=== PATIENT | female | born 1935 | race Caucasian/White ===

== ENCOUNTER → 2018-07-09 | Outpatient (CLI) | payer MEDICARE | LOC: LABPAT 09:38 | PROVIDERS: ATTEND Orthopaedic Surgery | DX: Z01.812 Encounter for preprocedural laboratory examination (principal); M16.11 Unilateral primary osteoarthritis, right hip | CPT/HCPCS: 87070 ==

== ENCOUNTER → 2018-07-13 | Outpatient (CLI) | payer MEDICARE ==
[2018-07-13 11:32] LABS: Partial Thromboplastin Time 22.8 sec (22.0-30.0); Prothrombin Time 9.8 sec (9.0-12.0)
== END ==
LOC: LABPAT 10:12
PROVIDERS: ATTEND Orthopaedic Surgery
DX: Z01.812 Encounter for preprocedural laboratory examination (principal); M16.11 Unilateral primary osteoarthritis, right hip; Z51.81 Encounter for therapeutic drug level monitoring; Z79.01 Long term (current) use of anticoagulants
CPT/HCPCS: 36415; 85610; 85730

== ENCOUNTER 2018-07-16 07:30 | Inpatient (IN) | payer MEDICARE ==
[2018-07-10 13:53] VITALS: BMI 26.2
--- NOTE | 2018-07-15 21:54 | HP ---
HISTORY AND PHYSICAL SURGERY SCHEDULED: 07/16/2018 Edie Beasley is a 83-year-old patient seen with symptomatic right hip osteoarthritis. We discussed treatment options. She elected to proceed with direct anterior right total hip arthroplasty. Consent regarding procedure obtained. Medical clearance by Dr. Jan Tinoco. PAST MEDICAL HISTORY: Hypercholesterolemia, hypertension. PAST SURGICAL HISTORY: Left total knee arthroplasty. DAILY MEDICATIONS: Atorvastatin, losartan. ALLERGIES: None reported. SOCIAL HISTORY: Patient denies current tobacco use. PHYSICAL EXAMINATION: Physical evaluation of the right hip: There is a limited range of motion with severe pain. Positive impingement sign. Straight leg raise is negative. Distal neurovascular exam intact. RADIOGRAPHS: Radiographs of the right hip reveals severe osteoarthritic changes. IMPRESSION: 1. Right hip osteoarthritis. 2. Hypertension. 3. Hyperlipidemia. PLAN: Direct anterior right total hip arthroplasty. MMODL / IJN: [id number] /
[~2018-07-16 07:30] MED LIST: ACETAMINOPHEN TAB 500 MG TAB PO ONE; DEXAMETHASONE SOD PHOSPHATE 10 MG/ML 1 ML VIAL IV ONE; LIDOCAINE 1% 20 ML VIAL (10MG/ML) FOR IV START INTRADERMA PRN; MELOXICAM 7.5 MG TAB PO ONE; MIDAZOLAM 2 MG/2 ML VIAL IV PRN; ONDANSETRON 4 MG/2 ML VIAL IVP ONE; TRANEXAMIC ACID 1,000 MG in SODIUM CHLORIDE 0.9% 50 ML IVPB ONE; ceFAZolin IN SWFI 2 GM/20 ML SYRINGE IVP ONE; fentaNYL (PF) 50 MCG/ML 2 ML AMP IV PRN
[2018-07-16] MEDS: LACTATED RINGERS 1,000 ML IV SCH (11:22)
[2018-07-16] MEDS ORDERED: ROPIVACAINE 246.25 MG, EPINEPHrine 0.5 MG, KETOROLAC 30 MG, cloNIDine HCL/PF 80 MCG, WA... MISCELLANE ONE ×5 (12:04)
[2018-07-16] MEDS ORDERED: PROPOFOL 10 MG/ML 20 ML VIAL IV ONE (12:46)
[2018-07-16] MEDS ORDERED: diphenhydrAMINE 50 MG/ML 1 ML VIAL ONE (12:46)
[2018-07-16] MEDS ORDERED: SODIUM CHLORIDE 0.9% 100 ML BAG ONE (12:46)
[2018-07-16] MEDS ORDERED: MIDAZOLAM 2 MG/2 ML VIAL ONE (12:46)
[2018-07-16] MEDS ORDERED: TRANEXAMIC ACID 1,000 MG/10 ML VIAL ONE (12:46)
[2018-07-16] MEDS ORDERED: ceFAZolin 3,000 MG in SODIUM CHLORIDE 0.9% IRRIGATIO 3,000 ML IRRIGATION ONE (13:26)
--- NOTE | 2018-07-16 14:44 | FL ---
EXAMINATION TYPE: FL guidance operating room DATE OF EXAM: 07/16/2018 HISTORY: Flouroscopy time 15 seconds of fluoroscopy provided. IMPRESSION: 1. Fluoroscopy time.
--- NOTE | 2018-07-16 14:45 | XR ---
EXAMINATION TYPE: XR Hip Limited RT DATE OF EXAM: 07/16/2018 COMPARISON: NONE HISTORY: Postop TECHNIQUE: One view submitted. FINDINGS: There is a prosthetic hip in near anatomic alignment. There is soft tissue edema and emphysema. IMPRESSION: 1. Postoperative change. Appears in near-anatomic alignment.
--- NOTE | 2018-07-16 14:46 | P.OP ---
Date of Procedure: 07/16/18 Preoperative Diagnosis: Right hip osteoarthritis Postoperative Diagnosis: Right hip osteoarthritis Procedure(s) Performed: Direct anterior right total hip arthroplasty Implants: 1. Depuy Actis size 6 standard collar press-fit femoral stem 2. Depuy pinnacle press-fit acetabular shell 52 mm 3. Depuy pinnacle polyethylene acetabular liner neutral 36 mm ID 52 mm OD 4. Depuy metal femoral head 36 mm -2 Anesthesia: local, spinal Surgeon: Abhishek Moran Buffet Attendant #1: Sinan Martinez Estimated Blood Loss (ml): 200 Pathology: other (Femoral head) Condition: stable Disposition: PACU Indications for Procedure: 83-year-old patient seen with symptomatic right hip osteoarthritis. After having treatment options discussed she elected to proceed with right total hip arthroplasty. Operative Findings: See description of procedure Description of Procedure: The patient was taken to the operative suite. Patient underwent a spinal anesthetic by the department of anesthesia. Patient was then transferred to the [place] table. Patient was given preoperative IV antibiotics and TXA. Both lower extremities were placed in standard leg spars. The hip was then prepped and draped in the normal sterile orthopedic fashion. A standard anterior incision was made beginning 3 cm lateral and 1 cm distal to the ASIS extending 10 cm. Dissection was then carried down through the subcutaneous soft tissues down to the fascia overlying the tensor fascia alex. An incision was now made through the fascia. Careful dissection was taken down exposing the tensor fascia alex muscle. A Cobra retractor was now placed along the medial femoral neck and a second one along the lateral femoral neck. The venous circumflex vessels were now identified, cauterized and clipped. We identified the anterior hip capsule. An incision was made through the hip capsule along the lateral border. I performed a partial anterior capsulectomy. Retractors were now placed around the femoral neck itself. A femoral neck cut was now made with a sagittal saw. It was completed with an osteotome at the lateral neck area. The femoral head was now removed without difficulty. There was moderate osteoarthritis of the femoral head and moderate/severe osteoarthritis of the acetabulum The extremity was now rotated to 45 of external rotation. It was locked in position. Residual labrum was now debrided out. Serial reaming was performed of the acetabulum while Marcus BERNARD assisted holding an anterior retractor for exposure. Once we reached the appropriate size and a trial was position and fit nicely. The appropriate size was now chosen opened and made available. It was introduced into the acetabulum without difficulty. The C-arm /fluoroscopy was now brought into the operative field. We made sure we had a true AP pelvic view. We now under direct C-arm/fluoroscopy introduced into the acetabular component with appropriate version and inclination. I held the cup in appropriate position well Marcus BERNARD used a mallet to seat the acetabular component. I noted the component now to be well seated and stable. Acetabular cup introduce her was removed. The C-arm was pulled back. An appropriate liner was introduced and clicked into position. It was felt to be stable. At this point retractors were removed. The extremity was now placed into 120 external rotation with no traction. The leg was now dropped to the ground and adducted. Appropriate retractors were now positioned along the proximal femur. We also placed our femoral look into position. Additional capsular releasing was performed to gain access to the proximal femur. We now used a box osteotome. A canal finder was now utilized. Serial broaching was now performed with the assistance of Marcus BERNARD tapping the broaches down with a mallet while held the broach in appropriate rotation and position. This was done until we reached the appropriate size with good overall rotational stability. Appropriate calcar planing was performed. A trial head/neck was placed into position. The hip was now reduced. The C-arm/fluoroscopy was brought back into the operative field. A spot film was obtained of the nonoperative hip. A spot film was obtained of the trial components. Overlays were performed, we noted good overall alignment and positioning for determining leg length. The C-arm/fluoroscopy was pulled back. Retractors were repositioned and the hip was dislocated. The leg was again taken down to the ground and adducted. Appropriate retractors were repositioned as well as the femoral hook. All trial components were removed. The femoral implant was opened along with the femoral head. The femoral implant was introduced on the appropriate handle into our pre-broached area. I held the component position well Marcus BERNARD used a mallet to seat the femoral component. The femoral component was now noted to be well seated and stable.. The femoral head was introduced with good positioning and fixation noted. Retractors were now removed. The hip was now reduced. There appeared be good positioning of the hip confirmed on intraoperative fluoroscopy. Spot films were obtained to document this. A second gram of TXA was given. The deep and superficial soft tissues were infiltrated with local analgesic. Bipolar cautery had been utilized intermittently through the procedure for hemostasis. The wound was irrigated copiously with pulse lavage mechanical irrigation. The fascia was repaired with Vicryl suture. The subcutaneous soft tissues were repaired in layers with Vicryl suture. The skin was approximated with pernio/Dermabond. Sterile dressings were applied. Patient was then awakened, transferred to a bed and taken to recovery in stable condition. Marcus BERNARD assisted with the complex procedure.
[2018-07-16] MEDS ORDERED: HYDROcodone/APAP 5-325MG 1 EACH TAB PO PRN (14:47)
[2018-07-16] MEDS ORDERED: traMADol 50 MG TAB PO PRN (14:47)
[2018-07-16] MEDS ORDERED: HYDROmorphone 1 MG/ML 1 ML SYRINGE IVP PRN ×3 (14:47)
[2018-07-16] MEDS ORDERED: ONDANSETRON 4 MG/2 ML VIAL IVP PRN (14:47)
[2018-07-16] MEDS ORDERED: NALOXONE 0.4 MG/ML 1 ML VIAL IV PRN (14:47)
[2018-07-16] MEDS ORDERED: LACTATED RINGERS 1,000 ML IV ONE (18:03)
[2018-07-16] MEDS: ceFAZolin IN SWFI 2 GM/20 ML SYRINGE IVP SCH (23:23)
[2018-07-16] MEDS: HYDROcodone/APAP 5-325MG 1 EACH TAB PO PRN (23:23)
[2018-07-16] MEDS: SENNOSIDES-DOCUSATE SODIUM 1 EACH TAB PO SCH (23:23)
[2018-07-17] MEDS: HYDROcodone/APAP 5-325MG 1 EACH TAB PO PRN ×2 (05:59→12:01)
[2018-07-17] MEDS: ceFAZolin IN SWFI 2 GM/20 ML SYRINGE IVP SCH (05:59)
[2018-07-17] MEDS: LACTATED RINGERS 1,000 ML IV SCH ×2 (06:10→22:09)
[2018-07-17 07:36] LABS: Basophils % (A) 0 %; Eosinophils % (A) 0 %; HCT 29.7 % (34.0-46.0); Lymphocytes # (A) 0.9 k/uL (1.0-4.8); Lymphocytes % (A) 11 %; MCH 32.8 pg (25.0-35.0); MCHC 33.5 g/dL (31.0-37.0); MCV 97.9 fL (80.0-100.0); Mean Platelet Volume 7.2; Monocytes # (A) 0.5 k/uL (0-1.0); Monocytes % (A) 6 %; Neutrophils # (A) 6.8 k/uL (1.3-7.7); Neutrophils % (A) 82 %; Platelet Count 181 k/uL (150-450); RBC 3.04 m/uL (3.80-5.40); RDW 13.2 % (11.5-15.5); WBC 8.4 k/uL (3.8-10.6)
[2018-07-17] MEDS ORDERED: LORATADINE 10 MG TAB PO PRN (09:27)
[2018-07-17] MEDS: ENOXAPARIN 40 MG/0.4 ML SYRINGE SQ SCH (10:25)
[2018-07-17] MEDS: FAMOTIDINE 20 MG TAB PO SCH (10:25)
[2018-07-17] MEDS: CITALOPRAM HYDROBROMIDE 20 MG TAB PO SCH (10:26)
[2018-07-17] MEDS: MULTIVITAMINS, THERA 1 EACH TAB PO SCH (10:26)
[2018-07-17] MEDS: VIT A,C & E-LUTEIN-MINERALS 1 EACH TAB PO SCH (12:02)
--- NOTE | 2018-07-17 13:26 | P.PN ---
Progress Note - Text Progress Note Date: 07/17/18 Patient seen resting comfortably in bed. Patient reports some pain in the hip. Patient denies any other current complaints. Incision stable. Gentle log roll with no pain. Distal neurovascular exam intact. Negative Blaise Lara. Impression: Status post right total hip arthroplasty Plan: Pain management Physical therapy Anticipate discharge tomorrow
[2018-07-17] MEDS: HYDROcodone/APAP 7.5-325MG 1 EACH TAB PO PRN ×2 (13:54→20:36)
--- NOTE | 2018-07-17 14:55 | P.CONS ---
History of Present Illness - Reason for Consult Consult date: 07/17/18 Medical management Requesting physician: Abhishek Moran - Chief Complaint Right total knee arthroplasty - History of Present Illness Is a pleasant 83-year-old female patient of Dr. Jan Tinoco. She has underlying history of hypertension hyperlipidemia osteoporosis skin cancer admitted service of Dr. Moran for right total knee arthroplasty performed on 07/17/2018. Patient is doing well postoperatively without any nausea no vomiting, pain control is adequate, patient is receiving opiates for pain control, she is performing therapies are as recommended, no lightheadedness no dizziness no chest pain no dyspnea and exertion. Patient denies any recent falls from home, no assistive devices for ambulation prior to admission. Patient denies any history of CVA RI CAD DVT or PE in the past. And she is expected to be discharged to home with home therapies. She progressed well Review of Systems Constitutional: Denies as per HPI, Denies anorexia, Denies chills, Denies chronic headaches, Denies chronic pain, Denies daytime sleepiness, Denies fatigue, Denies fever, Denies lethargy, Denies malaise, Denies night sweats, Denies poor appetite, Denies sweats, Denies weakness, Denies weight gain, Denies weight loss Cardiovascular: Reports as per HPI, Denies chest pain, Denies claudication, Denies decreased exercise tolerance, Denies dyspnea on exertion, Denies edema, Denies high blood pressure, Denies irregular heart beat, Denies leg edema, Denies lightheadedness, Denies orthopnea, Denies palpitations, Denies paroxysmal nocturnal dyspnea, Denies phlebitis, Denies rapid heart beat, Denies shortness of breath, Denies syncope Respiratory: Reports as per HPI, Denies congestion, Denies cough, Denies cough with sputum, Denies dyspnea, Denies excessive sputum, Denies hemoptysis, Denies home oxygen, Denies pain, Denies pain on inspiration, Denies pleurisy, Denies respiratory infections, Denies sleep apnea, Denies snoring, Denies wheezing Gastrointestinal: Reports as per HPI, Denies abdominal pain, Denies belching, Denies bloating, Denies BRBPR, Denies change in bowel habits, Denies coffee ground emesis, Denies constipation, Denies diarrhea, Denies dyspepsia, Denies early satiety, Denies excessive gas, Denies heartburn, Denies hematemesis, Denies hematochezia, Denies indigestion, Denies jaundice, Denies lactose intolerance, Denies loss of appetite, Denies melena, Denies nausea, Denies vomiting Genitourinary: Reports as per HPI Menstruation: Reports as per HPI, Reports postmenopausal Musculoskeletal: Reports as per HPI, Reports gait dysfunction, Reports loss of height, Reports low back pain, Denies arm numbness/tingling, Denies atrophy, Denies fractures, Denies frequent falls, Denies hot joints, Denies leg numbness/ tingling, Denies limitation of motion, Denies morning stiffness, Denies muscle cramps, Denies muscle weakness, Denies myalgias, Denies neck pain, Denies neck stiffness, Denies prior amputations, Denies redness of joints, Denies shooting arm pain, Denies shooting leg pain Integumentary: Reports as per HPI, Denies acne, Denies boils, Denies brittle nails, Denies change in hair/nails, Denies color changes, Denies darkening of skin, Denies depigmentation, Denies dryness, Denies foot/leg ulcers, Denies growths, Denies hirsutism, Denies lesions, Denies onychomycosis, Denies pruritus , Denies rash, Denies sores, Denies striae, Denies unusual bruising, Denies wounds Neurological: Reports as per HPI, Denies aphasia, Denies ataxia, Denies balance difficulties, Denies burning pain, Denies change in mentation, Denies change in smell/taste, Denies change in speech, Denies confusion, Denies convulsions, Denies double vision, Denies gait dysfunction, Denies head injury, Denies headaches, Denies hearing difficulties, Denies lack of coordination, Denies loss of vision, Denies memory loss, Denies migraines, Denies motor disturbance, Denies numbness, Denies paralysis, Denies paresthesias, Denies seizures, Denies sensory deficit, Denies spasticity, Denies syncope, Denies tic, Denies tingling , Denies transient paralysis, Denies tremors, Denies vertigo, Denies weakness, Denies visual changes Psychiatric: Denies as per HPI, Denies anhedonia, Denies anxiety, Denies anxiety attacks, Denies change in appetite, Denies change in libido, Denies change in sleep habits, Denies confusion, Denies depression, Denies difficulty concentrating, Denies disorientation, Denies hallucinations, Denies hopelessness , Denies hypersomnia, Denies insomnia, Denies irritability, Denies memory loss, Denies mood swings, Denies paranoia, Denies sadness/tearfulness, Denies sleep disturbances, Denies suicidal ideation Endocrine: Reports as per HPI, Denies cold intolerance, Denies deepening of the voice, Denies excessive sweating, Denies excessive thirst, Denies fatigue, Denies flushing, Denies heat intolerance, Denies high blood sugars, Denies increase in ring/shoe/hat size, Denies low blood sugars, Denies nocturia, Denies palpitations, Denies polydipsia, Denies polyphagia, Denies polyuria, Denies proptosis, Denies recent glucocorticoid use, Denies thyroid mass, Denies weight change Hematologic/Lymphatic: Reports as per HPI 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 History of Any Multi-Drug Resistant Organisms: None Reported Past Surgical History: Joint Replacement, Orthopedic Surgery Additional Past Surgical History / Comment(s): lt knee replacement, lt femur fx repair with hardware Past Anesthesia/Blood Transfusion Reactions: Previous Problems w/ Anesthesia, Motion Sickness Additional Past Anesthesia/Blood Transfusion Reaction / Comm: hard time waking from anesthesia Smoking Status: Former smoker - Past Family History Mother History Unknown: Yes Family Medical History: Neurologic Disorder (Myasthenia gravis) Additional Family Medical History / Comment(s): myasthenia gravis Sister(s) History Unknown: Yes (Macular degeneration) Family Medical History: Diabetes Mellitus Additional Family Medical History / Comment(s): phlebitis Father Family Medical History: Congestive Heart Failure (CHF) Brother(s) Family Medical History: Cancer (Prostate) Daughter(s) Family Medical History: Osteoarthritis (OA) Son(s) Family Medical History: Unable to Obtain Medications and Allergies Home Medications Medication Instructions Recorded Confirmed Type Atorvastatin [Lipitor] 10 mg PO HS 07/10/18 07/16/18 History Calcium Carbonate/Vitamin D3 1 tab PO DAILY 07/10/18 07/16/18 History [Calcium 500-Vit D3 200 Tablet] Citalopram Hydrobromide [CeleXA] 20 mg PO DAILY 07/10/18 07/16/18 History Fish Oil/Dha/Epa [Fish Oil 1,200 1 cap PO DAILY 07/10/18 07/16/18 History mg Fish Oil] Loratadine [Claritin] 10 mg PO DAILY 07/10/18 07/16/18 History Losartan [Cozaar] 100 mg PO HS 07/10/18 07/16/18 History Multivitamins, Thera [Multivitamin 1 tab PO DAILY 07/10/18 07/16/18 History (formulary)] Vit C/E/Zn/Coppr/Lutein/Zeaxan 1 cap PO BID 07/10/18 07/16/18 History [Preservision Areds 2 Softgel] Allergies Allergy/AdvReac Type Severity Reaction Status Date / Time gluten Allergy Nausea & Verified 07/16/18 18:17 Vomiting & Diarrhea Physical Exam Vitals: Vital Signs Temp Pulse Pulse Pulse Resp BP Pulse Ox 07/17/18 07:39 97.9 F 61 16 121/52 92 L 07/17/18 00:00 98.1 F 71 15 118/56 94 L 07/16/18 20:10 76 71 07/16/18 19:00 98.2 F 78 16 158/64 95 07/16/18 18:26 98.5 F 84 16 151/57 90 L 07/16/18 18:00 76 16 145/56 97 07/16/18 17:15 76 22 144/53 96 07/16/18 16:30 77 18 146/66 94 L 07/16/18 16:00 76 16 132/59 95 07/16/18 15:45 73 12 135/55 96 07/16/18 15:30 73 16 133/66 96 07/16/18 15:18 75 16 157/84 96 07/16/18 15:06 97.7 F 75 16 184/57 96 Intake and Output 07/16/18 07/17/18 07/17/18 22:59 06:59 14:59 Intake Total 1000 560 Balance 1000 560 Intake: IV 1000 Intake, IV Titration 160 Amount Lactated Ringers 1,000 ml 160 @ 20 mls/hr IV .Q24H [facility] Rx#:[id number] Oral 400 Other: Voiding Method Bedside Commode # Voids 1 2 - Constitutional General appearance: average body habitus, cooperative, no disheveled, no mild distress, no morbidly obese, no no acute distress, no obese, no severe distress , no thin - EENT Eyes: no abnormal pupil, anicteric sclerae, no disc margins sharp, no edentulous , EOMI, PERRLA, no fundus normal, no photophobia, dentition normal, no poor dentition, no ptosis, no scleral icterus, normal appearance ENT: hard of hearing, no hearing grossly normal, NA/AT, normal oropharynx, no other, no pharyngeal erythema, no thrush, no tonsillar exudates, no tonsillar swelling - Respiratory Respiratory: bilateral: CTA, negative: diminished, dullness, rales, rhonchi, wheezing, prolonged expiration - Cardiovascular Rhythm: regular Heart sounds: normal: S1 Abnormal Heart Sounds: no systolic murmur, no diastolic murmur, no rub, no S3 Gallop, no S4 Gallop, no click, no other - Gastrointestinal General gastrointestinal: no absent bowel sounds, no decreased bowel sounds, no distended, no hepatomegaly, no hyperactive bowel sounds, normal bowel sounds, no organomegaly, no rigid, no scaphoid, soft, no splenomegaly, no tenderness, no umbilical hernia, no ventral hernia - Neurologic Neurologic: CNII-XII intact - Musculoskeletal Musculoskeletal: generalized weakness, strength equal bilaterally - Psychiatric Psychiatric: A&O x's 3, appropriate affect Results CBC & Chem 7: 07/17/18 07:08 07/16/18 11:21 Labs: Abnormal Lab Results - Last 24 Hours (Table) 07/17/18 Range/Units 07:08 RBC 3.04 L (3.80-5.40) m/uL Hgb 10.0 L (11.4-16.0) gm/dL Hct 29.7 L (34.0-46.0) % Lymphocytes # 0.9 L (1.0-4.8) k/uL Laboratory Results WBC 8.4 k/uL (3.8-10.6) 07/17/18 07:08 RBC 3.04 m/uL (3.80-5.40) L 07/17/18 07:08 Hgb 10.0 gm/dL (11.4-16.0) L 07/17/18 07:08 Hct 29.7 % (34.0-46.0) L 07/17/18 07:08 MCV 97.9 fL (80.0-100.0) 07/17/18 07:08 MCH 32.8 pg (25.0-35.0) 07/17/18 07:08 MCHC 33.5 g/dL (31.0-37.0) 07/17/18 07:08 RDW 13.2 % (11.5-15.5) 07/17/18 07:08 Plt Count 181 k/uL (150-450) 07/17/18 07:08 Neutrophils % 82 % 07/17/18 07:08 Lymphocytes % 11 % 07/17/18 07:08 Monocytes % 6 % 07/17/18 07:08 Eosinophils % 0 % 07/17/18 07:08 Basophils % 0 % 07/17/18 07:08 Neutrophils # 6.8 k/uL (1.3-7.7) 07/17/18 07:08 Lymphocytes # 0.9 k/uL (1.0-4.8) L 07/17/18 07:08 Monocytes # 0.5 k/uL (0-1.0) 07/17/18 07:08 Eosinophils # 0.0 k/uL (0-0.7) 07/17/18 07:08 Basophils # 0.0 k/uL (0-0.2) 07/17/18 07:08 Potassium 4.1 mmol/L (3.5-5.1) 07/16/18 11:21 Blood Type O Negative 07/09/18 09:45 Blood Type Confirm O Negative 07/16/18 11:15 Blood Type Recheck CABO Indicated 07/09/18 09:45 Antibody Screen NEGATIVE 07/09/18 09:45 Spec Expiration Date 07/18/2018 07/09/18 09:45 Assessment and Plan Plan: 1. Right total knee arthroplasty performed on 07/16/2018, postop day #1, patient is receiving DVT prophylaxis with aspirin, continue incentive spirometry , opiates for pain control, and physical therapy of additional therapy. Patient expected to be discharged with home therapies, depending on physical endurance and other symptoms, skilled ECF is on backup 2. Hyperlipidemia on Lipitor 3. Disorder of bone density, possible osteoporosis, continue Os-Doroteo vitamin D, patient is not on any biphosphonate's prior to admission, appropriate bone density monitoring as outpatient as scheduled 4. Hypertension currently normotensive, on losartan 100 mg daily 6. Dysthymia stable on Celexa 20 no changes made 7. Anemia, possibly multifactorial, we will check CBC in a.m., iron supplementation started DVT prophylaxis aspirin 81 mg twice a day post discharge, continue on Lovenox 40 mg daily. Patient doesn't have any history of previous DVT in the past for PE in the past GI prophylaxis. Pepcid Discharge planning home therapies as expected Thank you Dr. Moran allowing us to participate in the care The patient. We' ll follow her with you during this current hospitalization, recommendations to her treatment to be made on her clinical progress
[2018-07-17] MEDS: FERROUS SULFATE 325 MG TAB PO SCH (19:19)
[2018-07-17] MEDS: SENNOSIDES-DOCUSATE SODIUM 1 EACH TAB PO SCH (20:35)
[2018-07-17] MEDS ORDERED: LOSARTAN 50 MG TAB PO SCH (21:00)
[2018-07-17] MEDS ORDERED: ATORVASTATIN 10 MG TAB PO SCH (21:00)
[2018-07-18] MEDS: HYDROcodone/APAP 7.5-325MG 1 EACH TAB PO PRN ×2 (02:11→09:15)
[2018-07-18 02:17] VITALS: RESP 16; TEMP 98.5
[2018-07-18 07:57] VITALS: BP 131/62; PULSE 75
[2018-07-18] MEDS ORDERED: CALCIUM CARB-VIT D 500MG-200UN 1 EACH TAB PO SCH (09:00)
[2018-07-18] MEDS: CITALOPRAM HYDROBROMIDE 20 MG TAB PO SCH (09:11)
[2018-07-18] MEDS: FAMOTIDINE 20 MG TAB PO SCH (09:11)
[2018-07-18] MEDS: ENOXAPARIN 40 MG/0.4 ML SYRINGE SQ SCH (09:11)
--- NOTE | 2018-07-18 10:13 | P.PN ---
Subjective Progress Note Date: 07/18/18 Principal diagnosis: Status post right total hip arthroplasty Patient seen today resting her hospital bed, she appears comfortable. She notes some discomfort ambulating. Denies any headaches, chest pain or shortness of breath. Objective - Vital Signs Vital signs: Vital Signs Temp 98.5 F 07/18/18 07:00 Pulse 75 07/18/18 07:00 Resp 16 07/18/18 07:00 BP 131/62 07/18/18 07:00 Pulse Ox 92 L 07/18/18 07:00 Intake & Output 07/17/18 07/18/18 07/18/18 18:59 06:59 18:59 Intake Total 400 Balance 400 Intake: Oral 400 Other: Voiding Method Toilet # Voids 2 2 - Exam Right lower extremity: Incision is clean, dry, and intact. Exofin is in good condition. There is minimal soft tissue swelling and ecchymosis surrounding the medial and lateral aspects of the incision. Calf is soft, no tenderness with palpation. Plantar flexion, dorsiflexion, EHL, FHL are intact. Sensory exam to light touch throughout the extremity is intact, dorsal pedis pulses 2+. - Labs CBC & Chem 7: 07/17/18 07:08 07/16/18 11:21 Assessment and Plan Plan: Assessment: Postoperative day #2 status post right total hip arthroplasty Plan: Pain control, we'll discharge on oral medication GI and DVT prophylaxis, aspirin 81 mg twice a day Home therapy and nursing after discharge Wound care instructions discussed Medical recommendations Discharge planning: Hopeful discharge to home today Time with Patient: Less than 30
[2018-07-18 10:41] LABS: Calcium 8.2 mg/dL (8.4-10.2)
[2018-07-18 10:45] LABS: HCT 29.8 % (34.0-46.0); MCH 32.9 pg (25.0-35.0); MCHC 33.5 g/dL (31.0-37.0); MCV 98.1 fL (80.0-100.0); Mean Platelet Volume 7.8; Platelet Count 170 k/uL (150-450); RBC 3.03 m/uL (3.80-5.40); RDW 13.3 % (11.5-15.5); WBC 7.2 k/uL (3.8-10.6)
[2018-07-18] MEDS: FERROUS SULFATE 325 MG TAB PO SCH (11:42)
[2018-07-18] MEDS: VIT A,C & E-LUTEIN-MINERALS 1 EACH TAB PO SCH (11:42)
[2018-07-18] MEDS: MULTIVITAMINS, THERA 1 EACH TAB PO SCH (11:42)
--- NOTE | 2018-07-18 12:39 | P.DS ---
Providers Date of admission: 07/16/18 10:26 Expected date of discharge: 07/18/18 Attending physician: Abhishek Moran Consults: 07/16/18 14:47 Consult Physician Routine Consulting Provider: Grupo Tinoco Consult Reason/Comments: Medical management Do you want consulting provider notified?: Yes 07/16/18 18:25 Consult Physician Routine Consulting Provider: Dean Aguirre Reason/Comments: medical managment Do you want consulting provider notified?: Yes Primary care physician: Grupo Tinoco Hospital Course: Date of admission: 07/16/2018 Date of discharge: 07/18/2018 Admission diagnosis: Status post right total hip arthroplasty Discharge diagnosis: Same Attending physician: Dr. Moran Surgical procedures: Right total hip arthroplasty Brief history: Patient is a 83-year-old female with a history of progressive primary right hip osteoarthritis. At this point patient has failed conservative treatment measures and has opted to proceed with a elective right total hip arthroplasty. Hospital course: Details of patient's surgery can be found in operative report. Patient tolerated the procedure well and was subsequently transported to orthopedic floor. Patient's orthopeidc and medical care was provided daily. Patient had daily laboratory tests performed for evaluation of overall blood counts. Patient had daily physical therapy to include strengthening range of motion as well as education with walker ambulation. Patient was treated with Lovenox for their postoperative DVT prophylaxis during their inpatient stay. Patient was noted to have a relatively uneventful postoperative course. Patient reported satisfactory pain control with oral pain medications by postoperative day 0. Patient showed satisfactory progress with physical therapy. Patient moved steadily through the program and had no difficulty meeting the goals by postoperative day 2. Given patient's otherwise satisfactory course and having met physical therapy goals, plan is to discharge patient home on postoperative day 2. Discharge condition/disposition: Patient will be discharged home in stable condition. Discharge medications: Instructions are given on resumption of patient's normal daily medications per primary care recommendation, in addition patient will be prescribed Highland 7.5 mg/325 mg, aspirin 81 mg, ferrous sulfate 325 mg. Discharge instructions: 1. Wound care and infection precautions, keep incision dry and covered while showering, no lotions, creams, moisturizers. No soaking, tubs, pools, hottubs. Do not scrub over the incision. 2. Weight-bear as tolerated with walker / cane until follow-up. 3. Ice and elevate when necessary. Do not exceed 20 minutes per hour with ice pack. 4. Utilize compression sleeve until seen at first follow up appointment. 5. Visiting nursing care. 6. Home physical therapy. 7. Pain meds and anticoagulants per prescription. 8. Pain medication has potential to cause constipation. Increase oral fluid and fiber intake. Contact primary care provider if you have not had a bowel movement within 48 hours after discharge 9. No anti-inflammatory medication until discussed at first post operative visit, this including Motrin, Aleve, Mobic, Diclofenac. 10. Follow up in office at 2 weeks postop with Marcus Martinez PA-C 11. Follow up with your primary care doctor 7-10 days after discharge. 12. Contact [facility] with any questions, . Procedures: Right total hip arthroplasty Patient Condition at Discharge: Good Plan - Discharge Summary Discharge Rx Participant: Yes New Discharge Prescriptions: New Ferrous Sulfate [Feosol] 325 mg PO DAILY #30 tab Aspirin [Adult Low Dose Aspirin EC] 81 mg PO BID #60 tablet. HYDROcodone/APAP 7.5-325MG [Highland 7.5] 1 - 2 each PO Q6HR PRN #40 tab PRN Reason: Pain No Action Loratadine [Claritin] 10 mg PO DAILY Calcium Carbonate/Vitamin D3 [Calcium 500-Vit D3 200 Tablet] 1 tab PO DAILY Multivitamins, Thera [Multivitamin (formulary)] 1 tab PO DAILY Fish Oil/Dha/Epa [Fish Oil 1,200 mg Fish Oil] 1 cap PO DAILY Losartan [Cozaar] 100 mg PO HS Citalopram Hydrobromide [CeleXA] 20 mg PO DAILY Atorvastatin [Lipitor] 10 mg PO HS Vit C/E/Zn/Coppr/Lutein/Zeaxan [Preservision Areds 2 Softgel] 1 cap PO BID Discharge Medication List Atorvastatin [Lipitor] 10 mg PO HS 07/10/18 [History] Calcium Carbonate/Vitamin D3 [Calcium 500-Vit D3 200 Tablet] 1 tab PO DAILY [History] Citalopram Hydrobromide [CeleXA] 20 mg PO DAILY 07/10/18 [History] Fish Oil/Dha/Epa [Fish Oil 1,200 mg Fish Oil] 1 cap PO DAILY 07/10/18 [History] Loratadine [Claritin] 10 mg PO DAILY 07/10/18 [History] Losartan [Cozaar] 100 mg PO HS 07/10/18 [History] Multivitamins, Thera [Multivitamin (formulary)] 1 tab PO DAILY 07/10/18 [History ] Vit C/E/Zn/Coppr/Lutein/Zeaxan [Preservision Areds 2 Softgel] 1 cap PO BID 07/10 [History] Aspirin [Adult Low Dose Aspirin EC] 81 mg PO BID #60 tablet.dr 07/18/18 [Rx] Ferrous Sulfate [Feosol] 325 mg PO DAILY #30 tab 07/18/18 [Rx] HYDROcodone/APAP 7.5-325MG [Highland 7.5] 1 - 2 each PO Q6HR PRN #40 tab 07/18/18 [ Rx] Follow up Appointment(s)/Referral(s): [facility], [NON-STAFF] - Sinan Martinez PAC [PHYSICIAN WIND SITE MANAGER] - 08/03/18 2:10 pm Grupo Tinoco MD [Primary Care Provider] - 07/24/18 9:30 am (Office staff said if appointment time is too early please feel free to call and move to a later time) Patient Instructions/Handouts: Anterior Hip Replacement (DC) Activity/Diet/Wound Care/Special Instructions: Orthopedic Discharge Instructions: 1. Wound care and infection precautions, keep incision dry and covered while showering, no lotions, creams, moisturizers. No soaking, pools, hot tubs. Do not scrub over incision. 2. Weight-bear as tolerated with walker / cane until follow-up. 3. Ice and elevate when necessary. Do not exceed 20 minutes per hour with ice pack. 4. Utilize compression sleeve until seen at first follow up appointment. 5. Pain meds and anticoagulants per prescription. 6. Pain medication has potential to cause constipation. Increase oral fluid and fiber intake. Contact primary care provider if you have not had a bowel movement within 48 hours after discharge. 7. No anti-inflammatory medication until discussed at first post operative visit, this including Motrin, Aleve, Mobic, Diclofenac. 8. Follow up in office at 2 weeks postop with Marcus Martinez PA-C 9. Follow up with your primary care doctor 7-10 days after discharge. 10. Contact [facility] with any questions, . Discharge Disposition: HOME WITH HOME HEALTH SERVICES
--- NOTE | 2018-07-19 11:09 | P.PN ---
Subjective Progress Note Date: 07/18/18 Is a pleasant 83-year-old female patient of Dr. Jan Tinoco. She has underlying history of hypertension hyperlipidemia osteoporosis skin cancer admitted service of Dr. Moran for right total knee arthroplasty performed on 07/17/2018. Patient is doing well postoperatively without any nausea no vomiting, pain control is adequate, patient is receiving opiates for pain control, she is performing therapies are as recommended, no lightheadedness no dizziness no chest pain no dyspnea and exertion. Patient denies any recent falls from home, no assistive devices for ambulation prior to admission. Patient denies any history of CVA CO CAD DVT or PE in the past. And she is expected to be discharged to home with home therapies. She progressed well 07/18: Patient has been hemodynamically stable, afebrile, pulse ox 92-93% on room air. Patient has been participating in physical therapy. Hgb 10. Recommend Ferrous sulfate daily for 4 weeks. Patient is scheduled for discharge home today with home care. Review Of Systems: Constitutional: No fever, no chills. EENT: No headache. No epistaxis. No sore throat. Lungs: No shortness of breath, cough, no sputum production. No wheezing. Cardiovascular: No chest pain. No lightheadedness or dizziness. No syncopal episodes. Abdominal: No abdominal pain. No nausea, vomiting. No diarrhea. No constipation. No bloody or tarry stools. Genitourinary: No dysuria, increased frequency, urgency. No urinary retention. Musculoskeletal: No myalgias. No muscle weakness, no gait dysfunction, no frequent falls. No back pain. No neck pain. Integumentary: + wounds, no lesions. No rash or pruritus. Neurologic: No aphasia. No facial droop. No change in mentation. No headache. No paralysis. No paresthesia. Psychiatric: No depression. No anxiety. No mood swings. Endocrine: No abnormal blood sugars. N Objective - Vital Signs Vital signs: Vital Signs Temp 98.5 F 07/18/18 07:00 Pulse 75 07/18/18 07:00 Resp 16 07/18/18 07:00 BP 131/62 07/18/18 07:00 Pulse Ox 92 L 07/18/18 07:00 Intake & Output 07/17/18 07/18/18 07/18/18 18:59 06:59 18:59 Other: Voiding Method Toilet # Voids 2 2 - Exam General appearance: average body habitus, cooperative, no disheveled, no mild distress, no morbidly obese, no no acute distress, no obese, no severe distress , no thin - EENT Eyes: no abnormal pupil, anicteric sclerae, no disc margins sharp, no edentulous , EOMI, PERRLA, no fundus normal, no photophobia, dentition normal, no poor dentition, no ptosis, no scleral icterus, normal appearance ENT: hard of hearing, no hearing grossly normal, NA/AT, normal oropharynx, no other, no pharyngeal erythema, no thrush, no tonsillar exudates, no tonsillar swelling - Respiratory Respiratory: bilateral: CTA, negative: diminished, dullness, rales, rhonchi, wheezing, prolonged expiration - Cardiovascular Rhythm: regular Heart sounds: normal: S1 Abnormal Heart Sounds: no systolic murmur, no diastolic murmur, no rub, no S3 Gallop, no S4 Gallop, no click, no other - Gastrointestinal General gastrointestinal: no absent bowel sounds, no decreased bowel sounds, no distended, no hepatomegaly, no hyperactive bowel sounds, normal bowel sounds, no organomegaly, no rigid, no scaphoid, soft, no splenomegaly, no tenderness, no umbilical hernia, no ventral hernia - Neurologic Neurologic: CNII-XII intact - Musculoskeletal Musculoskeletal: generalized weakness, strength equal bilaterally, right hip wound covered with small dressing. Incision clean and dry. - Psychiatric Psychiatric: A&O x's 3, appropriate affect - Labs CBC & Chem 7: 07/18/18 08:52 07/18/18 08:52 Assessment and Plan Plan: 1. Right total knee arthroplasty performed on 07/16/2018, patient is receiving DVT prophylaxis with aspirin, continue incentive spirometry, opiates for pain control, and physical therapy. Patient expected to be discharged with home therapies, depending on physical endurance and other symptoms, skilled ECF is on backup 2. Hyperlipidemia on Lipitor 3. Disorder of bone density, possible osteoporosis, continue Os-[place]o vitamin D, patient is not on any biphosphonate's prior to admission, appropriate bone density monitoring as outpatient as scheduled 4. Hypertension currently normotensive, on losartan 100 mg daily 6. Dysthymia stable on Celexa 20 no changes made 7. Anemia, possibly multifactorial, we will check CBC in a.m., iron supplementation started DVT prophylaxis aspirin 81 mg twice a day post discharge. Patient doesn't have any history of previous DVT in the past for PE in the past GI prophylaxis. Pepcid Discharge plan: Home with [facility] Impression and plan of care have been directed as dictated by the signing physician. Ruth Ann Wang nurse practitioner acting as scribe for signing physician.
== END 2018-07-18 14:22 | disposition home health service (06) | DRG 470 ==
LOC: 2ORMAIN 10:26 → 4SSUR 18:01
PROVIDERS: ADMIT Orthopaedic Surgery; ATTEND Orthopaedic Surgery
PROC: 0SR902A Replacement of Right Hip Joint with Metal on Polyethylene Synthetic Substitute, Uncemented, Open Approach (ICD-10-PCS; principal; 2018-07-16 12:25)
DX: M16.11 Unilateral primary osteoarthritis, right hip (principal); E78.00 Pure hypercholesterolemia, unspecified; E78.5 Hyperlipidemia, unspecified; I10 Essential (primary) hypertension; M81.0 Age-related osteoporosis without current pathological fracture; J30.9 Allergic rhinitis, unspecified; K90.0 Celiac disease; Z96.652 Presence of left artificial knee joint; Z79.899 Other long term (current) drug therapy; Z82.49 Family history of ischemic heart disease and other diseases of the circulatory system; Z83.3 Family history of diabetes mellitus; Z85.828 Personal history of other malignant neoplasm of skin; Z87.891 Personal history of nicotine dependence; Z87.81 Personal history of (healed) traumatic fracture; Z91.018 Allergy to other foods; F34.1 Dysthymic disorder; D64.9 Anemia, unspecified
CPT/HCPCS: 36415; 73501; 80048; 84132; 85025; 85027; 85610; 85730; 86850; 86900; 86901; 88300

== ENCOUNTER 2019-03-29 12:02 | Inpatient (IN) | payer MEDICARE ==
[2019-03-29] MEDS ORDERED: HEPARIN SODIUM,PORCINE 5,000 UNIT/ML 1 ML VIAL IV ONE (12:47)
[2019-03-29] MEDS ORDERED: HEPARIN SOD,PORK IN 0.45% NACL 25,000 UNIT in 0.45% NACL 1 250ML.BAG IV SCH (13:00)
--- NOTE | 2019-03-29 13:01 | ED ---
General Adult HPI - General Chief complaint: Arrhythmia/Palpitations Stated complaint: Fast Heart Rate Time Seen by Provider: 03/29/19 12:15 Source: patient, RN notes reviewed Mode of arrival: wheelchair Limitations: no limitations - History of Present Illness Initial comments: This is an 83-year-old female presents to the emergency department complaining of palpitations and lightheadedness. Patient states it started this morning. Patient states he continues currently. Patient denies any chest pain. Patient denies shortness of breath or difficulty breathing. Patient denies any recent fever chills per patient denies similar symptoms. Patient states at home and her heart rate got 240 beats a minute. Patient denies any headache patient denies any numbness weakness. Patient denies abdominal pain patient denies nausea vomiting or diarrhea. Patient denies any swelling to the legs or calf tenderness. - Related Data Home Medications Medication Instructions Recorded Confirmed Atorvastatin [Lipitor] 10 mg PO HS 07/10/18 03/29/19 Calcium Carbonate/Vitamin D3 1 tab PO DAILY 07/10/18 03/29/19 [Calcium 500-Vit D3 200 Tablet] Citalopram Hydrobromide [CeleXA] 20 mg PO DAILY 07/10/18 03/29/19 Loratadine [Claritin] 10 mg PO DAILY 07/10/18 03/29/19 Losartan [Cozaar] 100 mg PO HS 07/10/18 03/29/19 Multivitamins, Thera [Multivitamin 1 tab PO DAILY 07/10/18 03/29/19 (formulary)] Vit C/E/Zn/Coppr/Lutein/Zeaxan 1 cap PO BID 07/10/18 03/29/19 [Preservision Areds 2 Softgel] [id number] 1 tab PO Q8H 03/29/19 03/29/19 [Excedrin] Chlorthalidone 25 mg PO DAILY 03/29/19 03/29/19 Fish Oil/Dha/Epa [Fish Oil 1,200 2 cap PO BID 03/29/19 03/29/19 mg Fish Oil] Ibuprofen [Motrin Ib] 600 mg PO Q8H 03/29/19 03/29/19 Previous Rx's Medication Instructions Recorded Ferrous Sulfate [Feosol] 325 mg PO DAILY #30 tab 07/18/18 Allergies Allergy/AdvReac Type Severity Reaction Status Date / Time gluten Allergy Nausea & Verified 03/29/19 12:18 Vomiting & Diarrhea Review of Systems ROS Statement: Those systems with pertinent positive or pertinent negative responses have been documented in the HPI. ROS Other: All systems not noted in ROS Statement are negative. 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, ciliac's History of Any Multi-Drug Resistant Organisms: None Reported Past Surgical History: Joint Replacement, Orthopedic Surgery Additional Past Surgical History / Comment(s): lt knee replacement, lt femur fx repair with hardware, hip replacement Past Anesthesia/Blood Transfusion Reactions: Previous Problems w/ Anesthesia, Motion Sickness Additional Past Anesthesia/Blood Transfusion Reaction / Comment(s): hard time waking from anesthesia Past Psychological History: Anxiety Smoking Status: Former smoker Past Alcohol Use History: Occasional Past Drug Use History: None Reported - Past Family History Mother History Unknown: Yes Family Medical History: Neurologic Disorder (Myasthenia gravis) Additional Family Medical History / Comment(s): myasthenia gravis Sister(s) History Unknown: Yes (Macular degeneration) Family Medical History: Diabetes Mellitus Additional Family Medical History / Comment(s): phlebitis Father Family Medical History: Congestive Heart Failure (CHF) Brother(s) Family Medical History: Cancer (Prostate) Daughter(s) Family Medical History: Osteoarthritis (OA) Son(s) Family Medical History: Unable to Obtain General Exam - General Exam Comments Initial Comments: GENERAL: Patient is well-developed and well-nourished. Patient is nontoxic and well- hydrated and is in mild distress. ENT: Neck is soft and supple. No significant lymphadenopathy is noted. Oropharynx is clear. Moist mucous membranes. Neck has full range of motion without eliciting any pain. EYES: The sclera were anicteric and conjunctiva were pink and moist. Extraocular movements were intact and pupils were equal round and reactive to light. Eyelids were unremarkable. PULMONARY: Unlabored respirations. Good breath sounds bilaterally. No audible rales rhonchi or wheezing was noted. CARDIOVASCULAR: Patient is a regular rate and rhythm 130 beats minute ABDOMEN: Soft and nontender with normal bowel sounds. SKIN: Skin is clear with no lesions or rashes and otherwise unremarkable. NEUROLOGIC: Patient is alert and oriented x3. Cranial nerves II through XII are grossly intact. Motor and sensory are also intact. Normal speech, volume and content. Symmetrical smile. MUSCULOSKELETAL: Normal extremities with adequate strength and full range of motion. No lower extremity swelling or edema. No calf tenderness. LYMPHATICS: No significant lymphadenopathy is noted PSYCHIATRIC: Normal psychiatric evaluation. Limitations: no limitations Course Vital Signs 03/29/19 03/29/19 03/29/19 12:15 12:38 12:40 Temperature 98.2 F Pulse Rate 128 H 120 H Pulse Rate [ 120 H [employer] Analyst ] Respiratory 18 18 Rate Blood Pressure 130/80 164/91 O2 Sat by Pulse 100 99 Oximetry Medical Decision Making - Medical Decision Making EKG shows atrial fibrillation with rapid ventricular response at 118 bpm QRS is 98 QT interval 316 QTC is 442 per patient's EKG shows no ST segment elevation or depression. No Patient's chest x-ray shows no acute abnormality. Patient was placed on heparin drip after heparin bolus. Patient was also placed on a Cardizem drip for the A. fib with RVR. - Lab Data Result diagrams: 03/29/19 12:39 03/29/19 12:39 Lab Results 03/29/19 03/29/19 03/29/19 Range/Units 12:39 12:39 12:39 WBC 7.2 (3.8-10.6) k/uL RBC 4.18 (3.80-5.40) m/uL Hgb 13.4 (11.4-16.0) gm/dL Hct 40.3 (34.0-46.0) % MCV 96.3 (80.0-100.0) fL MCH 32.1 (25.0-35.0) pg MCHC 33.3 (31.0-37.0) g/dL RDW 13.1 (11.5-15.5) % Plt Count 242 (150-450) k/uL Neutrophils % 72 % Lymphocytes % 16 % Monocytes % 5 % Eosinophils % 2 % Basophils % 1 % Neutrophils # 5.2 (1.3-7.7) k/uL Lymphocytes # 1.1 (1.0-4.8) k/uL Monocytes # 0.4 (0-1.0) k/uL Eosinophils # 0.1 (0-0.7) k/uL Basophils # 0.0 (0-0.2) k/uL PT 9.9 (9.0-12.0) sec INR 0.9 (<1.2) APTT 22.6 (22.0-30.0) sec Sodium 134 L (137-145) mmol/L Potassium 4.3 (3.5-5.1) mmol/L Chloride 96 L (98-107) mmol/L Carbon Dioxide 27 (22-30) mmol/L Anion Gap 11 mmol/L BUN 30 H (7-17) mg/dL Creatinine 0.89 (0.52-1.04) mg/dL Est GFR (CKD-EPI)AfAm 70 (>60 ml/min/1.73 sqM) Est GFR (CKD-EPI)NonAf 61 (>60 ml/min/1.73 sqM) Glucose 91 (74-99) mg/dL Calcium 10.5 H (8.4-10.2) mg/dL Magnesium 1.8 (1.6-2.3) mg/dL Total Bilirubin 0.5 (0.2-1.3) mg/dL AST 39 H (14-36) U/L ALT 31 (9-52) U/L Alkaline Phosphatase 71 (38-126) U/L Troponin I (0.000-0.034) ng/mL Total Protein 7.3 (6.3-8.2) g/dL Albumin 4.3 (3.5-5.0) g/dL TSH 1.200 (0.465-4.680) mIU/L 03/29/19 Range/Units 12:39 WBC (3.8-10.6) k/uL RBC (3.80-5.40) m/uL Hgb (11.4-16.0) gm/dL Hct (34.0-46.0) % MCV (80.0-100.0) fL MCH (25.0-35.0) pg MCHC (31.0-37.0) g/dL RDW (11.5-15.5) % Plt Count (150-450) k/uL Neutrophils % % Lymphocytes % % Monocytes % % Eosinophils % % Basophils % % Neutrophils # (1.3-7.7) k/uL Lymphocytes # (1.0-4.8) k/uL Monocytes # (0-1.0) k/uL Eosinophils # (0-0.7) k/uL Basophils # (0-0.2) k/uL PT (9.0-12.0) sec INR (<1.2) APTT (22.0-30.0) sec Sodium (137-145) mmol/L Potassium (3.5-5.1) mmol/L Chloride (98-107) mmol/L Carbon Dioxide (22-30) mmol/L Anion Gap mmol/L BUN (7-17) mg/dL Creatinine (0.52-1.04) mg/dL Est GFR (CKD-EPI)AfAm (>60 ml/min/1.73 sqM) Est GFR (CKD-EPI)NonAf (>60 ml/min/1.73 sqM) Glucose (74-99) mg/dL Calcium (8.4-10.2) mg/dL Magnesium (1.6-2.3) mg/dL Total Bilirubin (0.2-1.3) mg/dL AST (14-36) U/L ALT (9-52) U/L Alkaline Phosphatase (38-126) U/L Troponin I 0.027 (0.000-0.034) ng/mL Total Protein (6.3-8.2) g/dL Albumin (3.5-5.0) g/dL TSH (0.465-4.680) mIU/L Critical Care Time Critical Care Time: Yes Total Critical Care Time: 35 Disposition Clinical Impression: Atrial fibrillation with RVR Disposition: ADMITTED IP TO THIS HOSP Referrals: Grupo Tinoco MD [Primary Care Provider] - 1-2 days Time of Disposition: 14:12
--- NOTE | 2019-03-29 13:07 | XR ---
EXAMINATION TYPE: XR chest 2V DATE OF EXAM: 03/29/2019 COMPARISON: None TECHNIQUE: PA and lateral views submitted. HISTORY: Dysrhythmia FINDINGS: The lungs are clear and there is no pneumothorax, pleural effusion, or focal pneumonia. Atheroscler otic change aorta. Biapical pleural thickening. Chronic rib deformity seen. Degenerative change of th e spine. Coarsened interstitium. Heart mildly enlarged. IMPRESSION: 1. Mild cardiomegaly correlate for chronic interstitial lung disease. No definite acute infiltrate..
[2019-03-29 13:12] LABS: Basophils % (A) 1 %; Eosinophils # (A) 0.1 k/uL (0-0.7); Eosinophils % (A) 2 %; HCT 40.3 % (34.0-46.0); HGB 13.4 gm/dL (11.4-16.0); Lymphocytes # (A) 1.1 k/uL (1.0-4.8); Lymphocytes % (A) 16 %; MCH 32.1 pg (25.0-35.0); MCHC 33.3 g/dL (31.0-37.0); MCV 96.3 fL (80.0-100.0); Mean Platelet Volume 7.5; Monocytes # (A) 0.4 k/uL (0-1.0); Monocytes % (A) 5 %; Neutrophils # (A) 5.2 k/uL (1.3-7.7); Neutrophils % (A) 72 %; Platelet Count 242 k/uL (150-450); RBC 4.18 m/uL (3.80-5.40); RDW 13.1 % (11.5-15.5); WBC 7.2 k/uL (3.8-10.6)
[2019-03-29] MEDS ORDERED: DILTIAZEM 125 MG in SODIUM CHLORIDE 0.9% 100 ML IV SCH (13:15)
[2019-03-29 13:17] LABS: Albumin 4.3 g/dL (3.5-5.0); Calcium 10.5 mg/dL (8.4-10.2); Magnesium 1.8 mg/dL (1.6-2.3); Potassium 4.3 mmol/L (3.5-5.1); Total Bilirubin 0.5 mg/dL (0.2-1.3); Total Protein 7.3 g/dL (6.3-8.2)
[2019-03-29 13:18] LABS: INR 0.9 (<1.2); Partial Thromboplastin Time 22.6 sec (22.0-30.0); Prothrombin Time 9.9 sec (9.0-12.0)
[2019-03-29] MEDS ORDERED: NITROGLYCERIN SL TABS 0.4 MG TAB SUBLINGUAL PRN (14:13)
[2019-03-29] MEDS ORDERED: ASPIRIN-ACET-CAFF 250-250-65MG 1 EACH TAB PO SCH (18:30)
[2019-03-29] MEDS ORDERED: EPA PO SCH (21:00)
[2019-03-29] MEDS ORDERED: FISH OIL PO SCH (21:00)
[2019-03-29] MEDS ORDERED: DHA PO SCH (21:00)
[2019-03-29] MEDS: LOSARTAN 50 MG TAB PO SCH (21:08)
[2019-03-29] MEDS: ASPIRIN-ACET-CAFF 250-250-65MG 1 EACH TAB PO PRN (21:08)
[2019-03-29] MEDS: METOPROLOL TARTRATE 25 MG TAB PO SCH (21:08)
[2019-03-29] MEDS: ATORVASTATIN 10 MG TAB PO SCH (21:08)
[2019-03-29] MEDS: VIT A,C & E-LUTEIN-MINERALS 1 EACH TAB PO SCH (21:08)
[2019-03-30 07:18] LABS: Basophils % (A) 0 %; Eosinophils # (A) 0.2 k/uL (0-0.7); Eosinophils % (A) 5 %; HCT 33.8 % (34.0-46.0); Lymphocytes # (A) 1.3 k/uL (1.0-4.8); Lymphocytes % (A) 25 %; MCH 31.6 pg (25.0-35.0); MCHC 32.5 g/dL (31.0-37.0); MCV 97.5 fL (80.0-100.0); Mean Platelet Volume 7.4; Monocytes # (A) 0.3 k/uL (0-1.0); Monocytes % (A) 5 %; Neutrophils # (A) 3.1 k/uL (1.3-7.7); Neutrophils % (A) 61 %; Platelet Count 212 k/uL (150-450); RBC 3.46 m/uL (3.80-5.40); RDW 12.7 % (11.5-15.5); WBC 5.1 k/uL (3.8-10.6)
[2019-03-30 07:43] LABS: Albumin 3.3 g/dL (3.5-5.0); Calcium 8.9 mg/dL (8.4-10.2); Total Bilirubin 0.4 mg/dL (0.2-1.3); Total Protein 5.8 g/dL (6.3-8.2)
[2019-03-30] MEDS ORDERED: CHLORTHALIDONE 25 MG TAB PO SCH (09:00)
[2019-03-30] MEDS ORDERED: ASPIRIN 325 MG TAB PO SCH (09:00)
[2019-03-30] MEDS: METOPROLOL TARTRATE 25 MG TAB PO SCH ×2 (09:19→20:48)
[2019-03-30] MEDS: CITALOPRAM HYDROBROMIDE 20 MG TAB PO SCH (09:19)
[2019-03-30] MEDS: MULTIVITAMINS, THERA 1 EACH TAB PO SCH (09:20)
[2019-03-30] MEDS: VIT A,C & E-LUTEIN-MINERALS 1 EACH TAB PO SCH ×2 (09:20→20:50)
[2019-03-30] MEDS: LORATADINE 10 MG TAB PO SCH (09:20)
[2019-03-30] MEDS: CALCIUM CARB-VIT D 500MG-200UN 1 EACH TAB PO SCH (09:20)
[2019-03-30] MEDS: FERROUS SULFATE 325 MG TAB PO SCH (09:20)
--- NOTE | 2019-03-30 10:45 | P.CRDCN ---
History of Present Illness Consult date: 03/30/19 Requesting physician: Hayley Powell Reason for Consult (text): atrial fibrillation with RVR Chief complaint: dizziness, low b/p History of present illness: This pleasant 83-year-old female patient with history of hypertension and hyperlipidemia. Presented to the emergency department with complaints of dizziness, low blood pressure, high heart rate and some chest heaviness. EKG on admission showed atrial fibrillation with rapid ventricular response, heart rate 118 bpm but was as high as 140 at home. He was initiated on IV heparin and IV Cardizem. She is subsequently converted to sinus rhythm. She's been started on metoprolol titrate 25 mg by mouth twice a day. Chest x-ray on admission showed mild cardiomegaly correlate for chronic interstitial lung disease, no acute inf iltrate. Laboratory values on admission showed hemoglobin of 13.4, sodium 134, potassium 4.3, BUN 30, creatinine 0.89 and troponins have been negative 3. TSH is normal. Labs this morning showed hemoglobin of 11.0 with hemoglobin in June noted at 10. Her vital signs are stable and she is maintaining sinus rhythm at this time. She has no further complaints of chest discomfort or dizziness. 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, ciliac's History of Any Multi-Drug Resistant Organisms: None Reported Past Surgical History: Joint Replacement, Orthopedic Surgery Additional Past Surgical History / Comment(s): lt knee replacement, lt femur fx repair with hardware, hip replacement Past Anesthesia/Blood Transfusion Reactions: Previous Problems w/ Anesthesia, Motion Sickness Additional Past Anesthesia/Blood Transfusion Reaction / Comment(s): hard time wa leena from anesthesia Past Psychological History: Anxiety Smoking Status: Former smoker Past Alcohol Use History: Occasional Past Drug Use History: None Reported - Past Family History Mother History Unknown: Yes Family Medical History: Neurologic Disorder Additional Family Medical History / Comment(s): myasthenia gravis Sister(s) History Unknown: Yes Family Medical History: Diabetes Mellitus Additional Family Medical History / Comment(s): phlebitis Father Family Medical History: Congestive Heart Failure (CHF) Brother(s) Family Medical History: Cancer Daughter(s) Family Medical History: Osteoarthritis (OA) Son(s) Family Medical History: Unable to Obtain Medications and Allergies Home Medications Medication Instructions Recorded Confirmed Type Atorvastatin [Lipitor] 10 mg PO HS 07/10/18 03/29/19 History Calcium Carbonate/Vitamin D3 1 tab PO DAILY 07/10/18 03/29/19 History [Calcium 500-Vit D3 200 Tablet] Citalopram Hydrobromide [CeleXA] 20 mg PO DAILY 07/10/18 03/29/19 History Loratadine [Claritin] 10 mg PO DAILY 07/10/18 03/29/19 History Losartan [Cozaar] 100 mg PO HS 07/10/18 03/29/19 History Multivitamins, Thera [Multivitamin 1 tab PO DAILY 07/10/18 03/29/19 History (formulary)] Vit C/E/Zn/Coppr/Lutein/Zeaxan 1 cap PO BID 07/10/18 03/29/19 History [Preservision Areds 2 Softgel] Ferrous Sulfate [Feosol] 325 mg PO DAILY #30 tab 07/18/18 03/29/19 Rx [id number] 1 tab PO Q8H 03/29/19 03/29/19 History [Excedrin] Chlorthalidone 25 mg PO DAILY 03/29/19 03/29/19 History Fish Oil/Dha/Epa [Fish Oil 1,200 2 cap PO BID 03/29/19 03/29/19 History mg Fish Oil] Ibuprofen [Motrin Ib] 600 mg PO Q8H 03/29/19 03/29/19 History Allergies Allergy/AdvReac Type Severity Reaction Status Date / Time gluten Allergy Nausea & Verified 03/29/19 12:18 Vomiting & Diarrhea Physical Exam Vitals: Vital Signs Temp Pulse Pulse Resp BP BP Pulse Ox 03/30/19 09:18 97.7 F 67 17 141/66 100 03/30/19 08:00 67 17 03/30/19 03:57 97.9 F 58 L 18 131/50 99 03/30/19 03:52 58 L 18 03/30/19 00:00 97.7 F 53 L 18 116/51 100 03/29/19 20:00 98.1 F 65 18 131/63 99 03/29/19 17:18 100 03/29/19 16:38 97.8 F 112 H 16 150/73 98 03/29/19 16:00 98.1 F 111 H 112 H 16 129/68 99 03/29/19 15:00 98.1 F 140 H 18 130/93 99 03/29/19 14:00 129 H 18 123/89 99 03/29/19 12:40 120 H 18 164/91 99 03/29/19 12:38 120 H 03/29/19 12:15 98.2 F 128 H 18 130/80 100 Intake and Output 03/29/19 03/30/19 03/30/19 22:59 06:59 14:59 Intake Total 860 46.75 146.812 Output Total 600 Balance 860 46.75 -453.188 Intake: IV 20 10 Invasive Line 1 20 10 Intake, IV Titration 46.75 136.812 Amount Diltiazem 125 mg In 46.75 Sodium Chloride 0.9% 100 ml @ 5 MG/HR 5 mls/hr IV .Q24H [facility] Rx#:[id number] Heparin Sod,Pork in 0.45% 136.812 NaCl 25,000 unit In 0.45 % NaCl 1 250ml.bag @ 12 UNITS/KG/HR 7.893 mls/hr IV .Q24H [facility] Rx#: [id number] Oral 840 Output: Urine 600 Other: # Voids 1 Weight 66 kg PHYSICAL EXAMINATION: HEENT: Head is atraumatic, normocephalic. Pupils equal, round. Neck is supple. There is no elevated jugular venous pressure. HEART EXAMINATION: Heart sounds regular, S1 and S2 with a soft systolic murmur. CHEST EXAMINATION: Lungs are clear to auscultation and precussion. No chest wall tenderness is noted on palpation or with deep breathing. ABDOMEN: Soft, nontender. Bowel sounds are heard. No organomegaly noted. EXTREMITIES: 2+ peripheral pulses with no evidence of peripheral edema and no calf tenderness noted. NEUROLOGIC patient is awake, alert and oriented x3. . Results 03/30/19 06:10 03/30/19 06:10 Cardiac Enzymes 03/29/19 03/29/19 03/29/19 Range/Units 12:39 12:39 18:59 AST 39 H (14-36) U/L Troponin I 0.027 0.030 (0.000-0.034) ng/mL 03/30/19 03/30/19 Range/Units 00:53 06:10 AST 35 (14-36) U/L Troponin I 0.033 (0.000-0.034) ng/mL Coagulation 03/29/19 03/29/19 03/30/19 Range/Units 12:39 20:30 06:10 PT 9.9 (9.0-12.0) sec APTT 22.6 61.9 H 60.9 H (22.0-30.0) sec Lipids 03/30/19 Range/Units 06:10 Triglycerides 51 (<150) mg/dL Cholesterol 154 (<200) mg/dL HDL Cholesterol 55 (40-60) mg/dL CBC 03/29/19 03/30/19 Range/Units 12:39 06:10 WBC 7.2 5.1 (3.8-10.6) k/uL RBC 4.18 3.46 L (3.80-5.40) m/uL Hgb 13.4 11.0 L (11.4-16.0) gm/dL Hct 40.3 33.8 L (34.0-46.0) % Plt Count 242 212 (150-450) k/uL Comprehensive Metabolic Panel 03/29/19 03/30/19 Range/Units 12:39 06:10 Sodium 134 L 133 L (137-145) mmol/L Potassium 4.3 4.0 (3.5-5.1) mmol/L Chloride 96 L 96 L (98-107) mmol/L Carbon Dioxide 27 32 H (22-30) mmol/L BUN 30 H 24 H (7-17) mg/dL Creatinine 0.89 0.83 (0.52-1.04) mg/dL Glucose 91 100 H (74-99) mg/dL Calcium 10.5 H 8.9 (8.4-10.2) mg/dL AST 39 H 35 (14-36) U/L ALT 31 32 (9-52) U/L Alkaline Phosphatase 71 52 (38-126) U/L Total Protein 7.3 5.8 L (6.3-8.2) g/dL Albumin 4.3 3.3 L (3.5-5.0) g/dL Current Medications Generic Name Dose Route Start Last Admin Trade Name Freq PRN Reason Stop Dose Admin Acetaminophen/Aspirin/Caffeine 1 each 03/29/19 18:33 03/29/19 21:08 Excedrin PO 1 each Q8H PRN Administration Headache Apixaban 5 mg 03/30/19 10:30 Eliquis PO BID [facility] Atorvastatin Calcium 10 mg 03/29/19 21:00 03/29/19 21:08 Lipitor PO 10 mg HS [facility] Administration Calcium Carbonate 1 each 03/30/19 09:00 03/30/19 09:20 Oscal 500+D PO 1 each DAILY [facility] Administration Chlorthalidone 25 mg 03/30/19 09:00 03/30/19 09:20 [place] PO 25 mg DAILY [facility] Administration Citalopram Hydrobromide 20 mg 03/30/19 09:00 03/30/19 09:19 Celexa PO 20 mg DAILY [facility] Administration Ferrous Sulfate 325 mg 03/30/19 09:00 03/30/19 09:20 Feosol PO 325 mg DAILY [facility] Administration Loratadine 10 mg 03/30/19 09:00 03/30/19 09:20 Claritin PO 10 mg DAILY [facility] Administration Losartan Potassium 100 mg 03/29/19 21:00 03/29/19 21:08 Cozaar PO 100 mg HS [facility] Administration Metoprolol Tartrate 25 mg 03/29/19 21:00 03/30/19 09:19 Lopressor PO 25 mg BID [facility] Administration Multivitamins 1 each 03/30/19 12:00 03/30/19 09:20 Theragran PO 1 each DAILY@1200 [facility] Administration Multivitamins/Minerals 1 each 03/29/19 21:00 03/30/19 09:20 Ivite PO 1 each BID [facility] Administration Nitroglycerin 0.4 mg 03/29/19 14:13 Nitrostat SUBLINGUAL Q5M PRN Chest Pain Intake and Output 03/29/19 03/30/19 03/30/19 22:59 06:59 14:59 Intake Total 860 46.75 146.812 Output Total 600 Balance 860 46.75 -453.188 Intake: IV 20 10 Invasive Line 1 20 10 Intake, IV Titration 46.75 136.812 Amount Diltiazem 125 mg In 46.75 Sodium Chloride 0.9% 100 ml @ 5 MG/HR 5 mls/hr IV .Q24H [facility] Rx#:[id number] Heparin Sod,Pork in 0.45% 136.812 NaCl 25,000 unit In 0.45 % NaCl 1 250ml.bag @ 12 UNITS/KG/HR 7.893 mls/hr IV .Q24H [facility] Rx#: [id number] Oral 840 Output: Urine 600 Other: # Voids 1 Weight 66 kg 03/30/19 06:10 03/30/19 06:10 EKG Interpretations (text) Atrial fibrillation with rapid ventricular response Assessment and Plan Assessment: #1 new onset paroxysmal atrial fibrillation with rapid ventricular response, currently maintaining sinus rhythm #2 hypertension #3 hyperlipidemia Plan: From cardiology's perspective, we will continue metoprolol 25 mg by mouth twice a day. We will discontinue heparin drip and start the patient on oral anticoagulation with Eliquis 5 mg by mouth twice a day. We'll obtain a 2-D echo with Doppler to assess LV systolic function. May consider outpatient workup to rule out underlying ischemia. Further recommendations to follow. ASSOCIATE FINANCIAL ANALYST note has been reviewed, I agree with a documented findings and plan of care. Patient was seen and examined.
[2019-03-30] MEDS: ASPIRIN-ACET-CAFF 250-250-65MG 1 EACH TAB PO PRN (10:57)
[2019-03-30] MEDS: APIXABAN 5 MG TAB PO SCH ×2 (10:58→20:53)
[2019-03-30 12:00] VITALS: RESP 16
--- NOTE | 2019-03-30 16:16 | P.HPIM ---
History of Present Illness H&P Date: 03/30/19 83 years old female patient of Dr. Tinoco with past medical history of hypertension hyperlipidemia basilar cell carcinoma presents in with the complaints of dizziness low blood pressure and tachycardia. Patient has not felt like this before and and notices her heart rate is well greater than 120. She denied any chest pain or shortness of breath, previous episodes of this nature.on evaluation in the ER patient was started on IV heparin and Cardizem. On evaluation in the ER patient had a temp of 97.7heartrate was 120 blood pressure 164/91 EKG suggests A. fib with RVR. Chest x-ray was done with no acute abnormality. Labs suggested a sodium 133 potassium of 3.2 creatinine 0.83 TSH 1.2 hemoglobin of 11 platelets 212. Patient was admitted for management of atrial fibrillation with RVR. Patient is currently in sinus rhythm. Review of Systems Constitutional: Denies chills, Denies fever, Denies lethargy, Denies malaise, Denies poor appetite, Denies weakness, Denies weight loss Eyes: denies decreased vision, denies diplopia, denies discharge, denies pain Ears: deny: decreased hearing Ears, nose, mouth and throat: Denies dental pain, Denies headache, Denies nasal discharge, Denies nose pain Cardiovascular: Denies chest pain, Denies decreased exercise tolerance, Denies edema, Denies high blood pressure, endorses irregular heart beat, endorsespalpitations, Denies paroxysmal nocturnal dyspnea, Denies rapid heart beat, Denies shortness of breath Respiratory: Denies congestion, Denies cough, Denies cough with sputum, Denies dyspnea, Denies home oxygen, Denies wheezing Gastrointestinal: Denies abdominal pain, Denies change in bowel habits, Denies coffee ground emesis, Denies early satiety, Denies excessive gas, Denies heartburn, Denies hematemesis, Denies hematochezia, Denies loss of appetite, Denies nausea, Denies vomiting Genitourinary: Denies dysuria, Denies flank pain, Denies kidney stones, Denies menorrhagia, Denies urgency, Denies urinary frequency Musculoskeletal: Denies gait dysfunction, Denies limitation of motion, Denies morning stiffness, Denies muscle cramps Integumentary: Denies rash, Denies wounds, Denies brittle nails, Denies change in hair/nails, Denies darkening of skin Neurological: Denies balance difficulties, Denies change in speech, Denies double vision, Denies gait dysfunction, Denies loss of vision, Denies motor disturbance, Denies numbness, Denies paralysis, Denies paresthesias, Denies seizures Psychiatric: Denies anxiety, Denies depression Endocrine: Denies excessive sweating, Denies excessive thirst, Denies high blood sugars, Denies palpitations Hematologic/Lymphatic: Denies easy bruising, Denies lymphadenopathy 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, ciliac's History of Any Multi-Drug Resistant Organisms: None Reported Past Surgical History: Joint Replacement, Orthopedic Surgery Additional Past Surgical History / Comment(s): lt knee replacement, lt femur fx repair with hardware, hip replacement Past Anesthesia/Blood Transfusion Reactions: Previous Problems w/ Anesthesia, Motion Sickness Additional Past Anesthesia/Blood Transfusion Reaction / Comment(s): hard time waking from anesthesia Past Psychological History: Anxiety Smoking Status: Former smoker Past Alcohol Use History: Occasional Past Drug Use History: None Reported - Past Family History Mother History Unknown: Yes Family Medical History: Neurologic Disorder Additional Family Medical History / Comment(s): myasthenia gravis Sister(s) History Unknown: Yes Family Medical History: Diabetes Mellitus Additional Family Medical History / Comment(s): phlebitis Father Family Medical History: Congestive Heart Failure (CHF) Brother(s) Family Medical History: Cancer Daughter(s) Family Medical History: Osteoarthritis (OA) Son(s) Family Medical History: Unable to Obtain Medications and Allergies Home Medications Medication Instructions Recorded Confirmed Type Atorvastatin [Lipitor] 10 mg PO HS 07/10/18 03/29/19 History Calcium Carbonate/Vitamin D3 1 tab PO DAILY 07/10/18 03/29/19 History [Calcium 500-Vit D3 200 Tablet] Citalopram Hydrobromide [CeleXA] 20 mg PO DAILY 07/10/18 03/29/19 History Loratadine [Claritin] 10 mg PO DAILY 07/10/18 03/29/19 History Losartan [Cozaar] 100 mg PO HS 07/10/18 03/29/19 History Multivitamins, Thera [Multivitamin 1 tab PO DAILY 07/10/18 03/29/19 History (formulary)] Vit C/E/Zn/Coppr/Lutein/Zeaxan 1 cap PO BID 07/10/18 03/29/19 History [Preservision Areds 2 Softgel] Ferrous Sulfate [Feosol] 325 mg PO DAILY #30 tab 07/18/18 03/29/19 Rx [id number] 1 tab PO Q8H 03/29/19 03/29/19 History [Excedrin] Chlorthalidone 25 mg PO DAILY 03/29/19 03/29/19 History Fish Oil/Dha/Epa [Fish Oil 1,200 2 cap PO BID 03/29/19 03/29/19 History mg Fish Oil] Ibuprofen [Motrin Ib] 600 mg PO Q8H 03/29/19 03/29/19 History Allergies Allergy/AdvReac Type Severity Reaction Status Date / Time gluten Allergy Nausea & Verified 03/29/19 12:18 Vomiting & Diarrhea Physical Exam Vitals: Vital Signs Temp Pulse Pulse Resp BP BP Pulse Ox 03/30/19 12:00 57 L 16 03/30/19 11:58 98.2 F 57 L 16 134/57 99 03/30/19 09:18 97.7 F 67 17 141/66 100 03/30/19 08:00 67 17 03/30/19 03:57 97.9 F 58 L 18 131/50 99 03/30/19 03:52 58 L 18 03/30/19 00:00 97.7 F 53 L 18 116/51 100 03/29/19 20:00 98.1 F 65 18 131/63 99 03/29/19 17:18 100 03/29/19 16:38 97.8 F 112 H 16 150/73 98 03/29/19 16:00 98.1 F 111 H 112 H 16 129/68 99 03/29/19 15:00 98.1 F 140 H 18 130/93 99 03/29/19 14:00 129 H 18 123/89 99 03/29/19 12:40 120 H 18 164/91 99 03/29/19 12:38 120 H Intake and Output 03/29/19 03/30/19 03/30/19 22:59 06:59 14:59 Intake Total 860 46.75 456.812 Output Total 600 Balance 860 46.75 -143.188 Intake: IV 20 20 Invasive Line 1 20 20 Intake, IV Titration 46.75 136.812 Amount Diltiazem 125 mg In 46.75 Sodium Chloride 0.9% 100 ml @ 5 MG/HR 5 mls/hr IV .Q24H [facility] Rx#:[id number] Heparin Sod,Pork in 0.45% 136.812 NaCl 25,000 unit In 0.45 % NaCl 1 250ml.bag @ 12 UNITS/KG/HR 7.893 mls/hr IV .Q24H [facility] Rx#: [id number] Oral 840 300 Output: Urine 600 Other: # Voids 1 Weight 66 kg - Constitutional General appearance: cooperative, no acute distress, obese - EENT Eyes: anicteric sclerae, PERRLA, normal appearance ENT: hearing grossly normal - Neck Neck: no lymphadenopathy, normal ROM, no other, no rigidity, no stridor, no thyromegaly - Respiratory Respiratory: bilateral: CTA, negative: diminished, dullness, rales, rhonchi - Cardiovascular Rhythm: regular Heart sounds: normal: S1, S2 Abnormal Heart Sounds: no systolic murmur, no diastolic murmur, no rub, no S3 Gallop, no S4 Gallop, no click, no other - Gastrointestinal General gastrointestinal: normal bowel sounds, soft - Integumentary Integumentary: no rash - Neurologic Neurologic: CNII-XII intact - Musculoskeletal Musculoskeletal: gait normal, strength equal bilaterally - Psychiatric Psychiatric: A&O x's 3, appropriate affect Results CBC & Chem 7: 03/30/19 06:10 03/30/19 06:10 Labs: Abnormal Lab Results - Last 24 Hours (Table) 03/29/19 03/29/19 03/30/19 Range/Units 12:39 20:30 06:10 RBC (3.80-5.40) m/uL Hgb (11.4-16.0) gm/dL Hct (34.0-46.0) % APTT 61.9 H (22.0-30.0) sec Sodium 134 L 133 L (137-145) mmol/L Chloride 96 L 96 L (98-107) mmol/L Carbon Dioxide 32 H (22-30) mmol/L BUN 30 H 24 H (7-17) mg/dL Glucose 100 H (74-99) mg/dL Calcium 10.5 H (8.4-10.2) mg/dL AST 39 H (14-36) U/L Total Protein 5.8 L (6.3-8.2) g/dL Albumin 3.3 L (3.5-5.0) g/dL 03/30/19 03/30/19 Range/Units 06:10 06:10 RBC 3.46 L (3.80-5.40) m/uL Hgb 11.0 L (11.4-16.0) gm/dL Hct 33.8 L (34.0-46.0) % APTT 60.9 H (22.0-30.0) sec Sodium (137-145) mmol/L Chloride (98-107) mmol/L Carbon Dioxide (22-30) mmol/L BUN (7-17) mg/dL Glucose (74-99) mg/dL Calcium (8.4-10.2) mg/dL AST (14-36) U/L Total Protein (6.3-8.2) g/dL Albumin (3.5-5.0) g/dL Thrombosis Risk Factor Assmnt - DVT/VTE Prophylaxis DVT/VTE Prophylaxis: Pharmacologic Prophylaxis ordered - Choose All That Apply Any of the Below Risk Factors Present?: No Other Risk Factors: Yes Each Risk Factor Represents 3 Points: Age 75 years or older Other congenital or acquired thrombophilia - If yes, enter type in comment: No Thrombosis Risk Factor Assessment Total Risk Factor Score: 3 Thrombosis Risk Factor Assessment Level: Moderate Risk Assessment and Plan Plan: #1 new onset paroxysmal atrial fibrillation with RVR. Metoprolol initiated 25 twice a day. Hold heparin drip patient initiated a normal request 5 mg twice daily echocardiogram ordered. #2Hypertension - hold chlorthalidone. Continue metoprolol and losartan #3 hyperlipidemia continue atorvastatin 10 mg by mouth at bedtime #4 anemia iron deficiency continue ferrous sulfate 325 mg by mouth daily #5 disposition likely discharge tomorrow
[2019-03-30] MEDS: LOSARTAN 50 MG TAB PO SCH (20:49)
[2019-03-30] MEDS: ATORVASTATIN 10 MG TAB PO SCH (20:53)
--- NOTE | 2019-03-31 06:32 | ECHOF ---
Referral Reason:LV fxn MEASUREMENTS -------- HEIGHT: 160.0 cm WEIGHT: 65.8 kg BP: RVIDd: 3.8 cm (< 3.3) IVSd: 1.3 cm (0.6 - 1.1) LVIDd: 3.4 cm (3.9 - 5.3) LVPWd: 1.4 cm (0.6 - 1.1) IVSs: 1.6 cm LVIDs: 2.4 cm LVPWs: 1.7 cm LAESV Index (A-L): 36.42 ml/m Ao Diam: 3.6 cm (2.0 - 3.7) AV Cusp: 2.1 cm (1.5 - 2.6) LA Diam: 4.7 cm (2.7 - 3.8) MV EXCURSION: 17.007 mm (> 18.000) MV EF SLOPE: 77 mm/s (70 - 150) EPSS: 0.9 cm MV E Star: 0.96 m/s MV DecT: 186 ms MV A Star: 0.78 m/s MV E/A Ratio: 1.24 AR PHT: 502 ms RAP: 5.00 mmHg RVSP: 42.07 mmHg FINDINGS -------- Sinus rhythm. This was a technically adequate study. There is mild concentric left ventricular hypertrophy. There is normal global left ventricular cont ractility. Overall left ventricular systolic function is normal with, an EF between 55 - 60 %. Mi tral Doppler inflow pattern suggests diastolic filling abnormality 18.11. The right ventricle is mild to moderately enlarged. LA is moderately dilated 34-39 ml/m2 The right atrial size is normal. Interatrial and interventricular septum intact. There is moderate aortic valve sclerosis. There is [id number]-[id number] aortic regurgitation. There i s no evidence of aortic stenosis. Mild mitral annular calcification present. Moderate mitral regurgitation is present. Moderate tricuspid regurgitation present. There is mild to moderate pulmonary hypertension. The r ight ventricular systolic pressure, as measured by Doppler, is 42.07mmHg. Trace/mild (physiologic) pulmonic regurgitation. The aortic root size is normal. The inferior vena cava is mildly dilated. There is no pericardial effusion. CONCLUSIONS -------- 1. Sinus rhythm. 2. This was a technically adequate study. 3. There is mild concentric left ventricular hypertrophy. 4. There is normal global left ventricular contractility. 5. Overall left ventricular systolic function is normal with, an EF between 55 - 60 %. 6. Mitral Doppler inflow pattern suggest diastolic filling abnormality 18.11. 7. The right ventricle is mild to moderately enlarged. 8. LA is moderately dilated 34-39 ml/m2 9. There is moderate aortic valve sclerosis. 10. There is [id number] aortic regurgitation. 11. There is no evidence of aortic stenosis. 12. Mild mitral annular calcification present. 13. Moderate mitral regurgitation is present. 14. Moderate tricuspid regurgitation present. 15. There is mild to moderate pulmonary hypertension. 16. Trace/mild (physiologic) pulmonic regurgitation. 17. The aortic root size is normal. 18. The inferior vena cava is mildly dilated. 19. There is no pericardial effusion. SENIOR VALIDATION ENGINEER: Karo Shin RDCS
[2019-03-31] MEDS: VIT A,C & E-LUTEIN-MINERALS 1 EACH TAB PO SCH (07:55)
[2019-03-31] MEDS: LORATADINE 10 MG TAB PO SCH (07:55)
[2019-03-31] MEDS: CITALOPRAM HYDROBROMIDE 20 MG TAB PO SCH (07:56)
[2019-03-31] MEDS: FERROUS SULFATE 325 MG TAB PO SCH (07:56)
[2019-03-31] MEDS: METOPROLOL TARTRATE 25 MG TAB PO SCH (07:56)
[2019-03-31] MEDS: CALCIUM CARB-VIT D 500MG-200UN 1 EACH TAB PO SCH (07:56)
[2019-03-31] MEDS: MULTIVITAMINS, THERA 1 EACH TAB PO SCH (07:56)
[2019-03-31] MEDS: APIXABAN 5 MG TAB PO SCH (07:56)
[2019-03-31 08:55] LABS: Basophils % (A) 0 %; Eosinophils # (A) 0.2 k/uL (0-0.7); Eosinophils % (A) 4 %; HCT 35.9 % (34.0-46.0); HGB 11.5 gm/dL (11.4-16.0); Lymphocytes # (A) 0.6 k/uL (1.0-4.8); Lymphocytes % (A) 17 %; MCH 31.5 pg (25.0-35.0); MCHC 31.9 g/dL (31.0-37.0); MCV 98.7 fL (80.0-100.0); Mean Platelet Volume 6.8; Monocytes # (A) 0.2 k/uL (0-1.0); Monocytes % (A) 5 %; Neutrophils # (A) 2.6 k/uL (1.3-7.7); Neutrophils % (A) 70 %; Platelet Count 232 k/uL (150-450); RBC 3.64 m/uL (3.80-5.40); RDW 12.4 % (11.5-15.5); WBC 3.7 k/uL (3.8-10.6)
[2019-03-31 08:57] LABS: Potassium 3.8 mmol/L (3.5-5.1)
--- NOTE | 2019-03-31 10:05 | PN ---
PROGRESS NOTE DATE OF SERVICE: 03/31/2019 Mrs. Beasley is an 83-year-old female who presented with symptoms of palpitation and was noted to be in atrial fibrillation with rapid ventricular response. Subsequently converted back to sinus mechanism and continued to be in sinus mechanism. She is feeling well this morning ambulating without difficulty. Denying any chest pain. No dizziness. No palpitation. No nausea. She underwent an echocardiogram that revealed a preserved ventricular size and systolic function with mild to moderate aortic, moderate mitral and moderate tricuspid regurgitation. Hemodynamically, she has been stable and continues to be on Eliquis 5 mg twice a day, Lipitor 10 mg daily, losartan 100 mg daily, metoprolol tartrate 25 mg twice a day. PHYSICAL EXAMINATION: Blood pressure running in the 160s and 150s with a heart rate in the 60s. LUNGS: Clear. HEART: Regular rate and rhythm S1, S2. No S3 with systolic murmur at the base. No diastolic murmur. No rub. ABDOMEN: Soft nontender. EXTREMITIES: No edema. LAB DATA: Lab data revealed BUN and creatinine 20 and 0.74, potassium 3.8, hemoglobin of 11.5. IMPRESSION: 1. Paroxysmal atrial fibrillation back in sinus mechanism. 2. Hypertension. 3. History of hyperlipidemia. RECOMMENDATION: From the cardiac standpoint, the patient should be able to be discharged home today. She will follow her blood pressure at home to see further adjustment as needed. She will continue on the anticoagulation and depending on her progress, further recommendations will be made. MMODL / IJN: [id number] /
[2019-03-31 12:17] VITALS: BP 178/74; TEMP 98.2
[2019-03-31 12:18] VITALS: PULSE 54
[2019-03-31] MEDS ORDERED: amLODIPine 5 MG TAB PO SCH (12:30)
--- NOTE | 2019-03-31 15:02 | P.DS ---
Providers Date of admission: 03/29/19 14:14 Attending physician: Hayley Powell Consults: 03/29/19 14:14 Consult Physician Urgent Consulting Provider: [facility] Consult Reason/Comments: A. fib with rapid ventricular response Do you want consulting provider notified?: Yes Primary care physician: Grupo Tinoco [place] [facility] Course: 83 years old female patient of Dr. Tinoco with past medical history of hypertension hyperlipidemia basilar cell carcinoma presents in with the complaints of dizziness low blood pressure and tachycardia. Patient has not felt like this before and and notices her heart rate is well greater than 120. She denied any chest pain or shortness of breath, previous episodes of this nature.on evaluation in the ER patient was started on IV heparin and Cardizem. On evaluation in the ER patient had a temp of 97.7heartrate was 120 blood pressure 164/91 EKG suggests A. fib with RVR. Chest x-ray was done with no acute abnormality. Labs suggested a sodium 133 potassium of 3.2 creatinine 0.83 TSH 1.2 hemoglobin of 11 platelets 212. Patient was admitted for management of atrial fibrillation with RVR. Patient is currently in sinus rhythm. 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 She denies any chest pain, breathing difficulty, palpitations. Heart rate was controlled on the current dose of metoprolol. Blood pressure 178/74, we'll initiate patient on Norvasc 5 mg by mouth daily Discharge diagnoses #1 new onset paroxysmal atrial fibrillation with RVR. #2Hypertension #3 hyperlipidemia #4 anemia iron deficiency CC a copy of discharge to Dr. Tinoco Plan - Discharge Summary Discharge Rx Participant: No New Discharge Prescriptions: New Apixaban [Eliquis] 5 mg PO BID #60 tab Metoprolol Tartrate [Lopressor] 25 mg PO BID #60 tab amLODIPine [Norvasc] 5 mg PO DAILY #30 tab Continue Loratadine [Claritin] 10 mg PO DAILY Calcium Carbonate/Vitamin D3 [Calcium 500-Vit D3 200 Tablet] 1 tab PO DAILY Multivitamins, Thera [Multivitamin (formulary)] 1 tab PO DAILY Losartan [Cozaar] 100 mg PO HS Citalopram Hydrobromide [CeleXA] 20 mg PO DAILY Atorvastatin [Lipitor] 10 mg PO HS Vit C/E/Zn/Coppr/Lutein/Zeaxan [Preservision Areds 2 Softgel] 1 cap PO BID Ferrous Sulfate [Feosol] 325 mg PO DAILY #30 tab Fish Oil/Dha/Epa [Fish Oil 1,200 mg Fish Oil] 2 cap PO BID Discontinued Chlorthalidone 25 mg PO DAILY [id number] [Excedrin] 1 tab PO Q8H Ibuprofen [Motrin Ib] 600 mg PO Q8H Discharge Medication List Atorvastatin [Lipitor] 10 mg PO HS 07/10/18 [History] Calcium Carbonate/Vitamin D3 [Calcium 500-Vit D3 200 Tablet] 1 tab PO DAILY 07/10/18 [History] Citalopram Hydrobromide [CeleXA] 20 mg PO DAILY 07/10/18 [History] Loratadine [Claritin] 10 mg PO DAILY 07/10/18 [History] Losartan [Cozaar] 100 mg PO HS 07/10/18 [History] Multivitamins, Thera [Multivitamin (formulary)] 1 tab PO DAILY 07/10/18 [History] Vit C/E/Zn/Coppr/Lutein/Zeaxan [Preservision Areds 2 Softgel] 1 cap PO BID 07/10/18 [History] Ferrous Sulfate [Feosol] 325 mg PO DAILY #30 tab 07/18/18 [Rx] Fish Oil/Dha/Epa [Fish Oil 1,200 mg Fish Oil] 2 cap PO BID 03/29/19 [History] Apixaban [Eliquis] 5 mg PO BID #60 tab 03/31/19 [Rx] Metoprolol Tartrate [Lopressor] 25 mg PO BID #60 tab 03/31/19 [Rx] amLODIPine [Norvasc] 5 mg PO DAILY #30 tab 03/31/19 [Rx] Follow up Appointment(s)/Referral(s): Grupo Tinoco MD [Primary Care Provider] - 1-2 days Activity/Diet/Wound Care/Special Instructions: avoid aspirin, aleve, ibuprofen as patient is on blood thinner Discharge Disposition: HOME SELF-CARE
== END 2019-03-31 17:20 | disposition home or self-care (01) | DRG 310 ==
LOC: EC 12:02 → 3SCARD 14:14
PROVIDERS: ADMIT Family Medicine; ATTEND Family Medicine
DX: I48.0 Paroxysmal atrial fibrillation (principal); D50.9 Iron deficiency anemia, unspecified; E78.5 Hyperlipidemia, unspecified; F41.9 Anxiety disorder, unspecified; I08.3 Combined rheumatic disorders of mitral, aortic and tricuspid valves; I10 Essential (primary) hypertension; Z79.899 Other long term (current) drug therapy; Z82.49 Family history of ischemic heart disease and other diseases of the circulatory system; Z83.3 Family history of diabetes mellitus; Z85.828 Personal history of other malignant neoplasm of skin; Z87.891 Personal history of nicotine dependence; Z96.652 Presence of left artificial knee joint; Z96.642 Presence of left artificial hip joint; M19.90 Unspecified osteoarthritis, unspecified site; Z79.82 Long term (current) use of aspirin; Z82.61 Family history of arthritis; Z80.9 Family history of malignant neoplasm, unspecified; I95.9 Hypotension, unspecified
CPT/HCPCS: 36415; 71046; 80048; 80053; 80061; 83735; 84443; 84484; 85025; 85610; 85730; 93005; 93306; 96365; 96366; 96368; 96376; 99291

== ENCOUNTER → 2019-07-31 | Outpatient (CLI) | payer MEDICARE ==
--- NOTE | 2019-07-31 10:27 | MR ---
EXAMINATION TYPE: MR lumbar spine wo con DATE OF EXAM: 07/31/2019 COMPARISON: None HISTORY: Low back pain, rt sided TECHNIQUE: Multiplanar, multisequence images of the lumbar spine were acquired. L1-L2: Posterior broad-based disc bulge causes minimal anterior mass effect on the thecal sac. No sig nificant central stenosis or foraminal contrast. L2-L3: Normal disc appearance without desiccation. No herniation, protrusion or disc bulging. No ca nal stenosis is present. Foramina are patent bilaterally. L3-L4: Facet arthropathy with hypertrophy of ligamentum flavum causes posterior lateral mass effect o n the thecal sac. Broad-based posterior disc bulge causes slight anterior mass effect on the thecal s ac. There is no significant central stenosis or foraminal encroachment. L4-L5: Posterior broad-based disc bulge causes mild anterior mass effect on the thecal sac. Hypertrop hic change of the ligamentum flavum causes posterior lateral mass effect on the thecal sac. No signif icant central stenosis. Circumference of disc bulge extends towards the neural foramina without signi ficant encroachment. L5-S1: Facet arthropathy with hypertrophy ligamentum flavum noted. No significant spinal stenosis or sizable disc herniation, there is intimal posterior disc bulge causing slight anterior mass effect on the thecal sac. Circumferential extension endplate disc complex encroaches somewhat on the neural fo ramina. Lumbar segments are intact. No paraspinal masses are identified. Conus medullaris has a normal appe arance. Lumbar vertebral bodies show preserved height and alignment. Mild multilevel spondylosis with minimal endplate discogenic marrow signal changes. Disc spaces show preserved height, loss of signal suggesting disc desiccation. There is a mild spinal curvature present. Bilateral T2 hyperintensities within the kidneys likely represent cysts, the largest is at the lower pole the right kidney measuri ng approximately 3.8 cm. Tarlov cyst noted over the sacrum. IMPRESSION: Degenerative disc disease, facet arthropathy. Mild spinal curvature.
== END | disposition home or self-care (01) ==
LOC: RADMRIMAIN 08:41
PROVIDERS: ATTEND Orthopaedic Surgery
DX: M51.36 Other intervertebral disc degeneration, lumbar region (principal); M46.96 Unspecified inflammatory spondylopathy, lumbar region; M43.8X6 Other specified deforming dorsopathies, lumbar region
CPT/HCPCS: 72148

== ENCOUNTER → 2019-08-20 | Outpatient (CLI) | payer MEDICARE ==
[2019-08-20 11:28] VITALS: BP 150/60; PULSE 63; RESP 18
--- NOTE | 2019-08-20 15:32 | P.PAINCN ---
History of Present Illness - Reason for Consult Consult date: 08/20/19 - History of Present Illness This is an initial consultation for a pleasant 84 years old female with a chronic history of severe low back pain with radiation to the right buttock and right hip area, patient had this pain for more than one year, and is constant and increased with any activity and relieved with complete rest, she denies any motor or sensory deficit she denies any change in the bowel movement or urination, patient had the injection done by orthopedic surgeon Dr. Moran and she gets minimal relief for a few days, she denies any numbness or tingling sensation in the lower extremities she denie any radicular symptoms Past Medical History Past Medical History: Cancer, Eye Disorder, Hyperlipidemia, Hypertension, Osteoarthritis (OA) Additional Past Medical History / Comment(s): 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,. CELIAC DISEASE. MACULAR DEG. BILAT EYES History of Any Multi-Drug Resistant Organisms: None Reported Past Surgical History: Joint Replacement, Orthopedic Surgery Additional Past Surgical History / Comment(s): lt knee replacement, lt femur fx repair with hardware, RT hip replacement. BILAT CATARACTS, BILAT EYELID SX. COLONOSCOPY Past Anesthesia/Blood Transfusion Reactions: Previous Problems w/ Anesthesia, Motion Sickness Additional Past Anesthesia/Blood Transfusion Reaction / Comm: hard time waking from anesthesia Past Psychological History: Anxiety Smoking Status: Former smoker Past Alcohol Use History: Occasional Additional Past Alcohol Use History / Comment(s): QUIT SMOKING AT AGE 24 Past Drug Use History: None Reported - Past Family History Mother History Unknown: Yes Family Medical History: Neurologic Disorder Additional Family Medical History / Comment(s): myasthenia gravis Sister(s) History Unknown: Yes Family Medical History: Diabetes Mellitus Additional Family Medical History / Comment(s): phlebitis Father Family Medical History: Congestive Heart Failure (CHF) Brother(s) Family Medical History: Cancer Daughter(s) Family Medical History: Osteoarthritis (OA) Son(s) Family Medical History: Unable to Obtain Medications and Allergies Home Medications Medication Instructions Recorded Confirmed Type Atorvastatin [Lipitor] 10 mg PO HS 07/10/18 08/20/19 History Calcium Carbonate/Vitamin D3 1 tab PO DAILY 07/10/18 08/20/19 History [Calcium 500-Vit D3 200 Tablet] Citalopram Hydrobromide [CeleXA] 20 mg PO DAILY 07/10/18 08/20/19 History Loratadine [Claritin] 10 mg PO DAILY 07/10/18 08/20/19 History Losartan [Cozaar] 100 mg PO HS 07/10/18 08/20/19 History Multivitamins, Thera [Multivitamin 1 tab PO DAILY 07/10/18 08/20/19 History (formulary)] Vit C/E/Zn/Coppr/Lutein/Zeaxan 1 cap PO BID 07/10/18 08/20/19 History [Preservision Areds 2 Softgel] Ferrous Sulfate [Feosol] 325 mg PO DAILY #30 tab 07/18/18 08/20/19 Rx Apixaban [Eliquis] 5 mg PO BID #60 tab 03/31/19 08/20/19 Rx Metoprolol Tartrate [Lopressor] 25 mg PO BID #60 tab 03/31/19 08/20/19 Rx amLODIPine [Norvasc] 5 mg PO DAILY #30 tab 03/31/19 08/20/19 Rx Allergies Allergy/AdvReac Type Severity Reaction Status Date / Time gluten Allergy Nausea & Verified 08/20/19 11:19 Vomiting & Diarrhea Physical Exam Vitals: Vital Signs Pulse Resp BP 08/20/19 11:20 63 18 150/60 REVIEW OF ORGAN SYSTEMS: CONSTITUTIONAL: No fevers or chills. No recent weight loss. EYES: denies troubles with vision. HEENT: No difficulties with hearing. No nosebleeds. No difficulty swallowing. RESPIRATORY: Denies any troubles with breathing or dyspnea on exertion. CARDIOVASCULAR: Denies any chest pain, no recent heart attacks. She had A. fib and she is currently on liquids GASTROINTESTINAL: Denies fatty food intolerance. Has change in bowel habits and gas bloat. GENITOURINARY: Denies any blood in urine. Has increased urinary frequency. NEUROLOGICAL:no numbness and tingling along the distal extremities. No seizure disorders or headaches. MUSCULOSKELETAL: Has back pain. SKIN:no skin cancer. No rash. PSYCHIATRIC: Denies current depression or suicidal thoughts. ENDOCRINE: Denies current thyroid disorders. Denies any blood sugar glucose intolerance. HEME/LYMPHATIC: Denies any lumps and bumps around the neck. History of deep venous thrombosis. ALLERGY/IMMUNOLOGY: No immunoglobulin therapy. No immune deficiencies. BREAST: Denies current breast lumps, pain or nipple discharge. Physical Examinations : Constitutiona : Cooperative , not in acute distress . HEENT : nech : supple , no Lymphadenopathy , normal thyroid size . : eyes no ptosis , no icterus, no photophobia . : ENT normal of hearing , normal oropharynx , no Thrush . Respiratory : Chest clear to auscultations Bilaterally , no wheezing , no Rhonchi . Cardiovascula : irregular rate and rhythem , S1 , S2 , no S3 , no S4. Gastrointestina : abdomen soft no tenderness , bowel sounds , no organomegally . Genitourinary : Defferred . neurologic : Cranial nerve II to XII intact , no focal neurological deffecit . psychatric : alert , oriented X 3 , appropriate affect , intact judgment and insight . Lymphatic : no Lymphadenopathy . musculoskeltal : Lumber spine moter stegnth lower extremities ,thigh and legs 5/5 Right side , 5/5 Left side deep tendon reflexes : normal Knee Jerk , normal ankle Jerk lumber facet Loading Test= positive Right , negative Left Range of motion of the lumbar spine Flexion 60 degrees, extension 30 degrees strait leg raising test = negative bilaterally Fabere test= negative bilaterally Sever tenderness over the Sacroiliac joint on the Right , negative on the Left sides Gaenslen test= positive on the right side, negative on the left side Seated flexion test= positive on the right side and negative on the left side. Severe tenderness over the right trochanteric bursa Results Comments: MRI of the lumbar spine multilevel lumbar bulging disc disease and multilevel lumbar facet arthropathy from L3 4 L4 5 and L5-S1 Assessment and Plan Plan: Assessment and plan=1-right sacroiliitis. 2-right trochanteric bursitis. 3-lumbar spondylosis with lumbar facet arthropathy. Patient could benefit from a right sacroiliac joint steroid injection and at the same time we can do right trochanteric bursa steroid injection, patient does not have to hold Eliquis before the procedure we can use a 25-gauge needle Time with Patient: Greater than 30 PQRS Measure Charge Sheet Measure #130: Documentation of Current Meds in Medical Chart: Patient's medications documented in chart Measure #226: Tobacco Use: Screen & Cessation Intervention: Pt not a tobacco user Measure #111: Pneumonia Vaccination: Pneumococcal vaccine administered or previously received Measure #47: Advance Care Plan: Advance care planning discussed & documented, pt chose/unable to give Measure #412: Opioid Treatment Agreement: No documentation of signed opioid treatment agreement Measure #408: Opioid Therapy Follow-up Evaluation: Patient had NO f/u eval minimum every 3 months during opioid therapy Measure #317: Preventitive Care & Scrn High Bld Press & F/U: Pre-hypertensive or hypertensive BP documented, pt will f/u with PCP Measure #128: Body Mass Index (BMI) Screening & Follow-up: BMI documented ABOVE normal parameters - f/u documented Measure #131: Pain Assessment & Follow-up: Pain positive & plan documented, Follow-up scheduled Measure #431: Unhealthy Alcohol Use Preventative Care & Scrn: Patient not identified as an unhealthy alcohol user PQRS Narrative: Smoking Status Former smoker Blood Pressure 150/60 Pain Intensity [Right Hip] 6 Scale Used Numeric (1 - 10) Hx Alcohol Use (MH) Yes Home Medications: Ambulatory Orders Atorvastatin [Lipitor] 10 mg PO HS 07/10/18 Calcium Carbonate/Vitamin D3 [Calcium 500-Vit D3 200 Tablet] 1 tab PO DAILY 07/10/18 Citalopram Hydrobromide [CeleXA] 20 mg PO DAILY 07/10/18 Loratadine [Claritin] 10 mg PO DAILY 07/10/18 Losartan [Cozaar] 100 mg PO HS 07/10/18 Multivitamins, Thera [Multivitamin (formulary)] 1 tab PO DAILY 07/10/18 Vit C/E/Zn/Coppr/Lutein/Zeaxan [Preservision Areds 2 Softgel] 1 cap PO BID 07/10/18 Ferrous Sulfate [Feosol] 325 mg PO DAILY #30 tab 07/18/18 Apixaban [Eliquis] 5 mg PO BID #60 tab 03/31/19 Metoprolol Tartrate [Lopressor] 25 mg PO BID #60 tab 03/31/19 amLODIPine [Norvasc] 5 mg PO DAILY #30 tab 03/31/19
== END | disposition home or self-care (01) ==
LOC: PNWHC3 11:10
PROVIDERS: ATTEND Specialist
DX: M46.1 Sacroiliitis, not elsewhere classified (principal); M47.816 Spondylosis without myelopathy or radiculopathy, lumbar region; M46.96 Unspecified inflammatory spondylopathy, lumbar region; M70.61 Trochanteric bursitis, right hip; Z79.899 Other long term (current) drug therapy; Z79.891 Long term (current) use of opiate analgesic; Z79.01 Long term (current) use of anticoagulants; Z91.018 Allergy to other foods; Z87.891 Personal history of nicotine dependence
CPT/HCPCS: 99211

== ENCOUNTER 2019-09-04 08:06 | Day surgery (SDC) | payer MEDICARE ==
[2019-09-03 08:30] VITALS: BMI 25.7
[~2019-09-04 08:06] MED LIST changes: -ACETAMINOPHEN TAB 500 MG TAB PO ONE; -DEXAMETHASONE SOD PHOSPHATE 10 MG/ML 1 ML VIAL IV ONE; +LACTATED RINGERS 1,000 ML IV SCH; -LIDOCAINE 1% 20 ML VIAL (10MG/ML) FOR IV START INTRADERMA PRN; -MELOXICAM 7.5 MG TAB PO ONE; -MIDAZOLAM 2 MG/2 ML VIAL IV PRN; -ONDANSETRON 4 MG/2 ML VIAL IVP ONE; -TRANEXAMIC ACID 1,000 MG in SODIUM CHLORIDE 0.9% 50 ML IVPB ONE; -ceFAZolin IN SWFI 2 GM/20 ML SYRINGE IVP ONE; -fentaNYL (PF) 50 MCG/ML 2 ML AMP IV PRN
[2019-09-04] MEDS ORDERED: LACTATED RINGERS 1,000 ML IV ONE (08:31)
[2019-09-04 08:32] VITALS: TEMP 97.3
[2019-09-04] MEDS ORDERED: LIDOCAINE 1% 20 ML VIAL (10MG/ML) FOR IV START INTRADERMA ONE (08:32)
--- NOTE | 2019-09-04 09:03 | P.PCN ---
Date of Procedure: 09/04/19 Procedure(s) Performed: Procedure= Right sacral iliac joints steroid injection under fluoroscopy guidance (fluoroscopy image stored on file in the radiology Department ) Right trochanteric bursa steroid injection under fluoroscopy guidance. Preoperative diagnosis= 1-right sacroiliitis 2-right trochanteric bursitis 3- lumbar facet arthropathy Postoperative diagnosis= same as preop diagnoses Complication = none Condition= stable Anesthesia= moderate sedation with intravenous Versed 1 mg. Indication for the procedure= patient complaining of low back pain , examination was positive for severe tenderness over the sacroiliac joints and patient diagnosed with sacroiliitis, right trochanter bursitis for this reason he/ she was good candidate for sacroiliac joint steroid injection. Under to the bursa steroid injectionright Description of the procedure= procedure risk and benefits discussed with the patient, including but not limited, risk of infection and bleeding, and ALLERGIC reaction to the medication and not complete pain relief and patient agreed with the preceding patient taken to the operating room, placed in prone position or standard monitors applied to the patient then after induction of anesthesia back prepped with chlorhexidine 3 times , Then under strict sterile technique, first I did the right sacroiliac joint the which was identified under fluoroscopy guidance been local infiltration of the skin and subcu interstitial with lidocaine 1% then 25-gauge Quincke Needle advanced slowly under fluoroscopy and placed in the right sacroiliac joint needle placement confirmed with AP and oblique and lateral view and after appropriate needle placement confirmed and after negative aspiration, or heme , then Ropivacaine 0.5% 3 mL, and 20 mg of Depo-Medrol mixed together and injected in the right sacroiliac joint after negative aspiration patient tolerated the procedure well without any complication. Then the right trochanter bursa identified under fluoroscopy been the area prepped with chlorhexidine 3, under fluoroscopy guidance 25-gauge spinal needle, advanced slowly under fluoroscopy and placed in the right trochanteric bursa area then after negative aspiration, bupivacaine 0.5% and 20 mg of Depo- Medrol injected after negative aspiration patient tolerated the procedure well without any complications, patient discharged home in stable condition and after the discharge criteria met
[2019-09-04] MEDS ORDERED: IV FLUID CONTINUATION 800 ML IV ONE (09:05)
[2019-09-04 09:16] VITALS: RESP 16
[2019-09-04 09:19] VITALS: BP 163/67; PULSE 61
--- NOTE | 2019-09-05 08:00 | FL ---
Fluoroscopy HISTORY: Pain 4 seconds fluoroscopy time supplied to the referring clinician. 2 intraoperative C-arm images docume nt the procedure. See dictated report from anesthesia.
== END 2019-09-04 09:40 | disposition home or self-care (01) ==
LOC: ORPAIN 08:06
PROVIDERS: ATTEND Specialist
DX: M46.1 Sacroiliitis, not elsewhere classified (principal); M70.61 Trochanteric bursitis, right hip; M46.96 Unspecified inflammatory spondylopathy, lumbar region; Y93.9 Activity, unspecified
CPT/HCPCS: 20610; J2250; J1030; G0260; 27096; 99152

== ENCOUNTER → 2020-04-08 | Outpatient (CLI) | payer MEDICARE ==
[2020-04-08 10:04] VITALS: BP 157/54; PULSE 66; RESP 16
--- NOTE | 2020-04-08 10:22 | P.PAINPG ---
Subjective Progress Note Date: 04/08/20 This is a follow-up visit for this 84 years old female with a chronic history of severe low back pain patient diagnosed with right to contact bursitis and right sacroiliitis and lumbar spondylosis with lumbar facet arthropathy, more than 6 months ago we did the right side sacroiliac joint steroid injection on the right side trochanteric bursa steroid injection, patient gets excellent pain relief and the pain relief lasted for more than 6 months, currently she is complaining of severe right-sided head pain and low back pain on the right side, is constant and increases with any activity interfered with her quality of life, she denies any motor or sensory deficit she denies any fever or night sweats and there is no change in the bowel movement or urination Objective - Vital Signs Vital signs: Vital Signs Temp Pulse 66 04/08/20 09:54 Resp 16 04/08/20 09:54 BP 157/54 04/08/20 09:54 Pulse Ox 96 04/08/20 09:54 - Exam Physical Examinations : -Constitutiona : Cooperative , not in acute distress . -HEENT : nech : supple , no Lymphadenopathy , normal thyroid size . : eyes : no ptosis , no icterus, no photophobia . - neurologic : Cranial nerve II to XII intact , no focal neurological deffecit . -psychatric : alert , oriented X 3 , appropriate affect , intact judgment and insight . -Lymphatic : no Lymphadenopathy . - musculoskeltal : Lumber spine moter stegnth lower extremities ,thigh and legs 5/5 Right side , 5/5 Left side deep tendon reflexes : normal Knee Jerk , normal ankle Jerk lumber facet Loading Test =positive Right , positive Left Range of motion of the lumbar spine Flexion 30 degrees, extension 10 degrees strait leg raising test = negative bilaterally Fabere test= negative bilaterally Sever tenderness over the Sacroiliac joint on the Right , Gaenslen test= positive right . Seated flexion test= positive right . Severe tenderness over the right trochanteric bursa MRI of the lumbar spine= multilevel lumbar degenerative disc disease and multilevel lumbar spondylosis with lumbar facet arthropathy Assessment and Plan Plan: l =1-right sacroiliitis. 2-right trochanteric bursitis. 3-lumbar spondylosis with lumbar facet arthropathy. Patient could benefit from a right sacroiliac joint steroid injection and at the same time we can do right trochanteric bursa steroid injection, patient does not have to hold Eliquis before the procedure we can use a 25-gauge needle Time with Patient: Less than 30 PQRS Measure Charge Sheet Measure #130: Documentation of Current Meds in Medical Chart: Patient's medications documented in chart Measure #226: Tobacco Use: Screen & Cessation Intervention: Pt not a tobacco user Measure #111: Pneumonia Vaccination: Pneumococcal vaccine administered or previously received Measure #47: Advance Care Plan: Advance care planning discussed & documented, pt chose/unable to give Measure #412: Opioid Treatment Agreement: No documentation of signed opioid treatment agreement Measure #408: Opioid Therapy Follow-up Evaluation: Patient had NO f/u eval minimum every 3 months during opioid therapy Measure #317: Preventitive Care & Scrn High Bld Press & F/U: Pre-hypertensive or hypertensive BP documented, pt will f/u with PCP Measure #128: Body Mass Index (BMI) Screening & Follow-up: BMI documented ABOVE normal parameters - f/u documented Measure #131: Pain Assessment & Follow-up: Pain positive & plan documented, Follow-up scheduled Measure #431: Unhealthy Alcohol Use Preventative Care & Scrn: Patient not identified as an unhealthy alcohol user PQRS Narrative: Smoking Status Former smoker Blood Pressure 157/54 Pain Intensity [Right Hip] 6 Pain Intensity [None] 0 Scale Used Numeric (1 - 10) Hx Alcohol Use (MH) Yes Home Medications: Ambulatory Orders Atorvastatin [Lipitor] 10 mg PO HS 07/10/18 Calcium Carbonate/Vitamin D3 [Calcium 500-Vit D3 200 Tablet] 1 tab PO DAILY 07/10/18 Citalopram Hydrobromide [CeleXA] 20 mg PO DAILY 07/10/18 Loratadine [Claritin] 10 mg PO DAILY 07/10/18 Losartan [Cozaar] 100 mg PO HS 07/10/18 Multivitamins, Thera [Multivitamin (formulary)] 1 tab PO DAILY 07/10/18 Vit C/E/Zn/Coppr/Lutein/Zeaxan [Preservision Areds 2 Softgel] 1 cap PO BID 07/10/18 Ferrous Sulfate [Feosol] 325 mg PO DAILY #30 tab 07/18/18 Apixaban [Eliquis] 5 mg PO BID #60 tab 03/31/19 Metoprolol Tartrate [Lopressor] 25 mg PO BID #60 tab 03/31/19 amLODIPine [Norvasc] 5 mg PO DAILY #30 tab 03/31/19 Acetaminophen Tab [Tylenol Tab] 1,000 - 1,500 mg PO DIRECTED PRN 09/03/19 Controlled Substance Measures - Controlled Substance Measures Is patient prescribed a controlled substance at discharge?: No
== END | disposition home or self-care (01) ==
LOC: PNWHC3 09:44
PROVIDERS: ATTEND Specialist
DX: M47.816 Spondylosis without myelopathy or radiculopathy, lumbar region (principal); M46.1 Sacroiliitis, not elsewhere classified; M46.96 Unspecified inflammatory spondylopathy, lumbar region; M70.61 Trochanteric bursitis, right hip; Z79.891 Long term (current) use of opiate analgesic; Z79.899 Other long term (current) drug therapy
CPT/HCPCS: 99211

== ENCOUNTER 2020-04-23 12:33 | Day surgery (SDC) | payer MEDICARE ==
[2020-04-21 09:33] VITALS: BMI 26.9
[2020-04-23] MEDS ORDERED: LACTATED RINGERS 1,000 ML IV SCH (12:38)
[2020-04-23 12:52] VITALS: TEMP 97.6
[2020-04-23] MEDS ORDERED: fentaNYL (PF) 50 MCG/ML 2 ML AMP ONE (13:35)
[2020-04-23] MEDS ORDERED: ROPIVACAINE 5MG/ML 20ML VIAL ONE (13:35)
[2020-04-23] MEDS ORDERED: MIDAZOLAM 2 MG/2 ML VIAL ONE (13:35)
[2020-04-23] MEDS ORDERED: TRIAMCINOLONE ACETONIDE 40 MG/ML 1 ML VIAL ONE (13:35)
[2020-04-23] MEDS ORDERED: IOPAMIDOL M200 10 ML VIAL ONE (13:35)
[2020-04-23] MEDS ORDERED: IV FLUID CONTINUATION 1,000 ML IV ONE (13:59)
[2020-04-23 14:01] VITALS: PULSE 60; RESP 16
[2020-04-23 14:17] VITALS: BP 161/83
--- NOTE | 2020-04-23 14:20 | P.PCN ---
Date of Procedure: 04/23/20 Procedure(s) Performed: Preoperative diagnoses: right sacroilitis, right greater trochanter bursitis Postoperative diagnoses: right sacroilitis., Right greater trochanter bursitis Procedure: right sacroiliac joint steroid injection, right greater trochanter injection under fluoroscopic guidance. Surgeon: Tamia Camacho MD Anesthesia: [2 mL of 1% lidocaine/moderate sedation with Versed and fentanyl], sedation time 13 minutes Fluoroscopy was used for the procedure and fluoroscopic images were saved to the radiology portion of the patient's chart. EBL: None Procedure indication: The patient had a history of severe chronic low back pain, diagnosed with sacroiliitis unresponsive to conservative treatment. Procedure description: The patient was seen and identified in the preoperative holding area, risks and benefits and alternative of the procedure and possible complications discussed with the patient, and patient agreed with the preceding, patient signed the consent, an IV was started, and vital signs were monitored and were stable throughout the procedure, patient was placed in the prone position on table and the lumbosacral area was prepped and draped with a sterile fashion, vital signs were closely monitored during the procedure, the fluoroscopy camera was placed in the contralateral oblique view on the right sacroiliac joint and the lower part of the joint was identified . Then the skin and subcutaneous tissue was anesthetized using 2 mL of 1% lidocaine then a 22- gauge Quincke-type spinal needle advanced slowly under fluoroscopy and placed in the posterior and inferior border of the right sacroiliac joint, placement confirmed with AP and lateral view, and after appropriate needle placement confirmed and after negative aspiration for heme, 1 mL of Isovue 200 was injected revealing intra-articular spread. Then a solution consisting of 2 ml of ropivacaine 0.5% and 40 mg of Kenalog injected after negative aspiration, no paresthesia during the injection, no resistance to injection, and the needle was removed. Then, I turned my attention to the right greater trochanter. Using fluoroscopic guidance the right greater trochanter was identified. Then, under sterile t echniquea 25-gauge needle was used for skin and subcutaneous tissue infiltration with 1% lidocaine 1 mL, then a 22-gauge Quincke-type spinal needle advanced slowly under fluoroscopy and placed in the right trochanteric bursa. needle placement confirmed with AP fluoroscopy. Then, 1 mL of Isovue 200 was injected, revealing no intravascular uptake. Then, a 5 mL of treatment solution consisting of 4 ML of ropivacaine 0.5% mixed with 40 mg of Kenalog was injected into the right greater trochanter after negative aspiration. there was no paresthesia during the injection and the needle removed and a dressing applied. patient tolerated the procedure well without any complication and will follow up with the pain clinic in a few weeks. patient discharged home in stable condition
--- NOTE | 2020-04-23 15:46 | FL ---
EXAMINATION TYPE: FL guided pain mgmt statistic DATE OF EXAM: 04/23/2020 CLINICAL HISTORY: Pain injection TECHNIQUE: Fluoroscopy. COMPARISON: None. FINDINGS: Fluoroscopic guidance was provided during procedure performed by Dr. Camacho. A total of 8 se conds of fluoroscopic time was utilized during the procedure and 3 spot images was acquired. Please s ee operative report for additional details. IMPRESSION: As Above.
== END 2020-04-23 14:36 | disposition home or self-care (01) ==
LOC: ORPAIN 12:33
PROVIDERS: ATTEND Anesthesiology
DX: G89.29 Other chronic pain (principal); M46.1 Sacroiliitis, not elsewhere classified; M70.61 Trochanteric bursitis, right hip; Z79.01 Long term (current) use of anticoagulants
CPT/HCPCS: 20610; J2250; J3301; J3010; Q9966; J2795; G0260; 27096; 99152

== ENCOUNTER → 2020-05-25 | Outpatient (CLI) | payer MEDICARE ==
[2020-05-25 09:40] VITALS: BP 146/66; PULSE 63; RESP 14
--- NOTE | 2020-05-25 09:41 | P.PAINPG ---
Subjective Progress Note Date: 05/25/20 This is a follow-up visit for this 84 years old female with a chronic history of severe low back pain she is diagnosed with right sacroiliitis right trochanteric bursitis, previously we have done a right side sacroiliac joint steroid injection of right trochanteric bursa steroid injections x2 , patient gets excellent pain relief, and the pain came back but the intensity less than before, currently she is having pain on the right side low back area radiated to the right buttock and right hip area, the pain increases with any activity it's constant, she denies any motor or sensory deficit she denies any fever or night sweats she denies any numbness or tingling sensation Objective - Exam Constitutiona : Cooperative , not in acute distress . HEENT : nech : supple , no Lymphadenopathy , normal thyroid size . : eyes no ptosis , no icterus, no photophobia . neurologic : Cranial nerve II to XII intact , no focal neurological deffecit . psychatric : alert , oriented X 3 , appropriate affect , intact judgment and insight . Lymphatic : no Lymphadenopathy . musculoskeltal : Lumber spine moter stegnth lower extremities ,thigh and legs 5/5 Right side , 5/5 Left side deep tendon reflexes : normal Knee Jerk , normal ankle Jerk lumber facet Loading Test= positive Right , negative Left Range of motion of the lumbar spine Flexion 60 degrees, extension 30 degrees strait leg raising test = negative bilaterally Fabere test= negative bilaterally Sever tenderness over the Sacroiliac joint on the Right , negative on the Left sides Gaenslen test= positive on the right side, negative on the left side Seated flexion test= positive on the right side and negative on the left side. Severe tenderness over the right trochanteric bursa Assessment and Plan Plan: Assessment and plan=1-right sacroiliitis. 2-right trochanteric bursitis. 3-lumbar spondylosis with lumbar facet arthropathy. Patient could benefit from repeat right sacroiliac joint steroid injection and at the same time we can do right trocha nteric bursa steroid injection, patient does not have to hold Eliquis before the procedure we can use a 25-gauge needle Time with Patient: Less than 30 PQRS Measure Charge Sheet Measure #130: Documentation of Current Meds in Medical Chart: Patient's medications documented in chart Measure #226: Tobacco Use: Screen & Cessation Intervention: Pt not a tobacco user Measure #111: Pneumonia Vaccination: Pneumococcal vaccine administered or previously received Measure #47: Advance Care Plan: Advance care planning discussed & documented, pt chose/unable to give Measure #412: Opioid Treatment Agreement: No documentation of signed opioid treatment agreement Measure #408: Opioid Therapy Follow-up Evaluation: Patient had NO f/u eval minimum every 3 months during opioid therapy Measure #317: Preventitive Care & Scrn High Bld Press & F/U: Pre-hypertensive or hypertensive BP documented, pt will f/u with PCP Measure #128: Body Mass Index (BMI) Screening & Follow-up: BMI documented ABOVE normal parameters - f/u documented Measure #131: Pain Assessment & Follow-up: Pain positive & plan documented, Foll ow-up scheduled Measure #431: Unhealthy Alcohol Use Preventative Care & Scrn: Patient not identified as an unhealthy alcohol user PQRS Narrative: Smoking Status Former smoker Pain Intensity [Lower Back] 4 Hx Alcohol Use (MH) Yes Home Medications: Ambulatory Orders Atorvastatin [Lipitor] 10 mg PO HS 07/10/18 Calcium Carbonate/Vitamin D3 [Calcium 500-Vit D3 200 Tablet] 1 tab PO BID 06/25 03/12 Citalopram Hydrobromide [CeleXA] 20 mg PO DAILY 07/10/18 Loratadine [Claritin] 10 mg PO DAILY 07/10/18 Losartan [Cozaar] 100 mg PO HS 07/10/18 Multivitamins, Thera [Multivitamin (formulary)] 1 tab PO DAILY 07/10/18 Vit C/E/Zn/Coppr/Lutein/Zeaxan [Preservision Areds 2 Softgel] 1 cap PO BID 07/10/18 Ferrous Sulfate [Feosol] 325 mg PO DAILY #30 tab 07/18/18 Apixaban [Eliquis] 5 mg PO BID #60 tab 03/31/19 Metoprolol Tartrate [Lopressor] 25 mg PO BID #60 tab 03/31/19 amLODIPine [Norvasc] 5 mg PO DAILY #30 tab 03/31/19 Acetaminophen Tab [Tylenol Tab] 1,000 - 1,500 mg PO Q4H PRN 09/03/19 Chlorthalidone 25 mg PO DAILY 04/23/20 Controlled Substance Measures - Controlled Substance Measures Is patient prescribed a controlled substance at discharge?: No
== END | disposition home or self-care (01) ==
LOC: PNWHC3 08:59
PROVIDERS: ATTEND Specialist
DX: G89.29 Other chronic pain (principal); M46.1 Sacroiliitis, not elsewhere classified; M70.61 Trochanteric bursitis, right hip; M47.816 Spondylosis without myelopathy or radiculopathy, lumbar region; Z87.891 Personal history of nicotine dependence; Z79.01 Long term (current) use of anticoagulants; Z79.899 Other long term (current) drug therapy
CPT/HCPCS: 99211

== ENCOUNTER 2020-06-04 08:55 | Day surgery (SDC) | payer MEDICARE ==
[2020-05-29 15:31] VITALS: BMI 26.9
[2020-06-04 09:16] VITALS: TEMP 97.9
[2020-06-04] MEDS ORDERED: ROPIVACAINE 5MG/ML 20ML VIAL ONE (09:53)
[2020-06-04] MEDS ORDERED: methylPREDNISolone ACETATE 40 MG/ML 1 ML VIAL ONE (09:53)
[2020-06-04] MEDS ORDERED: MIDAZOLAM 2 MG/2 ML VIAL ONE (09:53)
[2020-06-04] MEDS ORDERED: fentaNYL (PF) 50 MCG/ML 2 ML AMP ONE (09:53)
--- NOTE | 2020-06-04 10:06 | P.PCN ---
Date of Procedure: 06/04/20 Procedure(s) Performed: Procedure= Right sacral iliac joints steroid injection under fluoroscopy guidance (fluoroscopy image stored on file in the radiology Department ) Right trochanteric bursa steroid injection under fluoroscopy guidance. Preoperative diagnosis= 1-right sacroiliitis 2-right trochanteric bursitis 3- lumbar facet arthropathy. Postoperative diagnosis= same as preop diagnoses Complication = none Condition= stable Anesthesia= moderate sedation with intravenous Versed 1 mg.and fentanyl 50 g Indication for the procedure= patient complaining of low back pain , examination was positive for severe tenderness over the sacroiliac joints and patient diagnosed with sacroiliitis, right trochanter bursitis for this reason , she was good candidate for sacroiliac joint steroid injection. Under to the bursa steroid injectionright Description of the procedure= procedure risk and benefits discussed with the patient, including but not limited, risk of infection and bleeding, and ALLERGIC reaction to the medication and not complete pain relief and patient agreed with the preceding patient taken to the operating room, placed in prone position or standard monitors applied to the patient then after induction of anesthesia back prepped with chlorhexidine 3 times , Then under strict sterile technique, first I did the right sacroiliac joint the which was identified under fluoroscopy guidance been local infiltration of the skin and subcu interstitial with lidocaine 1% then 22-gauge Quincke Needle advanced slowly under fluoroscopy and placed in the right sacroiliac joint needle placement confirmed with AP and oblique and lateral view and after appropriate needle placement confirmed and after negative aspiration, or heme , then Ropivacaine 0.5% 3 mL, and 20 mg of Depo-Medrol mixed together and injected in the right sacroiliac joint after negative aspiration patient tolerated the procedure well without any complication. Then the right trochanter bursa identified under fluoroscopy been the area prepped with chlorhexidine 3, under fluoroscopy guidance 22-gauge spinal needle, advanced slowly under fluoroscopy and placed in the right trochanteric bursa area then after negative aspiration, bupivacaine 0.5% 4 ml ,and 20 mg of Depo-Medrol injected after negative aspiration patient tolerated the procedure well without any complications, patient discharged home in stable condition and after the discharge criteria met
[2020-06-04 10:16] VITALS: RESP 18
[2020-06-04 10:39] VITALS: BP 154/74; PULSE 56
--- NOTE | 2020-06-04 10:39 | FL ---
EXAMINATION TYPE: FL guided pain mgmt statistic DATE OF EXAM: 06/04/2020 HISTORY: Fluoroscopy time 5 seconds of fluoroscopy provided. IMPRESSION: 1. Fluoroscopy time.
== END 2020-06-04 10:47 | disposition home or self-care (01) ==
LOC: ORPAIN 08:55
PROVIDERS: ATTEND Specialist
DX: M46.1 Sacroiliitis, not elsewhere classified (principal); M70.61 Trochanteric bursitis, right hip; M47.816 Spondylosis without myelopathy or radiculopathy, lumbar region; I10 Essential (primary) hypertension; I48.91 Unspecified atrial fibrillation; Z79.01 Long term (current) use of anticoagulants; Z91.018 Allergy to other foods
CPT/HCPCS: 20610; J2250; J1030; J3010; J2795; G0260; 27096

== ENCOUNTER 2020-08-11 08:45 | Day surgery (SDC) | payer MEDICARE ==
[2020-08-10 10:01] VITALS: BMI 26.7
[2020-08-11 09:09] VITALS: RESP 16; TEMP 97.4
[2020-08-11] MEDS ORDERED: IOPAMIDOL M200 10 ML VIAL ONE (09:29)
[2020-08-11] MEDS ORDERED: TRIAMCINOLONE ACETONIDE 40 MG/ML 1 ML VIAL ONE (09:29)
[2020-08-11] MEDS ORDERED: ROPIVACAINE 5MG/ML 20ML VIAL ONE (09:29)
--- NOTE | 2020-08-11 09:40 | P.PCN ---
Date of Procedure: 08/11/20 Description of Procedure: Preoperative diagnoses: rightsacroilitis Postoperative diagnoses: right sacroilitis. Procedure: bilateral sacroiliac joint steroid injection under fluoroscopic guidance. Surgeon: Paolo Brantley MD Anesthesia: [2 mL of 1% lidocaine Fluoroscopy was used for the procedure and fluoroscopic images were saved to the radiology portion of the patient's chart. EBL: None Procedure indication: The patient had a history of severe chronic low back pain, diagnosed with sacroiliitis unresponsive to conservative treatment. Procedure description: The patient was seen and identified in the preoperative holding area, risks and benefits and alternative of the procedure and possible complications discussed with the patient, and patient agreed with the preceding, patient signed the consent, an IV was started, and vital signs were monitored and were stable throughout the procedure, patient was placed in the prone position on table and the lumbosacral area was prepped and draped with a sterile fashion, vital signs were closely monitored during the procedure, the fluoroscopy camera was placed in the contralateral oblique view on the bilateral sacroiliac joint and the lower part of the joint was identified . Then the skin and subcutaneous tissue was anesthetized using 2 mL of 1% lidocaine then a 22- gauge Quincke-type spinal needle advanced slowly under fluoroscopy and placed in the posterior and inferior border of the right sacroiliac joint, placement confirmed with AP and lateral view, and after appropriate needle placement confirmed and after negative aspiration for heme, 1 mL of Isovue 200 was injected revealing intra-articular spread. Then a solution consisting of 3 ml of ropivacaine 0.5% and 40 mg of Kenalog injected after negative aspiration, no paresthesia during the injection, no resistance to injection, and the needle was removed. The procedure was then repeated on the left side. Total of 40 mg of Kenalog was used for the procedure. Patient tolerated the procedure well without any complication. The patient was returned to supine position after the back was cleaned and a Band-Aid applied, the patient was transported to recovery room in stable condition and monitored for 30 minutes before being discharged home. The patient will follow up with the pain clinic in a few weeks
[2020-08-11 09:50] VITALS: BP 160/66; PULSE 62
--- NOTE | 2020-08-11 09:53 | FL ---
EXAMINATION TYPE: FL guided pain mgmt statistic DATE OF EXAM: 08/11/2020 HISTORY: Fluoroscopy time 3 seconds of fluoroscopy provided. IMPRESSION: 1. Fluoroscopy time.
== END 2020-08-11 10:18 | disposition home or self-care (01) ==
LOC: ORPAIN 08:45
PROVIDERS: ATTEND Anesthesiology
DX: G89.29 Other chronic pain (principal); M46.1 Sacroiliitis, not elsewhere classified; Z91.018 Allergy to other foods; Z79.01 Long term (current) use of anticoagulants
CPT/HCPCS: J3301; Q9966; J2795; G0260; 27096

== ENCOUNTER 2022-06-19 15:15 | Observation (INO) | payer MEDICARE ==
[2022-06-19 15:47] LABS: HCT 36.4 % (34.0-46.0); HGB 11.7 gm/dL (11.4-16.0); MCH 31.4 pg (25.0-35.0); MCHC 32.3 g/dL (31.0-37.0); MCV 97.3 fL (80.0-100.0); Mean Platelet Volume 7.2; Platelet Count 217 k/uL (150-450); RBC 3.74 m/uL (3.80-5.40); RDW 12.7 % (11.5-15.5); WBC 5.2 k/uL (3.8-10.6)
[2022-06-19 15:54] LABS: INR 1.1 (<1.2); Partial Thromboplastin Time 27.4 sec (22.0-30.0); Prothrombin Time 11.4 sec (9.0-12.0)
--- NOTE | 2022-06-19 15:58 | ED ---
General Adult HPI - General Chief complaint: Chest Pain Stated complaint: Chest pain Time Seen by Provider: 06/19/22 15:19 Source: patient, EMS, RN notes reviewed, old records reviewed Mode of arrival: EMS Limitations: no limitations - History of Present Illness Initial comments: 86-year-old female presenting for evaluation of chest discomfort and light headedness. Patient's symptoms have been present today. She thought perhaps she was in atrial fibrillation she does have a history of A. fib. She denied any previous history of CAD. She denied focal numbness or weakness. No headache. No cough or cold symptoms. No abdominal pain. No vomiting. She states she ate breakfast today. - Related Data Home Medications Medication Instructions Recorded Confirmed Atorvastatin [Lipitor] 10 mg PO HS 07/10/18 08/10/20 Calcium Carbonate/Vitamin D3 1 tab PO BID 07/10/18 08/10/20 [Calcium 500-Vit D3 5 Mcg (200 Iu)] Citalopram Hydrobromide [CeleXA] 20 mg PO DAILY 07/10/18 08/10/20 Loratadine [Claritin] 10 mg PO DAILY 07/10/18 08/10/20 Losartan [Cozaar] 100 mg PO HS 07/10/18 08/10/20 Multivitamins, Thera [Multivitamin 1 tab PO DAILY 07/10/18 08/10/20 (formulary)] Vit C/E/Zn/Coppr/Lutein/Zeaxan 1 cap PO BID 07/10/18 08/10/20 [Preservision Areds 2 Softgel] Chlorthalidone 25 mg PO DAILY 04/23/20 08/10/20 Previous Rx's Medication Instructions Recorded Ferrous Sulfate [Feosol] 325 mg PO DAILY #30 tab 07/18/18 Apixaban [Eliquis] 5 mg PO BID #60 tab 03/31/19 Metoprolol Tartrate [Lopressor] 25 mg PO BID #60 tab 03/31/19 amLODIPine [Norvasc] 5 mg PO DAILY #30 tab 03/31/19 Allergies Allergy/AdvReac Type Severity Reaction Status Date / Time gluten Allergy Nausea & Verified 06/19/22 15:24 Vomiting & Diarrhea Review of Systems ROS Statement: Those systems with pertinent positive or pertinent negative responses have been documented in the HPI. ROS Other: All systems not noted in ROS Statement are negative. 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 History of Any Multi-Drug Resistant Organisms: None Reported Past Surgical History: Joint Replacement, Orthopedic Surgery Additional Past Surgical History / Comment(s): Bilateral knee replacements, left femur fx repair with hardware, BILATERAL CATARACTS, BILATERAL EYELID SURGERY, COLONOSCOPY. Past Anesthesia/Blood Transfusion Reactions: Previous Problems w/ Anesthesia, Motion Sickness Additional Past Anesthesia/Blood Transfusion Reaction / Comment(s): Hard time waking from anesthesia. Past Psychological History: No Psychological Hx Reported Smoking Status: Former smoker Past Alcohol Use History: Occasional Past Drug Use History: None Reported - Past Family History Mother History Unknown: Yes Additional Family Medical History / Comment(s): myasthenia gravis Sister(s) History Unknown: Yes Additional Family Medical History / Comment(s): phlebitis Brother(s) Family Medical History: Cancer Daughter(s) Family Medical History: Osteoarthritis (OA) Son(s) Family Medical History: Unable to Obtain General Exam Limitations: no limitations General appearance: alert, in no apparent distress Head exam: Present: atraumatic, normocephalic Eye exam: Present: normal appearance, PERRL ENT exam: Present: normal exam Neck exam: Present: normal inspection. Absent: tenderness, meningismus Respiratory exam: Present: normal lung sounds bilaterally. Absent: respiratory distress, wheezes Cardiovascular Exam: Present: regular rate, normal rhythm GI/Abdominal exam: Present: soft. Absent: distended, tenderness, guarding Extremities exam: Present: normal inspection, normal capillary refill. Absent: pedal edema Neurological exam: Present: alert, oriented X3, CN II-XII intact. Absent: motor sensory deficit Psychiatric exam: Present: normal affect, normal mood Skin exam: Present: warm, dry, intact. Absent: cyanosis, diaphoretic Course Vital Signs 06/19/22 15:18 Temperature 98.3 F Pulse Rate 61 Respiratory 20 Rate Blood Pressure 144/60 O2 Sat by Pulse 97 Oximetry - Reevaluation(s) Reevaluation #1: 06/19/22 16:46 Patient does have some runs of a controlled atrial fibrillation EKG Findings - EKG Comments: EKG Findings:: EKG: Sinus bradycardia rate of 57, CT interval 150, QRS duration 108, QTC [address] segment changes. Medical Decision Making - Medical Decision Making 86-year-old female presenting with chest pain and lightheadedness. Patient well-appearing with stable vitals. Nonfocal neurologic exam, no ataxia, she is initially in sinus rhythm although she has some episodes of atrial fibrillation while in the emergency department these are rate control. She is anticoagulated at baseline. Initial workup reveals normal CBC, mild hyponatremia 130, negative initial troponin. She will be monitored on telemetry with serial cardiac enzymes, cardiology consultation. Case discussed with Cristina anderson for [facility] - Lab Data Result diagrams: 06/19/22 15:20 06/19/22 15:20 Lab Results 06/19/22 06/19/22 06/19/22 Range/Units 15:20 15:20 15:20 WBC 5.2 (3.8-10.6) k/uL RBC 3.74 L (3.80-5.40) m/uL Hgb 11.7 (11.4-16.0) gm/dL Hct 36.4 (34.0-46.0) % MCV 97.3 (80.0-100.0) fL MCH 31.4 (25.0-35.0) pg MCHC 32.3 (31.0-37.0) g/dL RDW 12.7 (11.5-15.5) % Plt Count 217 (150-450) k/uL MPV 7.2 Neutrophils % (Manual) 56 % Lymphocytes % (Manual) 29 % Monocytes % (Manual) 9 % Eosinophils % (Manual) 5 % Basophils % (Manual) 1 % Neutrophils # (Manual) 2.91 (1.3-7.7) k/uL Lymphocytes # (Manual) 1.51 (1.0-4.8) k/uL Monocytes # (Manual) 0.47 (0-1.0) k/uL Eosinophils # (Manual) 0.26 (0-0.7) k/uL Basophils # (Manual) 0.05 (0-0.2) k/uL Nucleated RBCs 0 (0-0) /100 WBC Manual Slide Review Performed PT 11.4 (9.0-12.0) sec INR 1.1 (<1.2) APTT 27.4 (22.0-30.0) sec Sodium 130 L (137-145) mmol/L Potassium 3.7 (3.5-5.1) mmol/L Chloride 93 L (98-107) mmol/L Carbon Dioxide 26 (22-30) mmol/L Anion Gap 11 mmol/L BUN 16 (7-17) mg/dL Creatinine 0.78 (0.52-1.04) mg/dL Est GFR (CKD-EPI)AfAm 81 (>60 ml/min/1.73 sqM) Est GFR (CKD-EPI)NonAf 70 (>60 ml/min/1.73 sqM) Glucose 93 (74-99) mg/dL Plasma Lactic Acid [place] (0.7-2.0) mmol/L Calcium 9.4 (8.4-10.2) mg/dL Magnesium 1.7 (1.6-2.3) mg/dL Total Bilirubin 0.4 (0.2-1.3) mg/dL AST 36 (14-36) U/L ALT 22 (4-34) U/L Alkaline Phosphatase 81 (38-126) U/L Troponin I (0.000-0.034) ng/mL Total Protein 6.6 (6.3-8.2) g/dL Albumin 3.9 (3.5-5.0) g/dL Urine Color Urine Appearance (Clear) Urine pH (5.0-8.0) Ur Specific [place] (1.001-1.035) Urine Protein (Negative) Urine Glucose (UA) (Negative) Urine Ketones (Negative) Urine Blood (Negative) Urine Nitrite (Negative) Urine Bilirubin (Negative) Urine Urobilinogen (<2.0) mg/dL Ur Leukocyte Esterase (Negative) 06/19/22 06/19/22 06/19/22 Range/Units 15:20 15:20 15:33 WBC (3.8-10.6) k/uL RBC (3.80-5.40) m/uL Hgb (11.4-16.0) gm/dL Hct (34.0-46.0) % MCV (80.0-100.0) fL MCH (25.0-35.0) pg MCHC (31.0-37.0) g/dL RDW (11.5-15.5) % Plt Count (150-450) k/uL MPV Neutrophils % (Manual) % Lymphocytes % (Manual) % Monocytes % (Manual) % Eosinophils % (Manual) % Basophils % (Manual) % Neutrophils # (Manual) (1.3-7.7) k/uL Lymphocytes # (Manual) (1.0-4.8) k/uL Monocytes # (Manual) (0-1.0) k/uL Eosinophils # (Manual) (0-0.7) k/uL Basophils # (Manual) (0-0.2) k/uL Nucleated RBCs (0-0) /100 WBC Manual Slide Review PT (9.0-12.0) sec INR (<1.2) APTT (22.0-30.0) sec Sodium (137-145) mmol/L Potassium (3.5-5.1) mmol/L Chloride (98-107) mmol/L Carbon Dioxide (22-30) mmol/L Anion Gap mmol/L BUN (7-17) mg/dL Creatinine (0.52-1.04) mg/dL Est GFR (CKD-EPI)AfAm (>60 ml/min/1.73 sqM) Est GFR (CKD-EPI)NonAf (>60 ml/min/1.73 sqM) Glucose (74-99) mg/dL Plasma Lactic Acid [place] 0.7 (0.7-2.0) mmol/L Calcium (8.4-10.2) mg/dL Magnesium (1.6-2.3) mg/dL Total Bilirubin (0.2-1.3) mg/dL AST (14-36) U/L ALT (4-34) U/L Alkaline Phosphatase (38-126) U/L Troponin I <0.012 (0.000-0.034) ng/mL Total Protein (6.3-8.2) g/dL Albumin (3.5-5.0) g/dL Urine Color Yellow Urine Appearance Clear (Clear) Urine pH 7.0 (5.0-8.0) Ur Specific [place] 1.011 (1.001-1.035) Urine Protein Negative (Negative) Urine Glucose (UA) Negative (Negative) Urine Ketones Negative (Negative) Urine Blood Negative (Negative) Urine Nitrite Negative (Negative) Urine Bilirubin Negative (Negative) Urine Urobilinogen <2.0 (<2.0) mg/dL Ur Leukocyte Esterase Negative (Negative) Disposition Clinical Impression: Chest pain Disposition: ADMITTED IP TO THIS HOSP Condition: Stable Is patient prescribed a controlled substance at d/c from ED?: No Referrals: Dean Tinoco MD [STAFF PHYSICIAN] - 1-2 days Time of Disposition: 16:47
[2022-06-19 16:01] LABS: Albumin 3.9 g/dL (3.5-5.0); Calcium 9.4 mg/dL (8.4-10.2); Magnesium 1.7 mg/dL (1.6-2.3); Potassium 3.7 mmol/L (3.5-5.1); Total Bilirubin 0.4 mg/dL (0.2-1.3); Total Protein 6.6 g/dL (6.3-8.2)
[2022-06-19 16:05] LABS: Appearance,Urine Clear (Clear); Bilirubin,Urine Negative (Negative); Blood,Urine Negative (Negative); Color,Urine Yellow; Glucose,Urine (UA) Negative (Negative); Ketones,Urine Negative (Negative); Leukocyte Esterase,Urine Negative (Negative); Nitrite,Urine Negative (Negative); Protein,Urine Negative (Negative); Specific Gravity,Urine 1.011 (1.001-1.035); Urobilinogen,Urine <2.0 mg/dL (<2.0)
--- NOTE | 2022-06-19 16:19 | XR ---
EXAMINATION TYPE: XR chest 2V DATE OF EXAM: 06/19/2022 COMPARISON: 03/29/2019 HISTORY: Weakness TECHNIQUE: Frontal and lateral views of the chest are obtained. FINDINGS: The heart is mildly enlarged and the pulmonary vasculature appears mildly congested. There is no airspace consolidation. There is no pleural effusion or pneumothorax. There are remote healed left rib fractures. IMPRESSION: Findings possibly indicate mild CHF. Clinical correlation short-term follow-up is recomm ended.
[2022-06-19 16:20] LABS: Basophils # (M) 0.05 k/uL (0-0.2); Eosinophils # (M) 0.26 k/uL (0-0.7); Lymphocytes # (M) 1.51 k/uL (1.0-4.8); Monocytes # (M) 0.47 k/uL (0-1.0); Neutrophils # (M) 2.91 k/uL (1.3-7.7); Neutrophils % (M) 56 %; Nucleated Red Blood Cells 0 /100 WBC (0-0); Total Cells Counted 100
[2022-06-19] MEDS ORDERED: NALOXONE 0.4 MG/ML 1 ML VIAL IV PRN (16:45)
[2022-06-19] MEDS ORDERED: ONDANSETRON 4 MG/2 ML VIAL IVP PRN (16:45)
[2022-06-19] MEDS: SODIUM CHLORIDE 0.9% 1,000 ML IV SCH (16:45)
[2022-06-19] MEDS ORDERED: METOPROLOL TARTRATE 25 MG TAB PO SCH (23:00)
[2022-06-19] MEDS: APIXABAN 5 MG TAB PO SCH (23:07)
[2022-06-19] MEDS: LOSARTAN 50 MG TAB PO SCH (23:07)
[2022-06-20] MEDS ORDERED: amLODIPine 5 MG TAB PO SCH (09:00)
--- NOTE | 2022-06-20 09:00 | P.CRDCN ---
History of Present Illness Consult date: 06/20/22 History of present illness: HISTORY OF PRESENT ILLNESS: This is a 86-year-old female with a past medical history significant for paroxysmal atrial fibrillation, hypertension, hyperlipidemia, and valvular heart disease. Patient follows in the office with Dr. Peng. We have been asked to see the patient in consultation for chest pain. Patient examined at the bedside. Patient states over the past couple days she has been feeling lightheaded and dizzy. She reports having some chest heaviness as well. She states the heaviness is in the middle of her chest. She reports feeling short of breath. She states the pain is worse when she is up ambulating. Patients blood pressure has been stable. He heart rate is on the lower side between 50-60. * EKG reveals sinus mechanism with no signs of acute ischemia * Chest xray findings possibly indicate mild CHF. * Laboratory data: WBC 5.2. Hemoglobin 11.7. Platelet count 217. Sodium 130. Potassium 3.7. BUN 16. Creatinine 0.78. Troponin negative 3. * Current home cardiac medications include Lipitor 10 mg at night, chlorthalidone 25 mg daily, Norvasc 5 mg daily, losartan 100 mg at night, me toprolol tartrate 25 mg twice a day, and Eliquis 5mg BID * Most recent echocardiogram obtained in December 2021 revealed normal EF, moderate to severe mitral regurgitation, moderate tricuspid regurgitation * Patient underwent Lexiscan stress test in December 2021 which was negative for ischemia REVIEW OF SYSTEMS: At the time of my exam: CONSTITUTIONAL: Denies fever or chills. HEENT: Denies blurred vision, vision changes, or eye pain. Denies hemoptysis CARDIOVASCULAR: Denies chest pain. Denies orthopnea. Denies PND. Denies palpitations RESPIRATORY: Denies shortness of breath. GASTROINTESTINAL: Denies abdominal pain. Denies nausea or vomiting. HEMATOLOGIC: Denies bleeding disorders. GENITOURINARY: Denies any blood in urine. SKIN: Denies pruitis. Denies rash. PHYSICAL EXAM: VITAL SIGNS: Reviewed. GENERAL: Well-developed in no acute distress. HEENT: Head is normocephalic. Pupils are equal, round. Sclerae anicteric. Mucous membranes of the mouth are moist. Neck supple. No JVD or thyromegaly LUNGS: Respirations even and unlabored. Lungs essentially clear to auscultation bilaterally. HEART: Regular rate and rhythm. S1 and S2 heard. Systolic murmur noted ABDOMEN: Soft. Nondistended. Nontender. EXTREMITIES: Normal range of motion. No clubbing or cyanosis. Peripheral pulses intact. No lower extremity edema NEUROLOGIC: Awake and alert. Oriented x 3. ASSESSMENT: Symptoms of lightheadedness and dizziness Sinus bradycardia Chest pain, troponins negative 3 Paroxysmal atrial fibrillation Hypertension Hyperlipidemia Valvular heart disease PLAN: No need to repeat echocardiogram as this was performed in the office in December 2021 Continue current cardiac medications Decrease metoprolol to 12.5 mg twice a day Continue to monitor blood pressure and telemetry Further recommendations pending patient's course Nurse practitioner note has been reviewed by physician. Signing provider agrees with the documented findings, assessment, and plan of care. 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 History of Any Multi-Drug Resistant Organisms: None Reported Past Surgical History: Joint Replacement, Orthopedic Surgery Additional Past Surgical History / Comment(s): left knee replacements, left femur fx repair with hardware, BILATERAL CATARACTS, BILATERAL EYELID SURGERY, COLONOSCOPY, right hip replacement. Past Anesthesia/Blood Transfusion Reactions: Previous Problems w/ Anesthesia, Motion Sickness Additional Past Anesthesia/Blood Transfusion Reaction / Comment(s): Hard time waking from anesthesia. Past Psychological History: No Psychological Hx Reported Smoking Status: Former smoker Past Alcohol Use History: Occasional Additional Past Alcohol Use History / Comment(s): QUIT SMOKING AT AGE 24. SMOKED 1/2PPD. 1 glass wine daily Past Drug Use History: None Reported - Past Family History Mother History Unknown: Yes Additional Family Medical History / Comment(s): myasthenia gravis Sister(s) History Unknown: Yes Additional Family Medical History / Comment(s): phlebitis Brother(s) Family Medical History: Cancer Daughter(s) Family Medical History: Osteoarthritis (OA) Son(s) Family Medical History: Unable to Obtain Medications and Allergies Home Medications Medication Instructions Recorded Confirmed Type Atorvastatin [Lipitor] 10 mg PO HS 07/10/18 06/19/22 History Calcium Carbonate/Vitamin D3 1 tab PO BID 07/10/18 06/19/22 History [Calcium 500-Vit D3 5 Mcg (200 Iu)] Citalopram Hydrobromide [CeleXA] 20 mg PO DAILY 07/10/18 06/19/22 History Loratadine [Claritin] 10 mg PO DAILY 07/10/18 06/19/22 History Multivitamins, Thera [Multivitamin 1 tab PO DAILY 07/10/18 06/19/22 History (formulary)] Vit C/E/Zn/Coppr/Lutein/Zeaxan 1 cap PO BID 07/10/18 06/19/22 History [Preservision Areds 2 Softgel] Ferrous Sulfate [Feosol] 325 mg PO DAILY #30 tab 07/18/18 06/19/22 Rx Apixaban [Eliquis] 5 mg PO BID #60 tab 03/31/19 06/19/22 Rx Metoprolol Tartrate [Lopressor] 25 mg PO BID #60 tab 03/31/19 06/19/22 Rx amLODIPine [Norvasc] 5 mg PO DAILY #30 tab 03/31/19 06/19/22 Rx Chlorthalidone 25 mg PO DAILY 04/23/20 06/19/22 History Losartan Potassium 100 mg PO HS 06/19/22 06/19/22 History Allergies Allergy/AdvReac Type Severity Reaction Status Date / Time gluten Allergy Nausea & Verified 06/19/22 16:55 Vomiting & Diarrhea Physical Exam Vitals: Vital Signs Temp Pulse Pulse Resp BP BP Pulse Ox 06/20/22 07:00 97.9 F 65 18 146/58 94 L 06/20/22 02:06 97.6 F 54 L 18 136/62 98 06/20/22 01:31 66 18 06/19/22 22:34 66 18 06/19/22 19:00 97.8 F 66 18 156/66 97 06/19/22 17:37 97.6 F 63 18 145/61 95 06/19/22 17:00 64 18 144/60 96 06/19/22 16:00 60 20 150/60 95 06/19/22 15:18 98.3 F 61 20 144/60 97 Intake and Output 06/19/22 06/20/22 06/20/22 22:59 06:59 14:59 Other: Voiding Method Toilet Toilet # Voids 1 2 Weight 68.039 kg Results 06/19/22 15:20 06/19/22 15:20 Cardiac Enzymes 06/19/22 06/19/22 06/19/22 Range/Units 15:20 15:20 19:20 AST 36 (14-36) U/L Troponin I <0.012 <0.012 (0.000-0.034) ng/mL 06/19/22 Range/Units 21:36 AST (14-36) U/L Troponin I <0.012 (0.000-0.034) ng/mL Coagulation 06/19/22 Range/Units 15:20 PT 11.4 (9.0-12.0) sec APTT 27.4 (22.0-30.0) sec CBC 06/19/22 Range/Units 15:20 WBC 5.2 (3.8-10.6) k/uL RBC 3.74 L (3.80-5.40) m/uL Hgb 11.7 (11.4-16.0) gm/dL Hct 36.4 (34.0-46.0) % Plt Count 217 (150-450) k/uL Comprehensive Metabolic Panel 06/19/22 Range/Units 15:20 Sodium 130 L (137-145) mmol/L Potassium 3.7 (3.5-5.1) mmol/L Chloride 93 L (98-107) mmol/L Carbon Dioxide 26 (22-30) mmol/L BUN 16 (7-17) mg/dL Creatinine 0.78 (0.52-1.04) mg/dL Glucose 93 (74-99) mg/dL Calcium 9.4 (8.4-10.2) mg/dL AST 36 (14-36) U/L ALT 22 (4-34) U/L Alkaline Phosphatase 81 (38-126) U/L Total Protein 6.6 (6.3-8.2) g/dL Albumin 3.9 (3.5-5.0) g/dL Current Medications Generic Name Dose Route Start Last Admin Trade Name Freq PRN Reason Stop Dose Admin Amlodipine Besylate 5 mg 06/20/22 09:00 Amlodipine 5 Mg Tab PO DAILY [facility] Apixaban 5 mg 06/19/22 23:00 06/19/22 23:07 Apixaban 5 Mg Tab PO 5 mg BID [facility] Administration Protocol Atorvastatin Calcium 10 mg 06/20/22 21:00 Atorvastatin 10 Mg Tab PO HS [facility] Calcium Carbonate 1 each 06/20/22 09:00 Calcium Carb-Vit D 500 Mg-5 Mcg Tab PO BID [facility] Chlorthalidone 25 mg 06/20/22 09:00 Chlorthalidone 25 Mg Tab PO DAILY [facility] Citalopram Hydrobromide 20 mg 06/20/22 09:00 Citalopram Hydrobromide 20 Mg Tab PO DAILY [facility] Ferrous Sulfate 325 mg 06/20/22 09:00 Ferrous Sulfate 325 Mg Tab PO DAILY [facility] Sodium Chloride 1,000 mls @ 75 mls/hr 06/19/22 16:45 06/19/22 16:45 Saline 0.9% IV 75 mls/hr .[id number] [facility] Administration Loratadine 10 mg 06/20/22 09:00 Loratadine 10 Mg Tab PO DAILY [facility] Losartan Potassium 100 mg 06/19/22 23:00 06/19/22 23:07 Losartan 50 Mg Tab PO 100 mg HS [facility] Administration Metoprolol Tartrate 12.5 mg 06/20/22 09:00 Metoprolol Tartrate 12.5 Mg Tab PO BID [facility] Multivitamins 1 each 06/20/22 09:00 Multivitamins, Thera 1 Each Tab PO DAILY [facility] Multivitamins/Minerals 1 each 06/20/22 09:00 Vit A,C & G-Ejmgpo-Ojiuznae 1 Each Tab PO BID [facility] Naloxone HCl 0.2 mg 06/19/22 16:45 Naloxone 0.4 Mg/Ml 1 Ml Vial IV Q2M PRN Opioid Reversal Ondansetron HCl 4 mg 06/19/22 16:45 Ondansetron 4 Mg/2 Ml Vial IVP Q8HR PRN Nausea And Vomiting Intake and Output 06/19/22 06/20/22 06/20/22 22:59 06:59 14:59 Other: Voiding Method Toilet Toilet # Voids 1 2 Weight 68.039 kg 06/19/22 15:20 06/19/22 15:20
[2022-06-20] MEDS: VIT A,C & E-LUTEIN-MINERALS 1 EACH TAB PO SCH ×2 (09:17→20:32)
[2022-06-20] MEDS: APIXABAN 5 MG TAB PO SCH ×2 (09:18→20:32)
[2022-06-20] MEDS: CHLORTHALIDONE 25 MG TAB PO SCH (09:18)
[2022-06-20] MEDS: LORATADINE 10 MG TAB PO SCH (09:18)
[2022-06-20] MEDS: FERROUS SULFATE 325 MG TAB PO SCH (09:18)
[2022-06-20] MEDS: MULTIVITAMINS, THERA 1 EACH TAB PO SCH (09:18)
[2022-06-20] MEDS: CITALOPRAM HYDROBROMIDE 20 MG TAB PO SCH (09:18)
[2022-06-20] MEDS: CALCIUM CARB-VIT D 500 MG-5 MCG TAB PO SCH ×2 (09:18→20:32)
[2022-06-20] MEDS: METOPROLOL TARTRATE 12.5 MG TAB PO SCH ×2 (09:19→20:32)
[2022-06-20] MEDS: SODIUM CHLORIDE 0.9% 1,000 ML IV SCH ×2 (10:07→20:31)
--- NOTE | 2022-06-20 14:46 | P.HPIM ---
History of Present Illness H&P Date: 06/20/22 Chief Complaint: Dizziness Patient is a 86-year-old old female with a known history of atrial fibrillation on anticoagulation with liquids, hearing disorder/deafness, hypertension, hyponatremia, CVA disease, macular degeneration of bilateral eyes and valvular heart disease and previous history of smoking presents to ER with the complaints of dizziness and chest tightness/heaviness. Patient says that she felt very dizzy and tightness in the chest yesterday at rest. Patient was complaining of shortness of breath at the time. Gets worse with ambulation. Denies of cough or sputum production. No fever no chills. Patient felt sickness in her stomach as well. No diarrhea. No episodes of vomiting. EKG showed sinus rhythm. Patient's heart rate was in 50s. Chest x-ray showed no acute cardiopulmonary process Laboratory data showed WBC 5.2 hemoglobin 11.7 and platelets 217 INR 1.1, sodium 1:30 potassium 3.7 chloride 93 bicarb is 26 BUN 16 and creatinine 0.7 and liver enzymes are not elevated Troponin 3 negative and magnesium 1.7 Urinalysis is negative for infection Review of Systems Constitutional: Patient denies any fever or chills . No generalized weakness or weight loss. Abdomen: Patient denied nausea vomiting and diarrhea and abdominal pain. Cardiovascular: Patient denies any chest pain or short of breath no palpitations. Respiratory: patient denied any cough is from production. No shortness of breat h Neurologic: Patient denied any numbness or tingling headache. Patient was complaining of dizziness Musculoskeletal: Patient denies any complaints of joint swelling or deformity. Skin: Negative Psychiatric: Negative Endocrine: No heat or cold intolerance. No recent weight gain. Genitourinary: No dysuria or hematuria. All other 14 point ROS negative except the above Past Medical History Past Medical History: Atrial Fibrillation, Cancer, Eye Disorder, Hearing Disorder / Deafness, Hyperlipidemia, Hypertension, Osteoarthritis (OA) Additional Past Medical History / Comment(s): 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 History of Any Multi-Drug Resistant Organisms: None Reported Past Surgical History: Joint Replacement, Orthopedic Surgery Additional Past Surgical History / Comment(s): left knee replacements, left femur fx repair with hardware, BILATERAL CATARACTS, BILATERAL EYELID SURGERY, COLONOSCOPY, right hip replacement. Past Anesthesia/Blood Transfusion Reactions: Previous Problems w/ Anesthesia, Motion Sickness Additional Past Anesthesia/Blood Transfusion Reaction / Comment(s): Hard time wa leena from anesthesia. Past Psychological History: No Psychological Hx Reported Smoking Status: Former smoker Past Alcohol Use History: Occasional Additional Past Alcohol Use History / Comment(s): QUIT SMOKING AT AGE 24. SMOKED 1/2PPD. 1 glass wine daily Past Drug Use History: None Reported - Past Family History Mother History Unknown: Yes Additional Family Medical History / Comment(s): myasthenia gravis Sister(s) History Unknown: Yes Additional Family Medical History / Comment(s): phlebitis Brother(s) Family Medical History: Cancer Daughter(s) Family Medical History: Osteoarthritis (OA) Son(s) Family Medical History: Unable to Obtain Medications and Allergies Home Medications Medication Instructions Recorded Confirmed Type Atorvastatin [Lipitor] 10 mg PO HS 07/10/18 06/19/22 History Calcium Carbonate/Vitamin D3 1 tab PO BID 07/10/18 06/19/22 History [Calcium 500-Vit D3 5 Mcg (200 Iu)] Citalopram Hydrobromide [CeleXA] 20 mg PO DAILY 07/10/18 06/19/22 History Loratadine [Claritin] 10 mg PO DAILY 07/10/18 06/19/22 History Multivitamins, Thera [Multivitamin 1 tab PO DAILY 07/10/18 06/19/22 History (formulary)] Vit C/E/Zn/Coppr/Lutein/Zeaxan 1 cap PO BID 07/10/18 06/19/22 History [Preservision Areds 2 Softgel] Ferrous Sulfate [Feosol] 325 mg PO DAILY #30 tab 07/18/18 06/19/22 Rx Apixaban [Eliquis] 5 mg PO BID #60 tab 03/31/19 06/19/22 Rx Metoprolol Tartrate [Lopressor] 25 mg PO BID #60 tab 03/31/19 06/19/22 Rx amLODIPine [Norvasc] 5 mg PO DAILY #30 tab 03/31/19 06/19/22 Rx Chlorthalidone 25 mg PO DAILY 04/23/20 06/19/22 History Losartan Potassium 100 mg PO HS 06/19/22 06/19/22 History Allergies Allergy/AdvReac Type Severity Reaction Status Date / Time gluten Allergy Nausea & Verified 06/19/22 16:55 Vomiting & Diarrhea Physical Exam Vitals: Vital Signs Temp Pulse Pulse Resp BP BP Pulse Ox 06/20/22 08:00 65 18 06/20/22 07:00 97.9 F 65 18 146/58 94 L 06/20/22 02:06 97.6 F 54 L 18 136/62 98 06/20/22 01:31 66 18 06/19/22 22:34 66 18 06/19/22 19:00 97.8 F 66 18 156/66 97 06/19/22 17:37 97.6 F 63 18 145/61 95 06/19/22 17:00 64 18 144/60 96 06/19/22 16:00 60 20 150/60 95 06/19/22 15:18 98.3 F 61 20 144/60 97 Intake and Output 06/19/22 06/20/22 06/20/22 22:59 06:59 14:59 Other: Voiding Method Toilet Toilet Toilet # Voids 1 2 Weight 68.039 kg PHYSICAL EXAMINATION: Patient is lying in the bed comfortably, no acute distress, awake alert and oriented.. HEENT: Normocephalic. Neck is supple. Pupils reactive. Nostrils clear. Oral cavity is moist. Neck reveals no JVD, carotid bruits, or thyromegaly. CHEST EXAMINATION: Trachea is central. Symmetrical expansion. Lung tyler clear to auscultation and percussion. CARDIAC: Normal S1, S2 with no gallops. No murmurs ABDOMEN: Soft. Bowel sounds normal. No organomegaly. No abdominal bruits. Extremities: reveal no edema. No clubbing or cyanosis Neurologically awake, alert, oriented x3 with well-coordinated movements. No focal deficits noted Skin: No rash or skin lesions. Psychiatric: Coperative. Nonsuicidal Musculoskeletal: No joint swelling or deformity. Normal range of motion. Results CBC & Chem 7: 06/19/22 15:20 06/19/22 15:20 Labs: Abnormal Lab Results - Last 24 Hours (Table) 06/19/22 06/19/22 Range/Units 15:20 15:20 RBC 3.74 L (3.80-5.40) m/uL Sodium 130 L (137-145) mmol/L Chloride 93 L (98-107) mmol/L Thrombosis Risk Factor Assmnt - DVT/VTE Prophylaxis DVT/VTE Prophylaxis: Pharmacologic Prophylaxis ordered - Choose All That Apply Any of the Below Risk Factors Present?: Yes Each Factor Represents 1 point: Obesity (BMI >25) Other Risk Factors: Yes Each Risk Factor Represents 3 Points: Age 75 years or older Thrombosis Risk Factor Assessment Total Risk Factor Score: 4 Thrombosis Risk Factor Assessment Level: Moderate Risk Assessment and Plan Assessment: Dizziness and lightheadedness likely due to dehydration and possible sinus bradycardia contributing Hypovolemic hyponatremia Hypomagnesemia Chest tightness/pain. Ruled out ACS. Paroxysmal atrial fibrillation on anticoagulation with Eliquis Valvular heart disease Hypertension Hyperlipidemia Osteoarthritis Hearing disorder/deafness GI and DVT prophylaxis. Plan: Patient will be continued on IV hydration with normal saline and telemetry monitoring. Metoprolol dose decreased to 12.5 mg twice a day due to sinus bradycardia. Continue with home medications and anticoagulation with Apixaban. Replace electrolytes and cardiology has seen the patient. Patient recently had 2-D echocardiogram and December 2021. Follow up closely. Discussed with the patient and her family at bedside in detail. Time with Patient: Greater than 30
[2022-06-20] MEDS: MAGNESIUM SULFATE-D5W PMX 1 GM in DEXTROSE/WATER 1 100ML.BAG IVPB SCH ×2 (16:40→18:04)
[2022-06-20] MEDS ORDERED: ACETAMINOPHEN TAB 325 MG TAB PO PRN (18:07)
[2022-06-20] MEDS: LOSARTAN 50 MG TAB PO SCH (20:32)
[2022-06-20] MEDS ORDERED: ATORVASTATIN 10 MG TAB PO SCH (21:00)
[2022-06-21] MEDS: SODIUM CHLORIDE 0.9% 1,000 ML IV SCH (08:03)
[2022-06-21] MEDS: CITALOPRAM HYDROBROMIDE 20 MG TAB PO SCH (08:04)
[2022-06-21] MEDS: CHLORTHALIDONE 25 MG TAB PO SCH (08:04)
[2022-06-21] MEDS: CALCIUM CARB-VIT D 500 MG-5 MCG TAB PO SCH (08:04)
[2022-06-21] MEDS: APIXABAN 5 MG TAB PO SCH (08:04)
[2022-06-21] MEDS: LORATADINE 10 MG TAB PO SCH (08:05)
[2022-06-21] MEDS: METOPROLOL TARTRATE 12.5 MG TAB PO SCH (08:05)
[2022-06-21] MEDS: FERROUS SULFATE 325 MG TAB PO SCH (08:05)
[2022-06-21] MEDS: MULTIVITAMINS, THERA 1 EACH TAB PO SCH (08:05)
[2022-06-21] MEDS: VIT A,C & E-LUTEIN-MINERALS 1 EACH TAB PO SCH (08:05)
[2022-06-21 08:27] VITALS: RESP 18
[2022-06-21] MEDS ORDERED: amLODIPine 10 MG TAB PO SCH (09:00)
[2022-06-21 09:31] LABS: Basophils # (A) 0.04 X 10*3/uL (0.00-0.10); Basophils % (A) 0.7 %; Eosinophils # (A) 0.19 X 10*3/uL (0.04-0.35); Eosinophils % (A) 3.3 %; HCT 34.1 % (37.2-46.3); HGB 11.4 g/dL (12.0-15.0); Immature Grans, Automated 0.3 %; Lymphocytes # (A) 1.28 X 10*3/uL (0.90-5.00); Lymphocytes % (A) 22.1 %; MCH 32.2 pg (27.0-32.0); MCHC 33.4 g/dL (32.0-37.0); MCV 96.3 fL (80.0-97.0); Mean Platelet Volume 10.2 fL (9.5-12.2); Monocytes # (A) 0.55 X 10*3/uL (0.20-1.00); Monocytes % (A) 9.5 %; NRBC Per 100 WBC 0 /100 WBCS (0.0-0.0); Neutrophils # (A) 3.71 X 10*3/uL (1.80-7.70); Neutrophils % (A) 64.1 %; Platelet Count 246 X 10*3/uL (140-440); RBC 3.54 X 10*6/uL (4.10-5.20); RDW 13.1 % (11.5-14.5); WBC 5.79 X 10*3/uL (4.50-10.00)
--- NOTE | 2022-06-21 09:47 | P.PN ---
Subjective Progress Note Date: 06/21/22 HISTORY OF PRESENT ILLNESS: This is a 86-year-old female with a past medical history significant for paroxysmal atrial fibrillation, hypertension, hyperlipidemia, and valvular heart disease. Patient follows in the office with Dr. Peng. We have been asked to see the patient in consultation for chest pain. Patient examined at the bedside. Patient states over the past couple days she has been feeling lightheaded and dizzy. She reports having some chest heaviness as well. She states the heaviness is in the middle of her chest. She reports feeling short of breath. She states the pain is worse when she is up ambulating. Patients blood pressure has been stable. He heart rate is on the lower side between 50-60. * EKG reveals sinus mechanism with no signs of acute ischemia * Chest xray findings possibly indicate mild CHF. * Laboratory data: WBC 5.2. Hemoglobin 11.7. Platelet count 217. Sodium 130. Potassium 3.7. BUN 16. Creatinine 0.78. Troponin negative 3. * Current home cardiac medications include Lipitor 10 mg at night, chlorthalidone 25 mg daily, Norvasc 5 mg daily, losartan 100 mg at night, metoprolol tartrate 25 mg twice a day, and Eliquis 5mg BID * Most recent echocardiogram obtained in December 2021 revealed normal EF, moderate to severe mitral regurgitation, moderate tricuspid regurgitation * Patient underwent Lexiscan stress test in December 2021 which was negative for ischemia 06/21/2022 Patient examined this morning at the bedside. Patient denies chest pain or pressure. Patient denies shortness of breath. Vital signs are stable. PHYSICAL EXAM: VITAL SIGNS: Reviewed. GENERAL: Well-developed in no acute distress. HEENT: Head is normocephalic. Pupils are equal, round. Sclerae anicteric. Mucous membranes of the mouth are moist. Neck supple. No JVD or thyromegaly LUNGS: Respirations even and unlabored. Lungs essentially clear to auscultation bilaterally. HEART: Regular rate and rhythm. S1 and S2 heard. Systolic murmur noted ABDOMEN: Soft. Nondistended. Nontender. EXTREMITIES: Normal range of motion. No clubbing or cyanosis. Peripheral pulses intact. No lower extremity edema NEUROLOGIC: Awake and alert. Oriented x 3. ASSESSMENT: Symptoms of lightheadedness and dizziness Sinus bradycardia Chest pain, troponins negative 3 Paroxysmal atrial fibrillation Hypertension Hyperlipidemia Valvular heart disease PLAN: Continue current cardiac medications Increase Norvasc for optimal blood pressure control Patient is stable for discharge home today from a cardiac standpoint We will sign off. Please reconsult if needed. Nurse practitioner note has been reviewed by physician. Signing provider agrees with the documented findings, assessment, and plan of care. Objective - Vital Signs Vital signs: Vital Signs Temp 98.2 F 06/21/22 08:26 Pulse 80 06/21/22 08:27 Resp 18 06/21/22 08:27 BP 165/55 06/21/22 08:26 Pulse Ox 94 L 06/21/22 08:26 FiO2 Intake & Output 06/20/22 06/21/22 06/21/22 18:59 06:59 18:59 Intake Total 120 Balance 120 Intake: Oral 120 Other: Voiding Method Toilet Toilet Toilet # Voids 2 1 - Labs CBC & Chem 7: 06/21/22 05:16 06/21/22 05:16 Labs: Abnormal Lab Results - Last 24 Hours (Table) 06/21/22 Range/Units 05:16 RBC 3.54 L (4.10-5.20) X 10*6/uL Hgb 11.4 L (12.0-15.0) g/dL Hct 34.1 L (37.2-46.3) % MCH 32.2 H (27.0-32.0) pg
[2022-06-21 10:02] LABS: African American GFR (CKD) 92.2 (60.0-200.0); Anion Gap 8.3 mmol/L (10.00-18.00); BUN/Creat Ratio 15.43 Ratio (12.00-20.00); Blood Urea Nitrogen 10.8 mg/dL (9.0-27.0); Calcium 8.9 mg/dL (8.7-10.3); Carbon Dioxide 27.7 mmol/L (20.0-27.5); Non-African American GFR(CKD) 79.6 (60.0-200.0); Potassium 3.8 mmol/L (3.5-5.5)
[2022-06-21 13:55] VITALS: BP 155/62; PULSE 80; TEMP 98.7
== END 2022-06-21 15:57 | disposition home or self-care (01) ==
LOC: EC 15:15 → 6NMEDSUR 16:45
PROVIDERS: ADMIT Hospitalist; ATTEND Hospitalist
DX: R07.89 Other chest pain (principal); I11.9 Hypertensive heart disease without heart failure; E78.5 Hyperlipidemia, unspecified; E86.1 Hypovolemia; E83.42 Hypomagnesemia; I48.0 Paroxysmal atrial fibrillation; R00.1 Bradycardia, unspecified; K90.0 Celiac disease; E87.1 Hypo-osmolality and hyponatremia; H91.90 Unspecified hearing loss, unspecified ear; H35.30 Unspecified macular degeneration; Z85.828 Personal history of other malignant neoplasm of skin; Z79.899 Other long term (current) drug therapy; Z79.01 Long term (current) use of anticoagulants; Z97.4 Presence of external hearing-aid; Z96.653 Presence of artificial knee joint, bilateral; Z98.42 Cataract extraction status, left eye; Z98.41 Cataract extraction status, right eye; Z87.891 Personal history of nicotine dependence; Z80.9 Family history of malignant neoplasm, unspecified; Z82.61 Family history of arthritis; Z96.641 Presence of right artificial hip joint; Z86.73 Personal history of transient ischemic attack (TIA), and cerebral infarction without residual deficits
CPT/HCPCS: 96361; 96365; 96366; 96360; 99285; 36415; 93005; 80053; 80048; 83605; 83735; 84484; 85025 ×2; 85610; 85730; 81003; 71046; G0378 ×3; J3475

== ENCOUNTER 2022-08-18 11:40 | Inpatient (IN) | payer MEDICARE ==
[~2022-08-18 11:40] MED LIST changes: -LACTATED RINGERS 1,000 ML IV SCH; +VANCOMYCIN 1,250 MG in SODIUM CHLORIDE 0.9% 250 ML IVPB SCH
[2022-08-18] MEDS ORDERED: SODIUM CHLORIDE 0.9% 1,000 ML IV STA (12:15)
--- NOTE | 2022-08-18 12:20 | ED ---
General Adult HPI - General Chief complaint: Extremity Injury, Lower Stated complaint: Toe Pain, SOB Time Seen by Provider: 08/18/22 11:50 Source: patient, family, EMS, RN notes reviewed Mode of arrival: EMS Limitations: no limitations - History of Present Illness Initial comments: Patient is a pleasant 87-year-old female presenting to the emergency Department with 2 complaints. Patient has felt short of breath. Dyspnea has just started the past day or so and has progressed. No cough. No chest pain. No history of similar symptoms previously. Patient also has left foot pain. Patient did have hammertoe surgery done on left third and fourth digits approximately 3 weeks ago. Patient started to notice discoloration of the second toe a couple of days following this that has progressively worsened. Patient states the toe has looked black for over a week now. Patient did follow-up with her foot doctor regarding this. Patient is on eliquis secondary to history of atrial fibrillation. - Related Data Home Medications Medication Instructions Recorded Confirmed Atorvastatin [Lipitor] 10 mg PO HS 07/10/18 06/19/22 Calcium Carbonate/Vitamin D3 1 tab PO BID 07/10/18 06/19/22 [Calcium 500-Vit D3 5 Mcg (200 Iu)] Citalopram Hydrobromide [CeleXA] 20 mg PO DAILY 07/10/18 06/19/22 Loratadine [Claritin] 10 mg PO DAILY 07/10/18 06/19/22 Multivitamins, Thera [Multivitamin 1 tab PO DAILY 07/10/18 06/19/22 (formulary)] Vit C/E/Zn/Coppr/Lutein/Zeaxan 1 cap PO BID 07/10/18 06/19/22 [Preservision Areds 2 Softgel] Chlorthalidone 25 mg PO DAILY 04/23/20 06/19/22 Losartan Potassium 100 mg PO HS 06/19/22 06/19/22 Previous Rx's Medication Instructions Recorded Ferrous Sulfate [Feosol] 325 mg PO DAILY #30 tab 07/18/18 Apixaban [Eliquis] 5 mg PO BID #60 tab 03/31/19 Metoprolol Tartrate [Lopressor] 12.5 mg PO BID #60 06/21/22 amLODIPine [Norvasc] 10 mg PO DAILY #30 tab 06/21/22 Allergies Allergy/AdvReac Type Severity Reaction Status Date / Time gluten Allergy Nausea & Verified 06/19/22 16:55 Vomiting & Diarrhea Review of Systems ROS Statement: Those systems with pertinent positive or pertinent negative responses have been documented in the HPI. ROS Other: All systems not noted in ROS Statement are negative. 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 History of Any Multi-Drug Resistant Organisms: None Reported Past Surgical History: Joint Replacement, Orthopedic Surgery Additional Past Surgical History / Comment(s): left knee replacements, left femur fx repair with hardware, BILATERAL CATARACTS, BILATERAL EYELID SURGERY, COLONOSCOPY, right hip replacement, hammer toe fixed on left foot. Past Anesthesia/Blood Transfusion Reactions: Previous Problems w/ Anesthesia, Motion Sickness Additional Past Anesthesia/Blood Transfusion Reaction / Comment(s): Hard time waking from anesthesia. Past Psychological History: No Psychological Hx Reported Smoking Status: Former smoker Past Alcohol Use History: Occasional Past Drug Use History: None Reported - Past Family History Mother History Unknown: Yes Additional Family Medical History / Comment(s): myasthenia gravis Sister(s) History Unknown: Yes Additional Family Medical History / Comment(s): phlebitis Brother(s) Family Medical History: Cancer Daughter(s) Family Medical History: Osteoarthritis (OA) Son(s) Family Medical History: Unable to Obtain General Exam Limitations: no limitations General appearance: alert Head exam: Present: normocephalic Eye exam: Present: normal appearance Neck exam: Present: normal inspection Respiratory exam: Present: normal lung sounds bilaterally, other (Tachypnea) Cardiovascular Exam: Present: regular rate, normal rhythm, other (All lower extremity pulses are confirmed with Doppler) Expanded Peripheral pulses: 1+: Posterior Tibialis (R), Posterior Tibialis (L), Dorsalis Pedis (R), Dorsalis Pedis (L), 2+: Femoral (R), Femoral (L) GI/Abdominal exam: Present: soft. Absent: tenderness Extremities exam: Present: calf tenderness (Mild bilateral), other (Left second toe black and necrotic appearance. No sensation. No Refill. Left third and fourth toes with surgical pins in place. Otherwise good sensation and cap refi ll. Tenderness.) Neurological exam: Present: alert Psychiatric exam: Present: normal affect, normal mood Skin exam: Present: normal color Course Vital Signs 08/18/22 08/18/22 08/18/22 11:47 12:02 12:54 Temperature 98.5 F Pulse Rate 74 78 60 Respiratory 36 H 18 18 Rate Blood Pressure 148/56 142/61 149/67 O2 Sat by Pulse 100 100 99 Oximetry EKG Findings - EKG Results: EKG: interpreted by ERMD, sinus rhythm, normal QRS, normal ST/T Medical Decision Making - Medical Decision Making Patient reevaluated and does appear somewhat improved. Patient and family updated on results and plan. Case was discussed with Dr. Ordaz, who will admit covering Dr. Tinoco. Consults will place with infectious disease as well as orthopedics. He also requests antibiotics, Rocephin and vancomycin - Lab Data Result diagrams: 08/18/22 12:33 08/18/22 12:33 Lab Results 08/18/22 08/18/22 08/18/22 Range/Units 12:33 12:33 12:33 WBC 6.6 (3.8-10.6) k/uL RBC 3.84 (3.80-5.40) m/uL Hgb 12.6 (11.4-16.0) gm/dL Hct 35.9 (34.0-46.0) % MCV 93.5 (80.0-100.0) fL MCH 32.7 (25.0-35.0) pg MCHC 35.0 (31.0-37.0) g/dL RDW 13.4 (11.5-15.5) % Plt Count 409 (150-450) k/uL MPV 7.6 Neutrophils % 78 % Lymphocytes % 12 % Monocytes % 6 % Eosinophils % 1 % Basophils % 0 % Neutrophils # 5.2 (1.3-7.7) k/uL Lymphocytes # 0.8 L (1.0-4.8) k/uL Monocytes # 0.4 (0-1.0) k/uL Eosinophils # 0.1 (0-0.7) k/uL Basophils # 0.0 (0-0.2) k/uL PT 11.9 (9.0-12.0) sec INR 1.1 (<1.2) APTT 29.9 (22.0-30.0) sec Sodium 129 L (137-145) mmol/L Potassium 3.6 (3.5-5.1) mmol/L Chloride 94 L (98-107) mmol/L Carbon Dioxide 24 (22-30) mmol/L Anion Gap 11 mmol/L BUN 6 L (7-17) mg/dL Creatinine 0.56 (0.52-1.04) mg/dL Est GFR (CKD-EPI)AfAm >90 (>60 ml/min/1.73 sqM) Est GFR (CKD-EPI)NonAf 85 (>60 ml/min/1.73 sqM) Glucose 115 H (74-99) mg/dL Plasma Lactic Acid [place] (0.7-2.0) mmol/L Calcium 9.2 (8.4-10.2) mg/dL Total Bilirubin 0.7 (0.2-1.3) mg/dL AST 37 H (14-36) U/L ALT 22 (4-34) U/L Alkaline Phosphatase 79 (38-126) U/L Troponin I (0.000-0.034) ng/mL NT-Pro-B Natriuret Pep pg/mL Total Protein 6.7 (6.3-8.2) g/dL Albumin 3.7 (3.5-5.0) g/dL Coronavirus (PCR) (Not Detectd) Influenza Type A RNA (Not Detectd) Influenza Type B (PCR) (Not Detectd) 08/18/22 08/18/22 08/18/22 Range/Units 12:33 12:33 12:33 WBC (3.8-10.6) k/uL RBC (3.80-5.40) m/uL Hgb (11.4-16.0) gm/dL Hct (34.0-46.0) % MCV (80.0-100.0) fL MCH (25.0-35.0) pg MCHC (31.0-37.0) g/dL RDW (11.5-15.5) % Plt Count (150-450) k/uL MPV Neutrophils % % Lymphocytes % % Monocytes % % Eosinophils % % Basophils % % Neutrophils # (1.3-7.7) k/uL Lymphocytes # (1.0-4.8) k/uL Monocytes # (0-1.0) k/uL Eosinophils # (0-0.7) k/uL Basophils # (0-0.2) k/uL PT (9.0-12.0) sec INR (<1.2) APTT (22.0-30.0) sec Sodium (137-145) mmol/L Potassium (3.5-5.1) mmol/L Chloride (98-107) mmol/L Carbon Dioxide (22-30) mmol/L Anion Gap mmol/L BUN (7-17) mg/dL Creatinine (0.52-1.04) mg/dL Est GFR (CKD-EPI)AfAm (>60 ml/min/1.73 sqM) Est GFR (CKD-EPI)NonAf (>60 ml/min/1.73 sqM) Glucose (74-99) mg/dL Plasma Lactic Acid [place] 1.2 (0.7-2.0) mmol/L Calcium (8.4-10.2) mg/dL Total Bilirubin (0.2-1.3) mg/dL AST (14-36) U/L ALT (4-34) U/L Alkaline Phosphatase (38-126) U/L Troponin I <0.012 (0.000-0.034) ng/mL NT-Pro-B Natriuret Pep 2090 pg/mL Total Protein (6.3-8.2) g/dL Albumin (3.5-5.0) g/dL Coronavirus (PCR) (Not Detectd) Influenza Type A RNA (Not Detectd) Influenza Type B (PCR) (Not Detectd) 08/18/22 08/18/22 Range/Units 12:33 12:33 WBC (3.8-10.6) k/uL RBC (3.80-5.40) m/uL Hgb (11.4-16.0) gm/dL Hct (34.0-46.0) % MCV (80.0-100.0) fL MCH (25.0-35.0) pg MCHC (31.0-37.0) g/dL RDW (11.5-15.5) % Plt Count (150-450) k/uL MPV Neutrophils % % Lymphocytes % % Monocytes % % Eosinophils % % Basophils % % Neutrophils # (1.3-7.7) k/uL Lymphocytes # (1.0-4.8) k/uL Monocytes # (0-1.0) k/uL Eosinophils # (0-0.7) k/uL Basophils # (0-0.2) k/uL PT (9.0-12.0) sec INR (<1.2) APTT (22.0-30.0) sec Sodium (137-145) mmol/L Potassium (3.5-5.1) mmol/L Chloride (98-107) mmol/L Carbon Dioxide (22-30) mmol/L Anion Gap mmol/L BUN (7-17) mg/dL Creatinine (0.52-1.04) mg/dL Est GFR (CKD-EPI)AfAm (>60 ml/min/1.73 sqM) Est GFR (CKD-EPI)NonAf (>60 ml/min/1.73 sqM) Glucose (74-99) mg/dL Plasma Lactic Acid [place] (0.7-2.0) mmol/L Calcium (8.4-10.2) mg/dL Total Bilirubin (0.2-1.3) mg/dL AST (14-36) U/L ALT (4-34) U/L Alkaline Phosphatase (38-126) U/L Troponin I (0.000-0.034) ng/mL NT-Pro-B Natriuret Pep pg/mL Total Protein (6.3-8.2) g/dL Albumin (3.5-5.0) g/dL Coronavirus (PCR) Not Detected (Not Detectd) Influenza Type A RNA Not Detected (Not Detectd) Influenza Type B (PCR) Not Detected (Not Detectd) - Radiology Data Radiology results: report reviewed (No pulmonary embolism. Mild cardiomegaly with pulmonary venous congestion and trace effusions.) Interpreted by me: Chest x-ray shows cardiomegaly and mild vascular congestion. Foot x-ray shows postsurgical changes secondary fourth toe. Disposition Clinical Impression: Necrosis of toe, CHF (congestive heart failure) Disposition: ADMITTED IP TO THIS HOSP Condition: Serious Is patient prescribed a controlled substance at d/c from ED?: No Referrals: Grupo Tinoco MD [Primary Care Provider] - 1-2 days Time of Disposition: 14:30
[2022-08-18] MEDS ORDERED: HYDROmorphone 1 MG/ML 1 ML SYRINGE IVP STA (12:38)
[2022-08-18] MEDS ORDERED: ONDANSETRON 4 MG/2 ML VIAL IVP STA (12:38)
[2022-08-18 12:53] LABS: Basophils % (A) 0 %; Eosinophils # (A) 0.1 k/uL (0-0.7); Eosinophils % (A) 1 %; HCT 35.9 % (34.0-46.0); HGB 12.6 gm/dL (11.4-16.0); Lymphocytes # (A) 0.8 k/uL (1.0-4.8); Lymphocytes % (A) 12 %; MCH 32.7 pg (25.0-35.0); MCV 93.5 fL (80.0-100.0); Mean Platelet Volume 7.6; Monocytes # (A) 0.4 k/uL (0-1.0); Monocytes % (A) 6 %; Neutrophils # (A) 5.2 k/uL (1.3-7.7); Neutrophils % (A) 78 %; Platelet Count 409 k/uL (150-450); RBC 3.84 m/uL (3.80-5.40); RDW 13.4 % (11.5-15.5); WBC 6.6 k/uL (3.8-10.6)
[2022-08-18 13:17] LABS: ALT 22 U/L (4-34); AST 37 U/L (14-36); African American GFR (CKD) >90 (>60 ml/min/1.73 sqM); Albumin 3.7 g/dL (3.5-5.0); Alkaline Phosphatase 79 U/L (38-126); Anion Gap 11 mmol/L; Blood Urea Nitrogen 6 mg/dL (7-17); Calcium 9.2 mg/dL (8.4-10.2); Carbon Dioxide 24 mmol/L (22-30); Chloride 94 mmol/L (98-107); Glucose 115 mg/dL (74-99); Non-African American GFR(CKD) 85 (>60 ml/min/1.73 sqM); Potassium 3.6 mmol/L (3.5-5.1); Sodium 129 mmol/L (137-145); Total Bilirubin 0.7 mg/dL (0.2-1.3); Total Protein 6.7 g/dL (6.3-8.2)
--- NOTE | 2022-08-18 13:23 | XR ---
EXAMINATION TYPE: XR foot complete LT DATE OF EXAM: 08/18/2022 12:54 PM INDICATION: Patient age:Female; 87 years old; Reason for study: Necrotic second toe; PHH. COMPARISON: None TECHNIQUE: The Left foot was examined in the AP and lateral projections. FINDINGS: There 2 Kristy wires present, 1 in both the third and fourth digit phalanges. There is poor visual ization of the fourth digit middle phalanx which could be due to erosion or surgically absent. Also, there appears to be erosive changes to the surgical site of the fourth digit proximal phalanx. There is postsurgical changes to the second, third and fourth digit proximal phalanges. No evidence for acu te fracture. Soft tissues suggest swelling of the third and fourth digit. IMPRESSION: Erosion versus surgically absent fourth digit middle phalanx as well as erosive changes to the amputa tion site of the fourth digit proximal phalanx concerning for osteomyelitis.
--- NOTE | 2022-08-18 13:27 | XR ---
EXAMINATION TYPE: XR chest 2V DATE OF EXAM: 08/18/2022 1:09 PM COMPARISON: Chest radiographs from 06/19/2022 TECHNIQUE: XR chest 2V Frontal and lateral views of the chest. CLINICAL INDICATION:Female, 87 years old with history of difficulty breathing; FINDINGS: Lungs/Pleura: There is no evidence of pleural effusion, focal consolidation, or pneumothorax. Pulmonary vascularity: Pulmonary vascular congestion. Heart/mediastinum: Cardiomediastinal silhouette is enlarged and stable. Musculoskeletal: No acute osseous pathology. IMPRESSION: Cardiomegaly and mild pulmonary vascular congestion. Correlate with BNP for congestive heart failure.
[2022-08-18 13:29] LABS: INR 1.1 (<1.2); Partial Thromboplastin Time 29.9 sec (22.0-30.0); Prothrombin Time 11.9 sec (9.0-12.0)
--- NOTE | 2022-08-18 13:50 | CT ---
EXAMINATION TYPE: CT angio chest CT DLP: 264.2 mGycm, Automated exposure control for dose reduction was used. DATE OF EXAM: 08/18/2022 1:42 PM COMPARISON: Chest radiograph from same day. CLINICAL INDICATION:Female, 87 years old with history of dyspnea; TECHNIQUE/CONTRAST: CTA scan of the thorax is performed with IV Contrast, patient injected with 50 mL of Isovue 370, pulm onary embolism protocol. MIP images are created and reviewed. FINDINGS: Pulmonary Artery: There is no evidence for a filling defect within the pulmonary vasculature to sugge st acute pulmonary embolism. The pulmonary artery is of normal size. Lungs/Pleura: Trace bilateral pleural effusions are present. There is atelectasis changes in the lung s. Low lung volumes are present. First thickening of the intralobular septa. Airway: Large numbers mildly enlarged for size. Heart: Enlarged mildly enlarged for size. There is coronary artery atherosclerosis. Vasculature: No evidence of aortic aneurysm. Atherosclerosis of the arterial vasculature. Mediastinum: No gross evidence of adenopathy. Musculoskeletal: No acute osseous abnormalities Soft Tissues: Unremarkable. Lower neck: No significant findings. Upper Abdomen: Gallbladder is distended up to 8.5 cm. Bilateral renal cysts. Hepatic cyst noted. IMPRESSION: 1. No evidence of pulmonary embolism. 2. Mild cardiomegaly, pulmonary vascular congestion with trace bilateral pleural effusions correlate with serum BNP for congestive heart failure.
[2022-08-18] MEDS ORDERED: VANCOMYCIN IV PER PHARMACY 1 EACH MISC MISCELLANE PRN (14:36)
[2022-08-18] MEDS ORDERED: ASPIRIN 325 MG TAB PO STA (14:37)
[2022-08-18] MEDS ORDERED: MAG HYDROX/AL HYDROX/SIMETH 30 ML CUP PO PRN (14:38)
[2022-08-18] MEDS ORDERED: CALCIUM CARBONATE 500 MG CHEWABLE PO PRN (14:38)
[2022-08-18] MEDS ORDERED: NALOXONE 0.4 MG/ML 1 ML VIAL IV PRN (14:38)
[2022-08-18] MEDS ORDERED: MELATONIN 3 MG TABLET PO PRN (14:38)
[2022-08-18] MEDS: NITROGLYCERIN OINT 1 INCH/GM PACKET TOPICAL SCH ×3 (15:04→20:02)
[2022-08-18] MEDS: FUROSEMIDE 10 MG/ML 4 ML VIAL IV SCH (15:13)
[2022-08-18] MEDS ORDERED: VANCOMYCIN 1,250 MG in SODIUM CHLORIDE 0.9% 250 ML IVPB ONE (15:15)
[2022-08-18] MEDS: HYDROmorphone 0.5 MG/0.5 ML SYRINGE IVP PRN (19:37)
[2022-08-19] MEDS: HYDROmorphone 0.5 MG/0.5 ML SYRINGE IVP PRN ×3 (01:56→17:42)
[2022-08-19] MEDS: FUROSEMIDE 10 MG/ML 4 ML VIAL IV SCH ×2 (01:56→15:05)
--- NOTE | 2022-08-19 08:59 | P.CONS ---
History of Present Illness - Reason for Consult Consult date: 08/18/22 - History of Present Illness Patient is a 87-year-old female who did have a hammertoe surgery done at the [facility] to the left foot about 3 weeks ago patient mention at the left second toe started to turn purple few days after the surgery and subsequent noticed to become more discolored and has becoming black over the last 1 week patient be complaining of pain to the left foot toes more of a dull aching 5-6 out of 10 no radiation no significant surrounding swelling redness or any foul-smelling drainage and the patient denies high-grade fever on presentation the hospital the patient was afebrile patient did have a normal white count kidney function has been normal influenza and COVID testing was negative patient did have a x-ray of the foot which shows erosion versus surgically absent fourth digit middle phalanx as well as erosive changes to the amputation site of the fourth digit proximal phalanx concerning for osteomyelitis patient did have a CT angiogram of the chest negative for PE mild cardiomegaly pulmonary vascular congestion and bilateral effusion patient was started on Rocephin and vancomycin infectious disease was consulted for further management of antibiotic therapy Past Medical History Past Medical History: Atrial Fibrillation, Cancer, Eye Disorder, Hearing Disorder / Deafness, Hyperlipidemia, Hypertension, Osteoarthritis (OA) Additional Past Medical History / Comment(s): 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 History of Any Multi-Drug Resistant Organisms: None Reported Past Surgical History: Joint Replacement, Orthopedic Surgery Additional Past Surgical History / Comment(s): left knee replacements, left femur fx repair with hardware, BILATERAL CATARACTS, BILATERAL EYELID SURGERY, COLONOSCOPY, right hip replacement, hammer toe fixed on left foot. Past Anesthesia/Blood Transfusion Reactions: Previous Problems w/ Anesthesia, Motion Sickness Additional Past Anesthesia/Blood Transfusion Reaction / Comm: Hard time waking from anesthesia. Past Psychological History: No Psychological Hx Reported Smoking Status: Former smoker Past Alcohol Use History: Occasional Past Drug Use History: None Reported - Past Family History Mother History Unknown: Yes Additional Family Medical History / Comment(s): myasthenia gravis Sister(s) History Unknown: Yes Additional Family Medical History / Comment(s): phlebitis Brother(s) Family Medical History: Cancer Daughter(s) Family Medical History: Osteoarthritis (OA) Son(s) Family Medical History: Unable to Obtain Medications and Allergies Home Medications Medication Instructions Recorded Confirmed Type Atorvastatin [Lipitor] 10 mg PO HS 07/10/18 08/18/22 History Calcium Carbonate/Vitamin D3 1 tab PO BID 07/10/18 08/18/22 History [Calcium 500-Vit D3 5 Mcg (200 Iu)] Citalopram Hydrobromide [CeleXA] 20 mg PO DAILY 07/10/18 08/18/22 History Loratadine [Claritin] 10 mg PO DAILY 07/10/18 08/18/22 History Multivitamins, Thera [Multivitamin 1 tab PO DAILY 07/10/18 08/18/22 History (formulary)] Vit C/E/Zn/Coppr/Lutein/Zeaxan 1 cap PO BID 07/10/18 08/18/22 History [Preservision Areds 2 Softgel] Ferrous Sulfate [Feosol] 325 mg PO DAILY #30 tab 07/18/18 08/18/22 Rx Apixaban [Eliquis] 5 mg PO BID #60 tab 03/31/19 08/18/22 Rx Chlorthalidone 25 mg PO DAILY 04/23/20 08/18/22 History Losartan Potassium 100 mg PO HS 06/19/22 08/18/22 History Metoprolol Tartrate [Lopressor] 12.5 mg PO BID #60 06/21/22 08/18/22 Rx amLODIPine [Norvasc] 10 mg PO DAILY #30 tab 06/21/22 08/18/22 Rx Acetaminophen-Codeine 300-30mg 1 tab PO Q6H PRN 08/18/22 08/18/22 History [Tylenol w/codeine #3] Amoxic-Pot Clav 500-125 mg 1 tab PO Q12HR 08/18/22 08/18/22 History [Augmentin 500-125 mg] HYDROcodone/APAP 10-325MG [[place] 1 tab PO Q6HR PRN 08/18/22 08/18/22 History 10-325] Allergies Allergy/AdvReac Type Severity Reaction Status Date / Time gluten Allergy Nausea & Verified 08/18/22 14:37 Vomiting & Diarrhea Physical Exam Vitals: Vital Signs Temp Pulse Resp BP Pulse Ox 08/18/22 15:18 74 18 08/18/22 15:00 98.4 F 71 18 127/56 98 08/18/22 14:02 75 18 125/53 97 08/18/22 13:02 76 20 127/64 96 08/18/22 12:54 60 18 149/67 99 08/18/22 12:02 78 18 142/61 100 08/18/22 11:47 98.5 F 74 36 H 148/56 100 Intake and Output 08/18/22 08/18/22 08/18/22 06:59 14:59 22:59 Other: Weight 68.039 kg Results CBC & Chem 7: 08/18/22 12:33 08/18/22 12:33 Labs: Abnormal Lab Results - Last 24 Hours (Table) 08/18/22 08/18/22 Range/Units 12:33 12:33 Lymphocytes # 0.8 L (1.0-4.8) k/uL Sodium 129 L (137-145) mmol/L Chloride 94 L (98-107) mmol/L BUN 6 L (7-17) mg/dL Glucose 115 H (74-99) mg/dL AST 37 H (14-36) U/L Assessment and Plan Plan: 1patient with dry gangrene to the left second toe in this patient who did have a hammertoe deformity surgery completed about 3 weeks ago patient is currently afebrile white count is normal clinically doubt secondary infectious etiology. 2patient will need vascular surgery evaluation for vascular work-up and possible amputation of the left second toe. 3May continue with the current antibiotic form of Rocephin and vancomycin while waiting for condition stabilized and culture to finalize. We will follow on clinical condition and cultures to further adjust medication if needed Thank you for this consultation will follow this patient along with you Time with Patient: Greater than 30
[2022-08-19 09:26] LABS: Albumin 3.2 g/dL (3.5-5.0); Calcium 8.2 mg/dL (8.4-10.2); Potassium 3.2 mmol/L (3.5-5.1); Total Bilirubin 0.5 mg/dL (0.2-1.3); Total Protein 5.8 g/dL (6.3-8.2)
[2022-08-19] MEDS: NITROGLYCERIN OINT 1 INCH/GM PACKET TOPICAL SCH ×4 (10:01→20:03)
[2022-08-19] MEDS: ASPIRIN 325 MG TAB PO SCH (10:02)
--- NOTE | 2022-08-19 11:07 | P.CNOR ---
History of Present Illness - HPI Consult date: 08/19/22 Requesting physician: Joshua Molina Consult reason: other (Necrotic toe) History of present illness: Patient is an 87-year-old male who presented the emergency department at [facility] with left foot/toe pain and shortness of breath. Patient did have hammer toe surgery performed about 3 weeks ago on the third and fourth digits in her left foot at [facility]. Patient did follow with her foot/ankle surgeon over the past few weeks. Patient says that the left second toe began to turn purple several days after the surgery was performed and began to get darker in color and about the last week she noticed the toe began to change to black in color. Patient describes the pain in the left total/foot as aching and rates it as 6/10 currently. Patient denies any drainage/smell. Patient denies chest pain, fever, shortness breath, nausea, vomiting, change in vision, loss of bowel/bladder control. 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 History of Any Multi-Drug Resistant Organisms: None Reported Past Surgical History: Joint Replacement, Orthopedic Surgery Additional Past Surgical History / Comment(s): left knee replacements, left femur fx repair with hardware, BILATERAL CATARACTS, BILATERAL EYELID SURGERY, COLONOSCOPY, right hip replacement, hammer toe fixed on left foot. Past Anesthesia/Blood Transfusion Reactions: Previous Problems w/ Anesthesia, Motion Sickness Additional Past Anesthesia/Blood Transfusion Reaction / Comm: Hard time waking from anesthesia. Past Psychological History: No Psychological Hx Reported Smoking Status: Former smoker Past Alcohol Use History: Occasional Past Drug Use History: None Reported - Past Family History Mother History Unknown: Yes Additional Family Medical History / Comment(s): myasthenia gravis Sister(s) History Unknown: Yes Additional Family Medical History / Comment(s): phlebitis Brother(s) Family Medical History: Cancer Daughter(s) Family Medical History: Osteoarthritis (OA) Son(s) Family Medical History: Unable to Obtain Medications and Allergies Home Medications Medication Instructions Recorded Confirmed Type Atorvastatin [Lipitor] 10 mg PO HS 07/10/18 08/18/22 History Calcium Carbonate/Vitamin D3 1 tab PO BID 07/10/18 08/18/22 History [Calcium 500-Vit D3 5 Mcg (200 Iu)] Citalopram Hydrobromide [CeleXA] 20 mg PO DAILY 07/10/18 08/18/22 History Loratadine [Claritin] 10 mg PO DAILY 07/10/18 08/18/22 History Multivitamins, Thera [Multivitamin 1 tab PO DAILY 07/10/18 08/18/22 History (formulary)] Vit C/E/Zn/Coppr/Lutein/Zeaxan 1 cap PO BID 07/10/18 08/18/22 History [Preservision Areds 2 Softgel] Ferrous Sulfate [Feosol] 325 mg PO DAILY #30 tab 07/18/18 08/18/22 Rx Apixaban [Eliquis] 5 mg PO BID #60 tab 03/31/19 08/18/22 Rx Chlorthalidone 25 mg PO DAILY 04/23/20 08/18/22 History Losartan Potassium 100 mg PO HS 06/19/22 08/18/22 History Metoprolol Tartrate [Lopressor] 12.5 mg PO BID #60 06/21/22 08/18/22 Rx amLODIPine [Norvasc] 10 mg PO DAILY #30 tab 06/21/22 08/18/22 Rx Acetaminophen-Codeine 300-30mg 1 tab PO Q6H PRN 08/18/22 08/18/22 History [Tylenol w/codeine #3] Amoxic-Pot Clav 500-125 mg 1 tab PO Q12HR 08/18/22 08/18/22 History [Augmentin 500-125 mg] HYDROcodone/APAP 10-325MG [[place] 1 tab PO Q6HR PRN 08/18/22 08/18/22 History 10-325] Allergies Allergy/AdvReac Type Severity Reaction Status Date / Time gluten Allergy Nausea & Verified 08/18/22 14:37 Vomiting & Diarrhea Physical Examination Inspection: There is some swelling in digits 2 through 4 on the left foot. The second digit does appear necrotic at this time and is black in color. Digits 3 and 4 on the left foot are somewhat discolored at this time there is ecchymosis present in these digits. Negative for any drainage/foul smell. There are pins present at the end of digits 3 and 4 on the left foot. Sensation: Patient does not have any sensation to the second digit on the left foot. Patient does have sensation in digits 3 and 4 on the left foot, however it is somewhat numb. Patient has full sensation throughout rest of upper and lower extremities at this time. Palpation: Patient does have moderate tenderness to palpation over digits 2 through 4 on the left foot. Some of this tenderness to patient does extend proximally to the mid foot. Nontender to palpation throughout rest of exam Range of motion: Patient does have full range of motion bilateral upper extremities on exam. Patient does have full range of motion in bilateral lower extremities on exam. There is limited range of motion in digits 2 through 4 on the left foot due to surgery and pain Motor: 5/5 in all major motor groups in bilateral upper and lower extremities on exam Neurovascular status: Capillary refill is delayed in digits 2 through 4 on the left foot. Dorsalis pedis pulses are weak on exam bilaterally. Pedal pulses intact bilaterally. Special tests: Negative Homans bilaterally. Results - Labs Labs: Abnormal Lab Results - Last 24 Hours (Table) 08/18/22 08/18/22 08/19/22 Range/Units 12:33 12:33 07:34 Lymphocytes # 0.8 L (1.0-4.8) k/uL Sodium 129 L 129 L (137-145) mmol/L Potassium 3.2 L (3.5-5.1) mmol/L Chloride 94 L 90 L (98-107) mmol/L BUN 6 L (7-17) mg/dL Glucose 115 H 131 H (74-99) mg/dL Calcium 8.2 L (8.4-10.2) mg/dL AST 37 H (14-36) U/L Total Protein 5.8 L (6.3-8.2) g/dL Albumin 3.2 L (3.5-5.0) g/dL H & H 08/18/22 Range/Units 12:33 Hgb 12.6 (11.4-16.0) gm/dL Hct 35.9 (34.0-46.0) % Coagulation 08/18/22 Range/Units 12:33 INR 1.1 (<1.2) Result Diagrams: 08/18/22 12:33 08/19/22 07:34 - Diagnostic results Ankle/Foot x-ray: report reviewed, image reviewed (K wires are present in digits 3 and 4 of the left foot. Fourth digit middle phalanx is not appreciated on exam. Erosive changes to the proximal phalanx of the fourth digit of the left foot. There is also evident soft tissue swelling on exam.) Assessment and Plan Assessment: 1. Gangrenous toe left foot 2nd phalanx; recent history of hammertoe surgery digits 3 and 4 left foot Plan: 1. Gangrenous toe left foot 2nd phalanx; recent history of hammertoe surgery digits 3 and 4 left foot - patient stable at bedside this morning. X-ray of the left foot have been reviewed. xray demonstrates K wires present in digits 3 and 4 of the left foot. We do recommend patient see her foot/ankle surgeon that performed surgery 3 weeks ago. Our group does not have foot/ankle surgeon youth development professional. Patient may weight-bear as tolerated only through the heel on the left foot. Vascular has been consulted for necrotic toe left foot. Pain medication as needed. From our standpoint patient is stable for discharge. At this time we are signing off. Please not hesitate to contact us for any further questions. 2. Appreciate medical management 3. Pain management - Tylenol 4. DVT prophylaxis - aspirin 5. GI prophylaxis - Maalox; tums 6. PT/OT - patient may weight-bear only through the left heel. WBAT RLE 7. Appreciate consult Time with Patient: Less than 30
[2022-08-19] MEDS: VANCOMYCIN 1,250 MG in SODIUM CHLORIDE 0.9% 250 ML IVPB SCH (11:35)
[2022-08-19 11:54] VITALS: BMI 25.9
--- NOTE | 2022-08-19 12:50 | P.CRDCN ---
History of Present Illness History of present illness: HISTORY OF PRESENTING ILLNESS Patient is pleasant 87-year-old female with history of paroxysmal A. fib, hypertension, hyperlipidemia, valvular heart disease and recent hammertoe surgery with gangrenous foot who presents secondary to increased dyspnea as well as black toe or last 2 weeks. She states she did have surgery approximately 3 weeks ago for a hammertoe over then started noticing discoloration of to the toes next to her surgery and states she had follow with spinneret person who stated this would likely get better on its own in turn more pink. Unfortunately now it is black and necrotic. Denies any actual pus or warmth. Additionally she started feeling significantly short of breath yesterday. Imaging shows bilateral pulmonary vascular congestion and pleural effusions. She was given IV Lasix and feels much better. ProBNP elevated at approximately 2000. Additionally hyponatremic at 129. Troponin negative 1. Denies any chest pain or pressure. EKG shows sinus rhythm with no significant ST or T-wave abnormalities. REVIEW OF SYSTEMS At the time of my exam: CONSTITUTIONAL: Denies fever or chills. CARDIOVASCULAR: Denies chest pain, +shortness of breath, no PND or palpitations. RESPIRATORY: Denies cough. GASTROINTESTINAL: Denies abdominal pain, diarrhea, constipation, nausea or vomiting. MUSCULOSKELETAL: Denies myalgias. NEUROLOGIC: Denies numbness, tingling or weakness. ENDOCRINE: Denies fatigue, weight change, polydipsia or polyurina. GENITOURINARY: Denies burning, hematuria or urgency with micturation. HEMATOLOGIC: Denies history of anemia or bleeding. PHYSICAL EXAMINATION Vital signs reviewed. CONSTITUTIONAL: No apparent distress. HEENT: Head is normocephalic. Pupils are equal, round. Sclerae anicteric. Mucous membranes of the mouth are moist. No JVD. No carotid bruit. CHEST EXAMINATION: +crackles at bases HEART EXAMINATION: Regular rate and rhythm. S1, S2 heard. No murmurs, gallops or rub. ABDOMEN: Soft, nontender. Positive bowel sounds. EXTREMITIES: 2+ peripheral pulses, no lower extremity edema and no calf tenderness. NEUROLOGIC EXAMINATION: Patient is awake, alert and oriented x3. ASSESSMENT 1. Acute on chronic diastolic heart failure 2. Paroxysmal A. fib currently sinus rhythm 3. Necrotic left toe partially related to recent surgery 4. Status post recent hammertoe surgery 5. Hypertension 6. Hyperlipidemia PLAN Patient's shortness of breath consistent with heart failure. Continue with current diuretics with Lasix if she has been significantly improving. Check 2-D echo. Possibly transition to oral diuretics 24-48 hours. Further management of left toe gangrene per primary. Past Medical History Past Medical History: Atrial Fibrillation, Cancer, Eye Disorder, Hearing Disor ariella / Deafness, Hyperlipidemia, Hypertension, Osteoarthritis (OA) Additional Past Medical History / Comment(s): 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 History of Any Multi-Drug Resistant Organisms: None Reported Past Surgical History: Joint Replacement, Orthopedic Surgery Additional Past Surgical History / Comment(s): left knee replacements, left femur fx repair with hardware, BILATERAL CATARACTS, BILATERAL EYELID SURGERY, COLONOSCOPY, right hip replacement, hammer toe fixed on left foot. Past Anesthesia/Blood Transfusion Reactions: Previous Problems w/ Anesthesia, Motion Sickness Additional Past Anesthesia/Blood Transfusion Reaction / Comment(s): Hard time waking from anesthesia. Past Psychological History: No Psychological Hx Reported Smoking Status: Former smoker Past Alcohol Use History: Occasional Past Drug Use History: None Reported - Past Family History Mother History Unknown: Yes Additional Family Medical History / Comment(s): myasthenia gravis Sister(s) History Unknown: Yes Additional Family Medical History / Comment(s): phlebitis Brother(s) Family Medical History: Cancer Daughter(s) Family Medical History: Osteoarthritis (OA) Son(s) Family Medical History: Unable to Obtain Medications and Allergies Home Medications Medication Instructions Recorded Confirmed Type Atorvastatin [Lipitor] 10 mg PO HS 07/10/18 08/18/22 History Calcium Carbonate/Vitamin D3 1 tab PO BID 07/10/18 08/18/22 History [Calcium 500-Vit D3 5 Mcg (200 Iu)] Citalopram Hydrobromide [CeleXA] 20 mg PO DAILY 07/10/18 08/18/22 History Loratadine [Claritin] 10 mg PO DAILY 07/10/18 08/18/22 History Multivitamins, Thera [Multivitamin 1 tab PO DAILY 07/10/18 08/18/22 History (formulary)] Vit C/E/Zn/Coppr/Lutein/Zeaxan 1 cap PO BID 07/10/18 08/18/22 History [Preservision Areds 2 Softgel] Ferrous Sulfate [Feosol] 325 mg PO DAILY #30 tab 07/18/18 08/18/22 Rx Apixaban [Eliquis] 5 mg PO BID #60 tab 03/31/19 08/18/22 Rx Chlorthalidone 25 mg PO DAILY 04/23/20 08/18/22 History Losartan Potassium 100 mg PO HS 06/19/22 08/18/22 History Metoprolol Tartrate [Lopressor] 12.5 mg PO BID #60 06/21/22 08/18/22 Rx amLODIPine [Norvasc] 10 mg PO DAILY #30 tab 06/21/22 08/18/22 Rx Acetaminophen-Codeine 300-30mg 1 tab PO Q6H PRN 08/18/22 08/18/22 History [Tylenol w/codeine #3] Amoxic-Pot Clav 500-125 mg 1 tab PO Q12HR 08/18/22 08/18/22 History [Augmentin 500-125 mg] HYDROcodone/APAP 10-325MG [[place] 1 tab PO Q6HR PRN 08/18/22 08/18/22 History 10-325] Allergies Allergy/AdvReac Type Severity Reaction Status Date / Time gluten Allergy Nausea & Verified 08/18/22 14:37 Vomiting & Diarrhea Physical Exam Vitals: Vital Signs Temp Pulse Pulse Resp BP BP Pulse Ox 08/19/22 11:32 98.5 F 86 18 141/66 96 08/19/22 07:45 96.7 F L 89 16 138/62 89 L 08/19/22 04:00 86 16 145/65 93 L 08/19/22 00:00 73 16 116/57 95 08/18/22 20:00 97.7 F 78 16 133/42 93 L 08/18/22 15:50 98.8 F 80 20 149/70 97 08/18/22 15:18 74 18 08/18/22 15:00 98.4 F 71 18 127/56 98 08/18/22 14:02 75 18 125/53 97 08/18/22 13:02 76 20 127/64 96 08/18/22 12:54 60 18 149/67 99 Intake and Output 08/18/22 08/19/22 08/19/22 22:59 06:59 14:59 Intake Total 648 480 Balance 648 480 Intake: Intake, IV Titration 50 Amount cefTRIAXone 1 gm In 50 Sodium Chloride 0.9% 50 ml @ 100 mls/hr IVPB Q12HR [facility] Rx#:[id number] Oral 598 480 Other: Voiding Method Bedside Commode Bedside Commode Bedside Commode # Voids 1 2 2 Weight 68.039 kg 66.5 kg 66.5 kg Results 08/18/22 12:33 08/19/22 07:34 Cardiac Enzymes 08/18/22 08/18/22 08/19/22 Range/Units 12:33 12:33 07:34 AST 37 H 31 (14-36) U/L Troponin I <0.012 (0.000-0.034) ng/mL Coagulation 08/18/22 Range/Units 12:33 PT 11.9 (9.0-12.0) sec APTT 29.9 (22.0-30.0) sec CBC 08/18/22 Range/Units 12:33 WBC 6.6 (3.8-10.6) k/uL RBC 3.84 (3.80-5.40) m/uL Hgb 12.6 (11.4-16.0) gm/dL Hct 35.9 (34.0-46.0) % Plt Count 409 (150-450) k/uL Comprehensive Metabolic Panel 08/18/22 08/19/22 Range/Units 12:33 07:34 Sodium 129 L 129 L (137-145) mmol/L Potassium 3.6 3.2 L (3.5-5.1) mmol/L Chloride 94 L 90 L (98-107) mmol/L Carbon Dioxide 24 30 (22-30) mmol/L BUN 6 L 7 (7-17) mg/dL Creatinine 0.56 0.75 (0.52-1.04) mg/dL Glucose 115 H 131 H (74-99) mg/dL Calcium 9.2 8.2 L (8.4-10.2) mg/dL AST 37 H 31 (14-36) U/L ALT 22 19 (4-34) U/L Alkaline Phosphatase 79 70 (38-126) U/L Total Protein 6.7 5.8 L (6.3-8.2) g/dL Albumin 3.7 3.2 L (3.5-5.0) g/dL Current Medications Generic Name Dose Route Start Last Admin Trade Name Freq PRN Reason Stop Dose Admin Acetaminophen 650 mg 08/18/22 14:38 Acetaminophen Tab 325 Mg Tab PO Q6HR PRN Mild Pain or Fever > 100.5 Al Hydroxide/Mg Hydroxide 15 ml 08/18/22 14:38 Mag Hydrox/Al Hydrox/Simeth 30 Ml Cup PO Q6HR PRN Indigestion Aspirin 325 mg 08/19/22 09:00 08/19/22 10:02 Aspirin 325 Mg Tab PO 325 mg DAILY CRISSY Administration Calcium Carbonate/Glycine 1,000 mg 08/18/22 14:38 Calcium Carbonate 500 Mg Chewable PO Q4HR PRN Dyspepsia Furosemide 20 mg 08/18/22 14:45 08/19/22 01:56 Furosemide 10 Mg/Ml 4 Ml Vial IV 20 mg Q12H CRISSY Administration Hydromorphone HCl 0.5 mg 08/18/22 18:18 08/19/22 10:01 Hydromorphone 0.5 Mg/0.5 Ml Syringe IVP 0.5 mg Q4HR PRN Administration Pain Ceftriaxone Sodium 1 gm/ 50 mls @ 100 mls/hr 08/18/22 14:45 08/19/22 10:01 Sodium Chloride IVPB 100 mls/hr Q12HR CRISSY Administration Protocol Vancomycin HCl 1,250 mg/ 250 mls @ 125 mls/hr 08/19/22 10:00 08/19/22 11:35 Sodium Chloride IVPB 125 mls/hr Q16H CRISSY Administration Melatonin 3 mg 08/18/22 14:38 Melatonin 3 Mg Tablet PO HS PRN Insomnia Naloxone HCl 0.2 mg 08/18/22 14:38 Naloxone 0.4 Mg/Ml 1 Ml Vial IV Q2M PRN Opioid Reversal Nitroglycerin 0.5 inch 08/18/22 14:45 08/19/22 10:01 Nitroglycerin Oint 1 Inch/Gm Packet TOPICAL Not Given QID [facility] Ondansetron HCl 4 mg 08/18/22 18:40 Ondansetron 4 Mg/2 Ml Vial IVP Q6HR PRN Nausea And Vomiting Intake and Output 08/18/22 08/19/22 08/19/22 22:59 06:59 14:59 Intake Total 648 480 Balance 648 480 Intake: Intake, IV Titration 50 Amount cefTRIAXone 1 gm In 50 Sodium Chloride 0.9% 50 ml @ 100 mls/hr IVPB Q12HR [facility] Rx#:[id number] Oral 168 034 Other: Voiding Method Bedside Commode Bedside Commode Bedside Commode # Voids 1 2 2 Weight 68.039 kg 66.5 kg 66.5 kg Patient Weight 08/20/22 06:59 Weight 66.5 kg 08/18/22 12:33 08/19/22 07:34
--- NOTE | 2022-08-19 14:17 | P.HPIM ---
History of Present Illness H&P Date: 08/19/22 History of present illness: Patient is pleasant 87-year-old female with history of paroxysmal A. fib, hypertension, hyperlipidemia, valvular heart disease and recent hammertoe surgery presented to [facility] with left foot/toe pain and shortness of breath. Patient did have hammer toe surgery performed about 3 weeks ago on the third and fourth digits in her left foot at [facility]. Patient did follow with her foot/ankle surgeon over the past few weeks. Patient says that the left second toe began to turn purple several days after the surgery was performed and began to get darker in color and about the last week she noticed the toe began to change to black in color. Patient describes the pain in the left total/foot as aching and rates it as 6/10 currently. Patient was worked up in the ER, x-ray of the foot showed erosion versus surgically absent fourth digit middle phalanx as well as erosive changes to the amputation site of the fourth digit proximal phalanx concerning for osteomyelitis. Chest x-ray showed pulmonary condition, CTA chest was negative for PE. Patient was started on IV antibiotics and IV diuretics and was admitted to hospitalist service REVIEW OF SYSTEMS: CONSTITUTIONAL: No fever, no malaise, no fatigue. HEENT: No recent visual problems or hearing problems. Denied any sore throat. CARDIOVASCULAR: No chest pain, orthopnea, PND, no palpitations, no syncope. PULMONARY: Complaining of shortness of breath. no cough, no hemoptysis. GASTROINTESTINAL: No diarrhea, no nausea, no vomiting, no abdominal pain. NEUROLOGICAL: No headaches, no weakness, no numbness. HEMATOLOGICAL: Denies any bleeding or petechiae. GENITOURINARY: Denies any burning micturition, frequency, or urgency. MUSCULOSKELETAL/RHEUMATOLOGICAL: Pain and left foot ENDOCRINE: Denies any polyuria or polydipsia. The rest of the 14-point review of systems is negative. PHYSICAL EXAMINATION: GENERAL: The patient is alert and oriented x3, not in any acute distress. Well developed, well nourished. HEENT: Pupils are round and equally reacting to light. EOMI. No scleral icterus. No conjunctival pallor. Normocephalic, atraumatic. No pharyngeal erythema. No thyromegaly. CARDIOVASCULAR: S1 and S2 present. No murmurs, rubs, or gallops. PULMONARY: Diminished breath sounds at the bases, bilateral crackles audible ABDOMEN: Soft, nontender, nondistended, normoactive bowel sounds. No palpable organomegaly. MUSCULOSKELETAL: No joint swelling or deformity. EXTREMITIES: Black necrotic toes seen left foot NEUROLOGICAL: Gross neurological examination did not reveal any focal deficits. SKIN: No rashes. Assessment and plan Dry gangrene of left second toe Acute on chronic diastolic heart failure Paroxysmal A. fib currently sinus rhythm Hypertension Hyperlipidemia PLAN Monitor vital signs Monitor CBC Follow-up on blood cultures Continue IV Rocephin and vancomycin Orthopedic consulted Continue IV Lasix. Cardiology consulted Consult vascular surgery Hold Eliquis for now as patient might be needing some debridement versus am putation Resume home meds Past Medical History Past Medical History: Atrial Fibrillation, Cancer, Eye Disorder, Hearing Disorde r / Deafness, Hyperlipidemia, Hypertension, Osteoarthritis (OA) Additional Past Medical History / Comment(s): 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 History of Any Multi-Drug Resistant Organisms: None Reported Past Surgical History: Joint Replacement, Orthopedic Surgery Additional Past Surgical History / Comment(s): left knee replacements, left femur fx repair with hardware, BILATERAL CATARACTS, BILATERAL EYELID SURGERY, COLONOSCOPY, right hip replacement, hammer toe fixed on left foot. Past Anesthesia/Blood Transfusion Reactions: Previous Problems w/ Anesthesia, Motion Sickness Additional Past Anesthesia/Blood Transfusion Reaction / Comment(s): Hard time waking from anesthesia. Past Psychological History: No Psychological Hx Reported Smoking Status: Former smoker Past Alcohol Use History: Occasional Past Drug Use History: None Reported - Past Family History Mother History Unknown: Yes Additional Family Medical History / Comment(s): myasthenia gravis Sister(s) History Unknown: Yes Additional Family Medical History / Comment(s): phlebitis Brother(s) Family Medical History: Cancer Daughter(s) Family Medical History: Osteoarthritis (OA) Son(s) Family Medical History: Unable to Obtain Medications and Allergies Home Medications Medication Instructions Recorded Confirmed Type Atorvastatin [Lipitor] 10 mg PO HS 07/10/18 08/18/22 History Calcium Carbonate/Vitamin D3 1 tab PO BID 07/10/18 08/18/22 History [Calcium 500-Vit D3 5 Mcg (200 Iu)] Citalopram Hydrobromide [CeleXA] 20 mg PO DAILY 07/10/18 08/18/22 History Loratadine [Claritin] 10 mg PO DAILY 07/10/18 08/18/22 History Multivitamins, Thera [Multivitamin 1 tab PO DAILY 07/10/18 08/18/22 History (formulary)] Vit C/E/Zn/Coppr/Lutein/Zeaxan 1 cap PO BID 07/10/18 08/18/22 History [Preservision Areds 2 Softgel] Ferrous Sulfate [Feosol] 325 mg PO DAILY #30 tab 07/18/18 08/18/22 Rx Apixaban [Eliquis] 5 mg PO BID #60 tab 03/31/19 08/18/22 Rx Chlorthalidone 25 mg PO DAILY 04/23/20 08/18/22 History Losartan Potassium 100 mg PO HS 06/19/22 08/18/22 History Metoprolol Tartrate [Lopressor] 12.5 mg PO BID #60 06/21/22 08/18/22 Rx amLODIPine [Norvasc] 10 mg PO DAILY #30 tab 06/21/22 08/18/22 Rx Acetaminophen-Codeine 300-30mg 1 tab PO Q6H PRN 08/18/22 08/18/22 History [Tylenol w/codeine #3] Amoxic-Pot Clav 500-125 mg 1 tab PO Q12HR 08/18/22 08/18/22 History [Augmentin 500-125 mg] HYDROcodone/APAP 10-325MG [[place] 1 tab PO Q6HR PRN 08/18/22 08/18/22 History 10-325] Allergies Allergy/AdvReac Type Severity Reaction Status Date / Time gluten Allergy Nausea & Verified 08/18/22 14:37 Vomiting & Diarrhea Physical Exam Vitals: Vital Signs Temp Pulse Pulse Resp BP BP Pulse Ox 08/19/22 11:32 98.5 F 86 18 141/66 96 08/19/22 07:45 96.7 F L 89 16 138/62 89 L 08/19/22 04:00 86 16 145/65 93 L 08/19/22 00:00 73 16 116/57 95 08/18/22 20:00 97.7 F 78 16 133/42 93 L 08/18/22 15:50 98.8 F 80 20 149/70 97 08/18/22 15:18 74 18 08/18/22 15:00 98.4 F 71 18 127/56 98 Intake and Output 08/18/22 08/19/22 08/19/22 22:59 06:59 14:59 Intake Total 648 480 Balance 648 480 Intake: Intake, IV Titration 50 Amount cefTRIAXone 1 gm In 50 Sodium Chloride 0.9% 50 ml @ 100 mls/hr IVPB Q12HR [facility] Rx#:[id number] Oral 598 480 Other: Voiding Method Bedside Commode Bedside Commode Bedside Commode # Voids 1 2 2 Weight 68.039 kg 66.5 kg 66.5 kg Results CBC & Chem 7: 08/18/22 12:33 08/19/22 07:34 Labs: Abnormal Lab Results - Last 24 Hours (Table) 08/19/22 Range/Units 07:34 Sodium 129 L (137-145) mmol/L Potassium 3.2 L (3.5-5.1) mmol/L Chloride 90 L (98-107) mmol/L Glucose 131 H (74-99) mg/dL Calcium 8.2 L (8.4-10.2) mg/dL Total Protein 5.8 L (6.3-8.2) g/dL Albumin 3.2 L (3.5-5.0) g/dL Thrombosis Risk Factor Assmnt - Choose All That Apply Any of the Below Risk Factors Present?: No Other Risk Factors: Yes Each Risk Factor Represents 3 Points: Age 75 years or older Other congenital or acquired thrombophilia - If yes, enter type in comment: No Thrombosis Risk Factor Assessment Total Risk Factor Score: 3 Thrombosis Risk Factor Assessment Level: Moderate Risk
[2022-08-19] MEDS ORDERED: POTASSIUM CHLORIDE ER 10 MEQ TAB.ER.PRT PO STA (14:37)
--- NOTE | 2022-08-19 16:58 | CA ---
Transthoracic Echo Report Name: Edie Beasley Age: 87 Gender: F : 1935 Exam Date: 08/19/2022 13:13 Exam Location: [place] [facility] Ht (in): 63 Wt (lb): 136 Ordering Physician: Lucho Vallejo DO ([id number]) Attending/Referring Phys: Digital Sales Representative Татьяна Allen RDCS Procedure CPT: Indications: re: LV function Cardiac Hx: Technical Quality: Good Contrast 1: Total Dose (mL): Contrast 2: Total Dose (mL): MEASUREMENTS (Male / Female) Normal Values 2D ECHO LV Diastolic Diameter PLAX 4.4 cm 4.2 - 5.9 / 3.9 - 5.3 cm LV Systolic Diameter PLAX 2.8 cm IVS Diastolic Thickness 1.2 cm 0.6 - 1.0 / 0.6 - 0.9 cm LVPW Diastolic Thickness 1.1 cm 0.6 - 1.0 / 0.6 - 0.9 cm LV Relative Wall Thickness 0.5 RV Internal Dim ED PLAX 3.4 cm LA Systolic Diameter LX 3.6 cm 3.0 - 4.0 / 2.7 - 3.8 cm LV Diastolic Volume MOD 4C 126.8 cm??? LV Systolic Volume MOD 4C 54.5 cm??? LV Ejection Fraction MOD 4C 57.0 % LV Diastolic Length 4C 7.3 cm LV Systolic Length 4C 6.1 cm LV Diastolic Volume MOD 2C 32.2 cm??? LV Systolic Volume MOD 2C 21.2 cm??? LV Ejection Fraction MOD 2C 34.1 % LV Diastolic Length 2C 6.0 cm LV Systolic Length 2C 5.8 cm LA Volume 66.4 cm??? 18 - 58 / 22 - 52 cm??? M-MODE Aortic Root Diameter MM 3.4 cm MV E Point Septal Separation 0.4 cm AV Cusp Separation MM 2.4 cm DOPPLER AV Peak Velocity 146.9 cm/s AV Peak Gradient 8.6 mmHg AI Peak Velocity 308.5 cm/s AI Peak Gradient 38.1 mmHg AI Pressure Half Time 663.0 ms MV Area PHT 4.8 cm??? Mitral E Point Velocity 103.1 cm/s Mitral A Point Velocity 104.2 cm/s Mitral E to A Ratio 1.0 MV Deceleration Time 158.7 ms MV E' Velocity 5.1 cm/s Mitral E to MV E' Ratio 20.4 TR Peak Velocity 295.8 cm/s TR Peak Gradient 35.0 mmHg Right Ventricular Systolic Press 38.9 mmHg FINDINGS Left Ventricle Left ventricular ejection fraction is estimated at 55-60 %. Left ventricular cavity size normal. Mildly increased septal wall thickness. Mildly increased posterior wall thickness. Right Ventricle Mild right ventricular dilatation. Mild pulmonary hypertension. Right Atrium Normal right atrial size. Left Atrium Moderately increased left atrial volume. Mildly increased left atrial area. No evidence for an atrial septal defect. Mitral Valve Mitral annular calcification. Trace to mild mitral regurgitation. Aortic Valve Trileaflet aortic valve. Thickened aortic valve without stenosis. Mild aortic regurgitation. Tricuspid Valve Structurally normal tricuspid valve. Mild tricuspid regurgitation. Pulmonic Valve Structurally normal pulmonic valve. Trace pulmonic regurgitation. Pericardium Normal pericardium. No pericardial effusion. Aorta Normal size aortic root and proximal ascending aorta. CONCLUSIONS Left ventricular ejection fraction 55-60% Mildly increased left ventricular wall thickness RVSP 39 Trace to mild mitral regurgitation Mild aortic regurgitation Mild tricuspid regurgitation Previewed by: Dr. Lucho Vallejo DO (Electronically Signed) Final Date: 19 August 2022 16:57
[2022-08-19] MEDS: ONDANSETRON 4 MG/2 ML VIAL IVP PRN (17:47)
[2022-08-19] MEDS: ATORVASTATIN 10 MG TAB PO SCH (19:59)
[2022-08-19] MEDS: METOPROLOL TARTRATE 12.5 MG TAB PO SCH (19:59)
--- NOTE | 2022-08-19 23:58 | P.PN ---
Subjective Progress Note Date: 08/19/22 Principal diagnosis: Left 2nd necrotic toe Patient is a 87-year-old female who recently did have a left fourth toe hammertoes deformity surgery subsequently developing discoloration to the left second toe for the patient presented to the hospital. On today's evaluation that is 08/19/2022 patient denies having any fever or any chills, the patient pain to the left second toe is currently controlled. Denies having any chest pain or shortness of breath or cough no abdominal pain or diarrhea Objective - Vital Signs Vital signs: Vital Signs Temp 98.5 F 08/19/22 11:32 Pulse 86 08/19/22 11:32 Resp 18 08/19/22 11:32 BP 141/66 08/19/22 11:32 Pulse Ox 96 08/19/22 11:32 FiO2 Intake & Output 08/18/22 08/19/22 08/19/22 18:59 06:59 18:59 Intake Total 118 1010 Balance 118 1010 Weight 68.039 kg 66.5 kg 66.5 kg Intake: Intake, IV Titration 50 Amount cefTRIAXone 1 gm In 50 Sodium Chloride 0.9% 50 ml @ 100 mls/hr IVPB Q12HR [facility] Rx#:[id number] Oral 118 960 Other: Voiding Method Bedside Commode Bedside Commode # Voids 2 2 - Exam GENERAL DESCRIPTION elderly female lying in bed, no distress. No tachypnea or accessory muscle of respiration use. LUNGS: Unlabored breathing. Clear to auscultation anteriorly. No wheeze or crackle. HEART: S1, S2, regular rate and rhythm. No loud murmur ABDOMEN: Soft, no tenderness , guarding or rigidity, no organomegaly EXTREMITIES: Left second toe is necrotic no significant surrounding redness or any foul-smelling drainage - Labs CBC & Chem 7: 08/18/22 12:33 08/19/22 07:34 Labs: Abnormal Lab Results - Last 24 Hours (Table) 08/18/22 08/19/22 Range/Units 12:33 07:34 Sodium 129 L 129 L (137-145) mmol/L Potassium 3.2 L (3.5-5.1) mmol/L Chloride 94 L 90 L (98-107) mmol/L BUN 6 L (7-17) mg/dL Glucose 115 H 131 H (74-99) mg/dL Calcium 8.2 L (8.4-10.2) mg/dL AST 37 H (14-36) U/L Total Protein 5.8 L (6.3-8.2) g/dL Albumin 3.2 L (3.5-5.0) g/dL Assessment and Plan (1) Necrosis of toe Current Visit: Yes Status: Acute Code(s): I96 - GANGRENE, NOT ELSEWHERE CLASSIFIED SNOMED Code(s): 270304823 Plan: 1patient with dry gangrene to the left second toe in this patient who did have a hammertoe deformity surgery completed about 3 weeks ago patient is currently afebrile white count is normal clinically doubt secondary infectious etiology. 2patient will need vascular surgery evaluation for vascular work-up and possible amputation of the left second toe. 3Patient to continue with Rocephin and vancomycin while waiting for condition to stabilize and monitor clinical course closely, family at the bedside question were answered Time with Patient: Less than 30
[2022-08-20] MEDS: VANCOMYCIN 1,250 MG in SODIUM CHLORIDE 0.9% 250 ML IVPB SCH ×2 (02:19→17:59)
[2022-08-20] MEDS: FUROSEMIDE 10 MG/ML 4 ML VIAL IV SCH ×2 (02:19→15:19)
[2022-08-20] MEDS: ONDANSETRON 4 MG/2 ML VIAL IVP PRN (04:58)
[2022-08-20 08:35] LABS: HCT 33.8 % (34.0-46.0); MCH 33.8 pg (25.0-35.0); MCHC 35.4 g/dL (31.0-37.0); MCV 95.3 fL (80.0-100.0); Mean Platelet Volume 7.2; Platelet Count 377 k/uL (150-450); RBC 3.55 m/uL (3.80-5.40); RDW 13.6 % (11.5-15.5); WBC 7.3 k/uL (3.8-10.6)
[2022-08-20 08:58] LABS: ALT 19 U/L (4-34); AST 31 U/L (14-36); African American GFR (CKD) >90 (>60 ml/min/1.73 sqM); Albumin 3.4 g/dL (3.5-5.0); Alkaline Phosphatase 73 U/L (38-126); Anion Gap 7 mmol/L; Blood Urea Nitrogen 4 mg/dL (7-17); Calcium 7.8 mg/dL (8.4-10.2); Carbon Dioxide 30 mmol/L (22-30); Chloride 90 mmol/L (98-107); Glucose 145 mg/dL (74-99); Non-African American GFR(CKD) 81 (>60 ml/min/1.73 sqM); Potassium 3.4 mmol/L (3.5-5.1); Sodium 127 mmol/L (137-145); Total Bilirubin 0.4 mg/dL (0.2-1.3)
[2022-08-20] MEDS ORDERED: POTASSIUM CHLORIDE ER 20 MEQ TAB.ER PO STA (09:16)
[2022-08-20] MEDS: LORATADINE 10 MG TAB PO SCH (10:00)
[2022-08-20] MEDS: amLODIPine 10 MG TAB PO SCH (10:00)
[2022-08-20] MEDS: ASPIRIN 325 MG TAB PO SCH (10:00)
[2022-08-20] MEDS: METOPROLOL TARTRATE 12.5 MG TAB PO SCH ×2 (10:00→19:42)
[2022-08-20] MEDS: CITALOPRAM HYDROBROMIDE 20 MG TAB PO SCH (10:00)
[2022-08-20] MEDS: FERROUS SULFATE 325 MG TAB PO SCH (10:00)
[2022-08-20] MEDS: NITROGLYCERIN OINT 1 INCH/GM PACKET TOPICAL SCH ×4 (10:01→21:14)
[2022-08-20] MEDS: HYDROmorphone 0.5 MG/0.5 ML SYRINGE IVP PRN ×2 (10:01→19:44)
--- NOTE | 2022-08-20 11:27 | P.CON ---
Consult Note - . Consult date: 08/20/22 Assessment/Plan:: Patient is pleasant 87-year-old female with history of paroxysmal A. fib, hypertension, hyperlipidemia, valvular heart disease and recent hammertoe surgery presented to [facility] with left foot/toe pain and shortness of breath. Patient did have hammer toe surgery performed about 3 weeks ago on the third and fourth digits in her left foot at [facility]. Patient did follow with her foot/ankle surgeon over the past few weeks. Patient says that the left second toe began to turn purple several days after the surgery was performed and began to get darker in color and about the last week she noticed the toe began to change to black in color. Patient describes the pain in the left total/foot as aching and rates it as 6/10 currently. Patient was worked up in the ER, x-ray of the foot showed erosion versus surgically absent fourth digit middle phalanx as well as erosive changes to the amputation site of the fourth digit proximal phalanx concerning for osteomyelitis. Chest x-ray showed pulmonary condition, CTA chest was negative for PE. Patient was started on IV antibiotics and IV diuretics and was admitted to hospitalist service 08/20. Patient seen and examined. Has some pain in left foot but states that it is tolerable. Denies any shortness of breath. Vital signs stable. Case discussed with nursing staff REVIEW OF SYSTEMS: CONSTITUTIONAL: No fever, no malaise,. CARDIOVASCULAR: No chest pain, no palpitations, no syncope. PULMONARY: No shortness of breath, no cough, GASTROINTESTINAL: No diarrhea, no nausea, no vomiting, no abdominal pain. NEUROLOGICAL: No headaches, no weakness, PHYSICAL EXAMINATION: GENERAL: The patient is alert and oriented x3, not in any acute distress. Well developed, well nourished. HEENT: Pupils are round and equally reacting to light. EOMI. No scleral icterus. No conjunctival pallor. Normocephalic, atraumatic. No pharyngeal erythema. No thyromegaly. CARDIOVASCULAR: S1 and S2 present. No murmurs, rubs, or gallops. PULMONARY: Chest is clear to auscultation, no wheezing or crackles. ABDOMEN: Soft, nontender, nondistended, normoactive bowel sounds. No palpable organomegaly. MUSCULOSKELETAL: No joint swelling or deformity. EXTREMITIES: Necrotic left second toe, slight blackening of third and fourth toe NEUROLOGICAL: Gross neurological examination did not reveal any focal deficits. SKIN: No rashes. Assessment and plan Dry gangrene of left second toe Acute on chronic diastolic heart failure Paroxysmal A. fib currently sinus rhythm Hypertension Hyperlipidemia PLAN Monitor vital signs Monitor CBC Follow-up on blood cultures Continue IV Rocephin and vancomycin Continue IV Lasix 20 mg every 12. 2-D echo ordered Follow-up in cardiology recommendations Consult vascular surgery Hold Eliquis for now as patient might be needing some debridement versus amputation Follow-up in ID recs
--- NOTE | 2022-08-20 11:51 | P.GSCN ---
History of Present Illness History of present illness: 87-year-old white female patient has been admitted through the ER discomfort and pain left foot post surgical intervention 4 hammertoe involving the left foot toes patient also has history of for A. fib and today CHF ejection fraction is 55-60%. This patient had a hammertoe corrected surgery done 3 weeks ago at [facility] left foot second toe has a gangrene and third toe has some scab formation noted on the fourth toe and also there is a pressure ulcer lateral aspect of the foot. Medical history no history of diabetes patient has history of hypertension congestive heart failure A. fib on a liquids Chest is clear good entry both lungs patient has a history of A. fib on now which has been stopped for possible surgical intervention her ejection fraction is 55-60% Abdomen is soft nontender Vascular examination femorals are 1+ bilateral posterior tibial has a triphasic signal and DP and by the Doppler patient to second toe has a has a dry gangrene and also patient on the fourth toe has some scab formation noted and lateral aspect of the foot has a pressure ulcer disease an IV antibiotic under care of infectious disease Plan is left foot second toe amputation I have discussed with the patient and the daughter they all agreed Past Medical History Past Medical History: Atrial Fibrillation, Cancer, Eye Disorder, Hearing D isorder / Deafness, Hyperlipidemia, Hypertension, Osteoarthritis (OA) Additional Past Medical History / Comment(s): 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 History of Any Multi-Drug Resistant Organisms: None Reported Past Surgical History: Joint Replacement, Orthopedic Surgery Additional Past Surgical History / Comment(s): left knee replacements, left femur fx repair with hardware, BILATERAL CATARACTS, BILATERAL EYELID SURGERY, COLONOSCOPY, right hip replacement, hammer toe fixed on left foot. Past Anesthesia/Blood Transfusion Reactions: Previous Problems w/ Anesthesia, Motion Sickness Additional Past Anesthesia/Blood Transfusion Reaction / Comm: Hard time waking from anesthesia. Past Psychological History: No Psychological Hx Reported Smoking Status: Former smoker Past Alcohol Use History: Occasional Past Drug Use History: None Reported - Past Family History Mother History Unknown: Yes Additional Family Medical History / Comment(s): myasthenia gravis Sister(s) History Unknown: Yes Additional Family Medical History / Comment(s): phlebitis Brother(s) Family Medical History: Cancer Daughter(s) Family Medical History: Osteoarthritis (OA) Son(s) Family Medical History: Unable to Obtain Medications and Allergies Home Medications Medication Instructions Recorded Confirmed Type Atorvastatin [Lipitor] 10 mg PO HS 07/10/18 08/18/22 History Calcium Carbonate/Vitamin D3 1 tab PO BID 07/10/18 08/18/22 History [Calcium 500-Vit D3 5 Mcg (200 Iu)] Citalopram Hydrobromide [CeleXA] 20 mg PO DAILY 07/10/18 08/18/22 History Loratadine [Claritin] 10 mg PO DAILY 07/10/18 08/18/22 History Multivitamins, Thera [Multivitamin 1 tab PO DAILY 07/10/18 08/18/22 History (formulary)] Vit C/E/Zn/Coppr/Lutein/Zeaxan 1 cap PO BID 07/10/18 08/18/22 History [Preservision Areds 2 Softgel] Ferrous Sulfate [Feosol] 325 mg PO DAILY #30 tab 07/18/18 08/18/22 Rx Apixaban [Eliquis] 5 mg PO BID #60 tab 03/31/19 08/18/22 Rx Chlorthalidone 25 mg PO DAILY 04/23/20 08/18/22 History Losartan Potassium 100 mg PO HS 06/19/22 08/18/22 History Metoprolol Tartrate [Lopressor] 12.5 mg PO BID #60 06/21/22 08/18/22 Rx amLODIPine [Norvasc] 10 mg PO DAILY #30 tab 06/21/22 08/18/22 Rx Acetaminophen-Codeine 300-30mg 1 tab PO Q6H PRN 08/18/22 08/18/22 History [Tylenol w/codeine #3] Amoxic-Pot Clav 500-125 mg 1 tab PO Q12HR 08/18/22 08/18/22 History [Augmentin 500-125 mg] HYDROcodone/APAP 10-325MG [[place] 1 tab PO Q6HR PRN 08/18/22 08/18/22 History 10-325] Allergies Allergy/AdvReac Type Severity Reaction Status Date / Time gluten Allergy Nausea & Verified 08/18/22 14:37 Vomiting & Diarrhea Surgical - Exam Vital Signs Temp Pulse Resp BP Pulse Ox 98.5 F 74 36 H 148/56 100 08/18/22 11:47 08/18/22 11:47 08/18/22 11:47 08/18/22 11:47 08/18/22 11:47 Results - Labs 08/20/22 07:36 08/20/22 07:36 Abnormal Lab Results - Last 24 Hours (Table) 08/20/22 08/20/22 Range/Units 07:36 07:36 RBC 3.55 L (3.80-5.40) m/uL Hct 33.8 L (34.0-46.0) % Sodium 127 L (137-145) mmol/L Potassium 3.4 L (3.5-5.1) mmol/L Chloride 90 L (98-107) mmol/L BUN 4 L (7-17) mg/dL Glucose 145 H (74-99) mg/dL Calcium 7.8 L (8.4-10.2) mg/dL Total Protein 6.0 L (6.3-8.2) g/dL Albumin 3.4 L (3.5-5.0) g/dL Microbiology - Last 24 Hours (Table) 08/18/22 12:25 Blood Culture Gram Stain - Preliminary Blood Blood Culture - Preliminary Coagulase Negative Staph 08/18/22 12:25 Blood Culture - Final Blood 08/18/22 12:40 Blood Culture - Preliminary Blood No Growth after 24 hours Diabetes panel 08/20/22 Range/Units 07:36 Sodium 127 L (137-145) mmol/L Potassium 3.4 L (3.5-5.1) mmol/L Chloride 90 L (98-107) mmol/L Carbon Dioxide 30 (22-30) mmol/L BUN 4 L (7-17) mg/dL Creatinine 0.66 (0.52-1.04) mg/dL Glucose 145 H (74-99) mg/dL Calcium 7.8 L (8.4-10.2) mg/dL AST 31 (14-36) U/L ALT 19 (4-34) U/L Alkaline Phosphatase 73 (38-126) U/L Total Protein 6.0 L (6.3-8.2) g/dL Albumin 3.4 L (3.5-5.0) g/dL Calcium panel 08/20/22 Range/Units 07:36 Calcium 7.8 L (8.4-10.2) mg/dL Albumin 3.4 L (3.5-5.0) g/dL Pituitary panel 08/20/22 Range/Units 07:36 Sodium 127 L (137-145) mmol/L Potassium 3.4 L (3.5-5.1) mmol/L Chloride 90 L (98-107) mmol/L Carbon Dioxide 30 (22-30) mmol/L BUN 4 L (7-17) mg/dL Creatinine 0.66 (0.52-1.04) mg/dL Glucose 145 H (74-99) mg/dL Calcium 7.8 L (8.4-10.2) mg/dL Adrenal panel 08/20/22 Range/Units 07:36 Sodium 127 L (137-145) mmol/L Potassium 3.4 L (3.5-5.1) mmol/L Chloride 90 L (98-107) mmol/L Carbon Dioxide 30 (22-30) mmol/L BUN 4 L (7-17) mg/dL Creatinine 0.66 (0.52-1.04) mg/dL Glucose 145 H (74-99) mg/dL Calcium 7.8 L (8.4-10.2) mg/dL Total Bilirubin 0.4 (0.2-1.3) mg/dL AST 31 (14-36) U/L ALT 19 (4-34) U/L Alkaline Phosphatase 73 (38-126) U/L Total Protein 6.0 L (6.3-8.2) g/dL Albumin 3.4 L (3.5-5.0) g/dL
--- NOTE | 2022-08-20 13:39 | P.PN ---
Subjective HISTORY OF PRESENTING ILLNESS Patient is pleasant 87-year-old female with history of paroxysmal A. fib, hypertension, hyperlipidemia, valvular heart disease and recent hammertoe surgery with gangrenous foot who presents secondary to increased dyspnea as well as black toe or last 2 weeks. She states she did have surgery approximately 3 weeks ago for a hammertoe over then started noticing discoloration of to the toes next to her surgery and states she had follow with veterinary milk specialist who stated this would likely get better on its own in turn more pink. Unfortunately now it is black and necrotic. Denies any actual pus or warmth. Additionally she started feeling significantly short of breath yesterday. Imaging shows bilateral pulmonary vascular congestion and pleural effusions. She was given IV Lasix and feels much better. ProBNP elevated at approximately 2000. Additionally hyponatremic at 129. Troponin negative 1. Denies any chest pain or pressure. EKG shows sinus rhythm with no significant ST or T-wave abnormalities. 08/20 Patient seen and examined. Patient states her breathing is much better, off of oxygen. Good urine output with IV Lasix. Recommendations for surgery tomorrow for toe amputation of gangrenous toe. PHYSICAL EXAMINATION Vital signs reviewed. CONSTITUTIONAL: No apparent distress. HEENT: Head is normocephalic. Pupils are equal, round. Sclerae anicteric. Mucous membranes of the mouth are moist. No JVD. No carotid bruit. CHEST EXAMINATION: +crackles at bases HEART EXAMINATION: Regular rate and rhythm. S1, S2 heard. No murmurs, gallops or rub. ABDOMEN: Soft, nontender. Positive bowel sounds. EXTREMITIES: 2+ peripheral pulses, no lower extremity edema and no calf tenderness. NEUROLOGIC EXAMINATION: Patient is awake, alert and oriented x3. ASSESSMENT 1. Acute on chronic diastolic heart failure 2. Paroxysmal A. fib currently sinus rhythm 3. Necrotic left toe partially related to recent surgery 4. Status post recent hammertoe surgery 5. Hypertension 6. Hyperlipidemia PLAN Echocardiogram shows preserved left ventricular ejection fraction without significant valvular disease. Continue with IV diuretics and transition to oral Lasix tomorrow. Patient somewhat higher risk given age and comorbidities for surgery however appears reasonable risk and cleared from a cardiology standpoint for surgery. Hold Eliquis for surgery. Objective - Vital Signs Vital signs: Vital Signs Temp 98.5 F 08/20/22 12:45 Pulse 79 08/20/22 12:45 Resp 18 08/20/22 12:45 BP 136/62 08/20/22 12:45 Pulse Ox 97 08/20/22 12:45 FiO2 Intake & Output 08/19/22 08/20/22 08/20/22 18:59 06:59 18:59 Intake Total 780 118 Balance 780 118 Weight 66.5 kg 65.8 kg Intake: Intake, IV Titration 300 Amount Vancomycin 1,250 mg In 250 Sodium Chloride 0.9% 250 ml @ 125 mls/hr IVPB Q16H [facility] Rx#:[id number] cefTRIAXone 1 gm In 50 Sodium Chloride 0.9% 50 ml @ 100 mls/hr IVPB Q12HR [facility] Rx#:[id number] Oral 480 118 Other: Voiding Method Bedside Commode Bedside Commode Bedside Commode # Voids 2 3 # Bowel Movements 1 - Labs CBC & Chem 7: 08/20/22 07:36 08/20/22 07:36 Labs: Abnormal Lab Results - Last 24 Hours (Table) 08/20/22 08/20/22 Range/Units 07:36 07:36 RBC 3.55 L (3.80-5.40) m/uL Hct 33.8 L (34.0-46.0) % Sodium 127 L (137-145) mmol/L Potassium 3.4 L (3.5-5.1) mmol/L Chloride 90 L (98-107) mmol/L BUN 4 L (7-17) mg/dL Glucose 145 H (74-99) mg/dL Calcium 7.8 L (8.4-10.2) mg/dL Total Protein 6.0 L (6.3-8.2) g/dL Albumin 3.4 L (3.5-5.0) g/dL Microbiology - Last 24 Hours (Table) 08/18/22 12:25 Blood Culture Gram Stain - Preliminary Blood Blood Culture - Preliminary Coagulase Negative Staph 08/18/22 12:25 Blood Culture - Final Blood 08/18/22 12:40 Blood Culture - Preliminary Blood No Growth after 24 hours
[2022-08-20] MEDS: ATORVASTATIN 10 MG TAB PO SCH (19:42)
[2022-08-21] MEDS: FUROSEMIDE 10 MG/ML 4 ML VIAL IV SCH (01:45)
[2022-08-21] MEDS: FERROUS SULFATE 325 MG TAB PO SCH ×2 (07:35→10:13)
[2022-08-21] MEDS: ASPIRIN 325 MG TAB PO SCH ×2 (07:35→10:13)
[2022-08-21] MEDS: CITALOPRAM HYDROBROMIDE 20 MG TAB PO SCH ×2 (07:35→10:13)
[2022-08-21] MEDS: amLODIPine 10 MG TAB PO SCH ×2 (07:35→10:13)
[2022-08-21] MEDS: LORATADINE 10 MG TAB PO SCH ×2 (07:35→10:13)
[2022-08-21] MEDS: METOPROLOL TARTRATE 12.5 MG TAB PO SCH ×3 (07:35→21:00)
[2022-08-21] MEDS ORDERED: ONDANSETRON 4 MG/2 ML VIAL ONE (07:59)
[2022-08-21] MEDS ORDERED: fentaNYL (PF) 50 MCG/ML 2 ML AMP ONE (07:59)
[2022-08-21] MEDS ORDERED: PROPOFOL 10 MG/ML 20 ML VIAL IV ONE (07:59)
[2022-08-21] MEDS ORDERED: LACTATED RINGERS 1,000 ML IV ONE (08:04)
[2022-08-21] MEDS ORDERED: SODIUM CHLORIDE 0.9% 100 ML with ceFAZolin 2,000 MG IV ONE ×2 (08:12)
[2022-08-21] MEDS ORDERED: BUPIVACAINE (PF) 0.25% 30 ML VIAL INTRAARTIC ONE ×2 (08:16)
[2022-08-21] MEDS ORDERED: VANCOMYCIN TROUGH DUE 1 EACH MISC MISCELLANE ONE (09:00)
[2022-08-21] MEDS: HYDROmorphone 0.5 MG/0.5 ML SYRINGE IVP PRN ×4 (10:12→22:42)
[2022-08-21] MEDS: NITROGLYCERIN OINT 1 INCH/GM PACKET TOPICAL SCH ×4 (10:13→21:02)
--- NOTE | 2022-08-21 10:28 | P.PN ---
Subjective HISTORY OF PRESENTING ILLNESS Patient is pleasant 87-year-old female with history of paroxysmal A. fib, hypertension, hyperlipidemia, valvular heart disease and recent hammertoe surgery with gangrenous foot who presents secondary to increased dyspnea as well as black toe or last 2 weeks. She states she did have surgery approximately 3 weeks ago for a hammertoe over then started noticing discoloration of to the toes next to her surgery and states she had follow with tool room gear machine operator who stated this would likely get better on its own in turn more pink. Unfortunately now it is black and necrotic. Denies any actual pus or warmth. Additionally she started feeling significantly short of breath yesterday. Imaging shows bilateral pulmonary vascular congestion and pleural effusions. She was given IV Lasix and feels much better. ProBNP elevated at approximately 2000. Additionally hyponatremic at 129. Troponin negative 1. Denies any chest pain or pressure. EKG shows sinus rhythm with no significant ST or T-wave abnormalities. 08/20 Patient seen and examined. Patient states her breathing is much better, off of oxygen. Good urine output with IV Lasix. Recommendations for surgery tomorrow for toe amputation of gangrenous toe. 08/21 Patient seen and examined. Patient states her breathing continues to improve. She underwent surgery for her left toe and amputation. Denies any chest pain or pressure. PHYSICAL EXAMINATION Vital signs reviewed. CONSTITUTIONAL: No apparent distress. HEENT: Head is normocephalic. Pupils are equal, round. Sclerae anicteric. Mucous membranes of the mouth are moist. No JVD. No carotid bruit. CHEST EXAMINATION: +crackles at bases HEART EXAMINATION: Regular rate and rhythm. S1, S2 heard. No murmurs, gallops or rub. ABDOMEN: Soft, nontender. Positive bowel sounds. EXTREMITIES: 2+ peripheral pulses, no lower extremity edema and no calf tenderness. NEUROLOGIC EXAMINATION: Patient is awake, alert and oriented x3. ASSESSMENT 1. Acute on chronic diastolic heart failure 2. Paroxysmal A. fib currently sinus rhythm 3. Necrotic left toe partially related to recent surgery 4. Status post recent hammertoe surgery 5. Hypertension 6. Hyperlipidemia PLAN Echocardiogram shows preserved left ventricular ejection fraction without significant valvular disease. Restart Eliquis when OK with surgery Transition to oral Lasix 40mg daily Objective - Vital Signs Vital signs: Vital Signs Temp 98.7 F 08/21/22 10:01 Pulse 82 08/21/22 10:01 Resp 16 08/21/22 10:01 BP 137/85 08/21/22 10:01 Pulse Ox 97 08/21/22 10:01 FiO2 Intake & Output 08/20/22 08/21/22 08/21/22 18:59 06:59 18:59 Intake Total 956 530 550 Output Total 2 Balance 956 530 548 Weight 65.4 kg Intake: IV 550 Intake, IV Titration 50 Amount cefTRIAXone 1 gm In 50 Sodium Chloride 0.9% 50 ml @ 100 mls/hr IVPB Q12HR [facility] Rx#:[id number] Oral 956 480 Output: Estimated Blood Loss 2 Other: Voiding Method Bedside Commode Bedside Commode # Voids 2 6 # Bowel Movements 1 1 - Labs CBC & Chem 7: 08/20/22 07:36 08/20/22 07:36 Labs: Microbiology - Last 24 Hours (Table) 08/18/22 12:40 Blood Culture - Preliminary Blood No Growth after 48 hours 08/18/22 12:25 Blood Culture Gram Stain - Preliminary Blood Blood Culture - Preliminary Coagulase Negative Staph
--- NOTE | 2022-08-21 12:05 | P.PN ---
Subjective Progress Note Date: 08/21/22 Patient is pleasant 87-year-old female with history of paroxysmal A. fib, hypertension, hyperlipidemia, valvular heart disease and recent hammertoe surgery presented to [facility] with left foot/toe pain and shortness of breath. Patient did have hammer toe surgery performed about 3 weeks ago on the third and fourth digits in her left foot at [facility]. Patient did follow with her foot/ankle surgeon over the past few weeks. Patient says that the left second toe began to turn purple several days after the surgery was performed and began to get darker in color and about the last week she noticed the toe began to change to black in color. Patient describes the pain in the left total/foot as aching and rates it as 6/10 currently. Patient was worked up in the ER, x-ray of the foot showed erosion versus surgically absent fourth digit middle phalanx as well as erosive changes to the amputation site of the fourth digit proximal phalanx concerning for osteomyelitis. Chest x-ray showed pulmonary condition, CTA chest was negative for PE. Patient was started on IV antibiotics and IV diuretics and was admitted to hospitalist service 08/20. Patient seen and examined. Has some pain in left foot but states that it is tolerable. Denies any shortness of breath. Vital signs stable. Case discussed with nursing staff 08/21. Patient seen and examined. Status post second toe amputation. Currently laying comfortably in the bed. Denies any nausea or vomiting REVIEW OF SYSTEMS: CONSTITUTIONAL: No fever, no malaise,. CARDIOVASCULAR: No chest pain, no palpitations, no syncope. PULMONARY: No shortness of breath, no cough, GASTROINTESTINAL: No diarrhea, no nausea, no vomiting, no abdominal pain. NEUROLOGICAL: No headaches, no weakness, PHYSICAL EXAMINATION: GENERAL: The patient is alert and oriented x3, not in any acute distress. Well developed, well nourished. HEENT: Pupils are round and equally reacting to light. EOMI. No scleral icterus. No conjunctival pallor. Normocephalic, atraumatic. No pharyngeal erythema. No thyromegaly. CARDIOVASCULAR: S1 and S2 present. No murmurs, rubs, or gallops. PULMONARY: Chest is clear to auscultation, no wheezing or crackles. ABDOMEN: Soft, nontender, nondistended, normoactive bowel sounds. No palpable organomegaly. MUSCULOSKELETAL: No joint swelling or deformity. EXTREMITIES: Left foot bandaged seen NEUROLOGICAL: Gross neurological examination did not reveal any focal deficits. SKIN: No rashes. 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 fib currently sinus rhythm Hypertension Hyperlipidemia PLAN Monitor vital signs Monitor CBC Follow-up on blood cultures Continue IV Rocephin and vancomycin Transition to oral Lasix 40 mg daily Results of 2-D echo noted, showed preserved left ventricular ejection fraction Follow-up in cardiology recommendations Continue wound care Resume Eliquis once okay with vascular surgery Follow-up in [place] recs Objective - Vital Signs Vital signs: Vital Signs Temp 98.7 F 08/21/22 10:01 Pulse 82 08/21/22 10:01 Resp 16 08/21/22 10:01 BP 137/85 08/21/22 10:01 Pulse Ox 97 08/21/22 10:01 FiO2 Intake & Output 08/20/22 08/21/22 08/21/22 18:59 06:59 18:59 Intake Total 956 530 550 Output Total 2 Balance 956 530 548 Weight 65.4 kg Intake: IV 550 Intake, IV Titration 50 Amount cefTRIAXone 1 gm In 50 Sodium Chloride 0.9% 50 ml @ 100 mls/hr IVPB Q12HR [facility] Rx#:[id number] Oral 956 480 Output: Estimated Blood Loss 2 Other: Voiding Method Bedside Commode Bedside Commode # Voids 2 6 # Bowel Movements 1 1 - Labs CBC & Chem 7: 08/20/22 07:36 08/20/22 07:36 Labs: Microbiology - Last 24 Hours (Table) 08/18/22 12:40 Blood Culture - Preliminary Blood No Growth after 48 hours 08/18/22 12:25 Blood Culture Gram Stain - Preliminary Blood Blood Culture - Preliminary Coagulase Negative Staph
[2022-08-21 12:18] LABS: Basophils % (A) 0 %; Eosinophils % (A) 1 %; HCT 35.7 % (34.0-46.0); Lymphocytes # (A) 0.8 k/uL (1.0-4.8); Lymphocytes % (A) 10 %; MCH 32.4 pg (25.0-35.0); MCHC 33.7 g/dL (31.0-37.0); MCV 96.1 fL (80.0-100.0); Mean Platelet Volume 6.8; Monocytes # (A) 0.4 k/uL (0-1.0); Monocytes % (A) 5 %; Neutrophils # (A) 6.5 k/uL (1.3-7.7); Neutrophils % (A) 82 %; Platelet Count 388 k/uL (150-450); RBC 3.71 m/uL (3.80-5.40); RDW 12.9 % (11.5-15.5); WBC 7.9 k/uL (3.8-10.6)
[2022-08-21 12:37] LABS: ALT 19 U/L (4-34); AST 31 U/L (14-36); African American GFR (CKD) >90 (>60 ml/min/1.73 sqM); Albumin 3.3 g/dL (3.5-5.0); Alkaline Phosphatase 70 U/L (38-126); Anion Gap 5 mmol/L; Blood Urea Nitrogen 5 mg/dL (7-17); Calcium 7.7 mg/dL (8.4-10.2); Carbon Dioxide 32 mmol/L (22-30); Chloride 91 mmol/L (98-107); Glucose 111 mg/dL (74-99); Non-African American GFR(CKD) 83 (>60 ml/min/1.73 sqM); Potassium 3.7 mmol/L (3.5-5.1); Sodium 128 mmol/L (137-145); Total Bilirubin 0.5 mg/dL (0.2-1.3); Total Protein 5.9 g/dL (6.3-8.2)
[2022-08-21] MEDS: VANCOMYCIN 1,250 MG in SODIUM CHLORIDE 0.9% 250 ML IVPB SCH (13:19)
--- NOTE | 2022-08-21 15:25 | P.PN ---
Subjective Progress Note Date: 08/20/22 Principal diagnosis: Left 2nd necrotic toe Patient is a 87-year-old female who recently did have a left fourth toe hammertoes deformity surgery subsequently developing discoloration to the left second toe for the patient presented to the hospital. On today's evaluation that is 08/20/2022 patient remains to be afebrile, the patient pain to the left second toe is controlled with the current medication, the patient Denies having any chest pain or shortness of breath or cough no abdominal pain or diarrhea Objective - Vital Signs Vital signs: Vital Signs Temp 98.5 F 08/20/22 15:29 Pulse 82 08/20/22 15:29 Resp 16 08/20/22 15:29 BP 148/67 08/20/22 15:29 Pulse Ox 97 08/20/22 15:29 FiO2 Intake & Output 08/19/22 08/20/22 08/20/22 18:59 06:59 18:59 Intake Total 780 358 Balance 780 358 Weight 66.5 kg 65.8 kg Intake: Intake, IV Titration 300 Amount Vancomycin 1,250 mg In 250 Sodium Chloride 0.9% 250 ml @ 125 mls/hr IVPB Q16H [facility] Rx#:[id number] cefTRIAXone 1 gm In 50 Sodium Chloride 0.9% 50 ml @ 100 mls/hr IVPB Q12HR [facility] Rx#:[id number] Oral 480 358 Other: Voiding Method Bedside Commode Bedside Commode Bedside Commode # Voids 2 3 # Bowel Movements 1 - Exam GENERAL DESCRIPTION elderly female lying in bed, no distress. No tachypnea or accessory muscle of respiration use. LUNGS: Unlabored breathing. Clear to auscultation anteriorly. No wheeze or crackle. HEART: S1, S2, regular rate and rhythm. No loud murmur ABDOMEN: Soft, no tenderness , guarding or rigidity, no organomegaly EXTREMITIES: Left second toe is necrotic no significant surrounding redness or any foul-smelling drainage - Labs CBC & Chem 7: 08/21/22 11:42 08/21/22 11:42 Labs: Abnormal Lab Results - Last 24 Hours (Table) 08/20/22 08/20/22 Range/Units 07:36 07:36 RBC 3.55 L (3.80-5.40) m/uL Hct 33.8 L (34.0-46.0) % Sodium 127 L (137-145) mmol/L Potassium 3.4 L (3.5-5.1) mmol/L Chloride 90 L (98-107) mmol/L BUN 4 L (7-17) mg/dL Glucose 145 H (74-99) mg/dL Calcium 7.8 L (8.4-10.2) mg/dL Total Protein 6.0 L (6.3-8.2) g/dL Albumin 3.4 L (3.5-5.0) g/dL Microbiology - Last 24 Hours (Table) 08/18/22 12:40 Blood Culture - Preliminary Blood No Growth after 48 hours 08/18/22 12:25 Blood Culture Gram Stain - Preliminary Blood Blood Culture - Preliminary Coagulase Negative Staph 08/18/22 12:25 Blood Culture - Final Blood Assessment and Plan (1) Necrosis of toe Current Visit: Yes Status: Acute Code(s): I96 - GANGRENE, NOT ELSEWHERE CLASSIFIED SNOMED Code(s): 424652100 Plan: 1patient with dry gangrene to the left second toe in this patient who did have a hammertoe deformity surgery completed about 3 weeks ago patient is currently afebrile white count is normal clinically doubt secondary infectious etiology. 2patient has been evaluated by vascular surgery and planning for amputation of the left second toe tomorrow morning 3-positive blood culture with staph epi likely skin contamination 3Patient to continue with Rocephin and vancomycin and monitored clinical course closely Time with Patient: Less than 30
--- NOTE | 2022-08-21 15:27 | P.PN ---
Subjective Progress Note Date: 08/21/22 Principal diagnosis: Left 2nd necrotic toe Patient is a 87-year-old female who recently did have a left fourth toe hammertoes deformity surgery subsequently developing discoloration to the left second toe for the patient presented to the hospital. Patient is status post amputation of the left second toe completed by vascular surgery as of 08/21/2022 On today's evaluation that is 08/21/2022 patient continues to be afebrile, the patient pain to the left second toe amputation site is controlled with the current medication, the patient Denies having any chest pain or shortness of breath or cough no abdominal pain or diarrhea Objective - Vital Signs Vital signs: Vital Signs Temp 99.3 F 08/21/22 13:00 Pulse 82 08/21/22 13:00 Resp 16 08/21/22 13:00 BP 119/56 08/21/22 13:00 Pulse Ox 98 08/21/22 13:00 FiO2 Intake & Output 08/20/22 08/21/22 08/21/22 18:59 06:59 18:59 Intake Total 956 530 550 Output Total 2 Balance 956 530 548 Weight 65.4 kg Intake: IV 550 Intake, IV Titration 50 Amount cefTRIAXone 1 gm In 50 Sodium Chloride 0.9% 50 ml @ 100 mls/hr IVPB Q12HR [facility] Rx#:[id number] Oral 956 480 Output: Estimated Blood Loss 2 Other: Voiding Method Bedside Commode Bedside Commode # Voids 2 6 1 # Bowel Movements 1 1 - Exam GENERAL DESCRIPTION elderly female lying in bed, no distress. No tachypnea or accessory muscle of respiration use. LUNGS: Unlabored breathing. Clear to auscultation anteriorly. No wheeze or crackle. HEART: S1, S2, regular rate and rhythm. No loud murmur ABDOMEN: Soft, no tenderness EXTREMITIES: Left wound is currently dressed in a wound dressing no drainage on the dressing - Labs CBC & Chem 7: 08/21/22 11:42 08/21/22 11:42 Labs: Abnormal Lab Results - Last 24 Hours (Table) 08/21/22 08/21/22 Range/Units 11:42 11:42 RBC 3.71 L (3.80-5.40) m/uL Lymphocytes # 0.8 L (1.0-4.8) k/uL Sodium 128 L (137-145) mmol/L Chloride 91 L (98-107) mmol/L Carbon Dioxide 32 H (22-30) mmol/L BUN 5 L (7-17) mg/dL Glucose 111 H (74-99) mg/dL Calcium 7.7 L (8.4-10.2) mg/dL Total Protein 5.9 L (6.3-8.2) g/dL Albumin 3.3 L (3.5-5.0) g/dL Microbiology - Last 24 Hours (Table) 08/18/22 12:40 Blood Culture - Preliminary Blood No Growth after 48 hours 08/18/22 12:25 Blood Culture Gram Stain - Preliminary Blood Blood Culture - Preliminary Coagulase Negative Staph Assessment and Plan (1) Necrosis of toe Current Visit: Yes Status: Acute Code(s): I96 - GANGRENE, NOT ELSEWHERE CLASSIFIED SNOMED Code(s): 169891595 Plan: 1patient with dry gangrene to the left second toe in this patient who did have a hammertoe deformity surgery completed about 3 weeks ago patient is currently afebrile white count is normal clinically doubt secondary infectious etiology. 2patient has been evaluated by vascular surgery and the patient is status post amputation of the left second toe completed on 08/21/2022 3-positive blood culture with staph epi likely skin contamination 3Patient to continue with Rocephin and we'll discontinue vancomycin to decrease risk of nephrotoxicity Time with Patient: Less than 30
[2022-08-21] MEDS: ACETAMINOPHEN TAB 325 MG TAB PO PRN ×2 (15:39→21:00)
[2022-08-21] MEDS: FUROSEMIDE 40 MG TAB PO SCH (15:40)
--- NOTE | 2022-08-21 17:16 | OP ---
OPERATIVE REPORT PREOPERATIVE DIAGNOSIS: Gangrene of the left foot second toe. PROCEDURE PERFORMED: Amputation of the second toe at metatarsophalangeal joint. ANESTHESIA: Local IV sedation. DESCRIPTION OF PROCEDURE: The patient was brought to the operating room. Left foot was prepped and draped in usual sterile manner. Patient had intervention done by aprn for hammertoe and patient developed gangrene of the second toe. Under local IV sedation, an elliptical incision was made on the dorsal aspect of the foot, went circumferentially on the plantar aspect, deepened through skin, fat, and tendon on the plantar and dorsal aspects were excised metatarsophalangeal joint, ligaments were divided. Then specimen was removed, which was sent for deep culture. Hemostasis was controlled. Incision was closed in 2 layers, 3-0 Vicryl and Monocryl suture was used subcuticular. Dressing applied. Patient tolerated the procedure well. MMODL / IJN: [id number] /
[2022-08-21] MEDS ORDERED: POTASSIUM CHLORIDE ER 20 MEQ TAB.ER PO STA (17:57)
[2022-08-21] MEDS: ATORVASTATIN 10 MG TAB PO SCH (21:00)
[2022-08-22] MEDS: ACETAMINOPHEN TAB 325 MG TAB PO PRN ×2 (02:05→08:27)
[2022-08-22] MEDS: HYDROmorphone 0.5 MG/0.5 ML SYRINGE IVP PRN ×3 (04:50→17:52)
[2022-08-22] MEDS ORDERED: VANCOMYCIN 1,250 MG in SODIUM CHLORIDE 0.9% 250 ML IVPB SCH (06:00)
--- NOTE | 2022-08-22 08:17 | PN ---
PROGRESS NOTE SUBJECTIVE: Edie is an 87-year-old lady, who has gangrene of the left foot and underwent amputation of the same that Cardiology has been involved in the care of secondary to heart failure. She has history of valvular heart disease, paroxysmal atrial fibrillation, hypertension, and dyslipidemia. Her surgery was done about 3 weeks ago and on her initial presentation, she initially had surgery for hammertoe, subsequently developed gangrene of the foot and underwent amputation for the same and on her initial presentation 3 weeks after the origin of surgery, she was in congestive heart failure that we treated with intravenous diuretics with significant improvement in her symptoms. This morning, she is free of chest pain, difficulty in breathing, does not have any right leg edema. OBJECTIVE: VITAL SIGNS: Afebrile, heart rate is 80 beats per minute, blood pressure is 134/50, respiratory rate is 18, O2 saturation is 98% on room air. NECK: There is no jugular venous distention. Carotid upstroke is diminished. There is no bruit. CHEST: Good air entry bilaterally. HEART: First and second heart sounds and an ejection systolic murmur in the aortic area and systolic murmur at the left lower sternal border. LABS: Show a hemoglobin of 12, platelet count is 388, potassium is 3.7, creatinine is 0.6. ASSESSMENT: 1. Acute on chronic diastolic heart failure. 2. Paroxysmal atrial fibrillation. 3. Status post partial left toe amputation. 4. Hypertension. 5. Dyslipidemia. PLAN: The patient seems to be out of heart failure. She is currently on aspirin, amlodipine, Lipitor, oral Lasix, Lopressor, and nitro paste. I am going to stop the nitro paste. Continue rest of her medications and from cardiac standpoint, she is doing well enough that whenever the pain is adequately controlled in the foot, we may be able to discharge her home. She was on Eliquis on her initial presentation, which is currently on hold. We will address this prior to discharge. MMODL / IJN: [id number] /
[2022-08-22] MEDS: FERROUS SULFATE 325 MG TAB PO SCH (08:20)
[2022-08-22] MEDS: ASPIRIN 325 MG TAB PO SCH (08:20)
[2022-08-22] MEDS: METOPROLOL TARTRATE 12.5 MG TAB PO SCH ×2 (08:20→20:28)
[2022-08-22] MEDS: LORATADINE 10 MG TAB PO SCH (08:20)
[2022-08-22] MEDS: FUROSEMIDE 40 MG TAB PO SCH (08:20)
[2022-08-22] MEDS: CITALOPRAM HYDROBROMIDE 20 MG TAB PO SCH (08:20)
[2022-08-22] MEDS: amLODIPine 10 MG TAB PO SCH (08:20)
[2022-08-22] MEDS: APIXABAN 5 MG TAB PO SCH ×2 (08:27→20:28)
[2022-08-22 10:27] LABS: Basophils % (A) 0 %; Eosinophils # (A) 0.2 k/uL (0-0.7); Eosinophils % (A) 3 %; HCT 35.7 % (34.0-46.0); HGB 12.1 gm/dL (11.4-16.0); Lymphocytes # (A) 0.8 k/uL (1.0-4.8); Lymphocytes % (A) 12 %; MCH 32.7 pg (25.0-35.0); MCHC 33.8 g/dL (31.0-37.0); MCV 96.8 fL (80.0-100.0); Mean Platelet Volume 7.1; Monocytes # (A) 0.5 k/uL (0-1.0); Monocytes % (A) 7 %; Neutrophils # (A) 5.3 k/uL (1.3-7.7); Neutrophils % (A) 75 %; Platelet Count 407 k/uL (150-450); RBC 3.69 m/uL (3.80-5.40); RDW 12.8 % (11.5-15.5); WBC 7.1 k/uL (3.8-10.6)
[2022-08-22 10:42] LABS: ALT 15 U/L (4-34); AST 27 U/L (14-36); African American GFR (CKD) >90 (>60 ml/min/1.73 sqM); Albumin 3.3 g/dL (3.5-5.0); Alkaline Phosphatase 69 U/L (38-126); Anion Gap 6 mmol/L; Blood Urea Nitrogen 6 mg/dL (7-17); Calcium 7.8 mg/dL (8.4-10.2); Carbon Dioxide 31 mmol/L (22-30); Chloride 90 mmol/L (98-107); Glucose 103 mg/dL (74-99); Non-African American GFR(CKD) 81 (>60 ml/min/1.73 sqM); Potassium 3.8 mmol/L (3.5-5.1); Sodium 127 mmol/L (137-145); Total Bilirubin 0.5 mg/dL (0.2-1.3)
[2022-08-22] MEDS ORDERED: traMADol 50 MG TAB PO PRN (11:16)
[2022-08-22] MEDS: HYDROcodone/APAP 7.5-325MG 1 EACH TAB PO PRN ×2 (13:42→22:24)
--- NOTE | 2022-08-22 16:24 | P.PN ---
Subjective Progress Note Date: 08/22/22 Patient is pleasant 87-year-old female with history of paroxysmal A. fib, hypertension, hyperlipidemia, valvular heart disease and recent hammertoe surgery presented to [facility] with left foot/toe pain and shortness of breath. Patient did have hammer toe surgery performed about 3 weeks ago on the third and fourth digits in her left foot at [facility]. Patient did follow with her foot/ankle surgeon over the past few weeks. Patient says that the left second toe began to turn purple several days after the surgery was performed and began to get darker in color and about the last week she noticed the toe began to change to black in color. Patient describes the pain in the left total/foot as aching and rates it as 6/10 currently. Patient was worked up in the ER, x-ray of the foot showed erosion versus surgically absent fourth digit middle phalanx as well as erosive changes to the amputation site of the fourth digit proximal phalanx concerning for osteomyelitis. Chest x-ray showed pulmonary condition, CTA chest was negative for PE. Patient was started on IV antibiotics and IV diuretics and was admitted to hospitalist service 08/20. Patient seen and examined. Has some pain in left foot but states that it is tolerable. Denies any shortness of breath. Vital signs stable. Case discussed with nursing staff 08/21. Patient seen and examined. Status post second toe amputation. Currently laying comfortably in the bed. Denies any nausea or vomiting 08/22/2022 Patient doing well today, sitting up in chair. Does report pain 8/10 achy to the left foot. She is currently getting IV dilaudid every 4 hours, with tylenol. Goal today will be to transition to oral pain medication. Plan for possible DC home tomorrow. Patient continues to do well on oral lasix, no shortness of breath. Sodium today 127 which is about stable since admission. Patient was initially receiving IV diuretics, recommend holding lasix and repeat sodium level tomorrow. Losartan remains on hold, continues on amlodipine. Monitor diastolic pressure, consider decreasing dose of amlodipine to avoid falls as there is increased risk in elderly population with diastolic blood pressure less than 60. On room air. Review of Systems Constitutional: Denied any fatigue denied any fever. Cardio vascular: denied any chest pain, palpitations Gastrointestinal: denied any nausea, vomiting, diarrhea Pulmonary: Denied any shortness of breath cough Neurologic denied any new focal deficits All inpatient medications were reviewed and appropriate changes in these medications as dictated in the interval history and assessment and plan. PHYSICAL EXAMINATION: GENERAL: The patient is alert and oriented x3, not in any acute distress. Well developed, well nourished. HEENT: Pupils are round and equally reacting to light. EOMI. No scleral icterus. No conjunctival pallor. Normocephalic, atraumatic. No pharyngeal erythema. No thyromegaly. CARDIOVASCULAR: S1 and S2 present. No murmurs, rubs, or gallops. PULMONARY: Chest is clear to auscultation, no wheezing or crackles. ABDOMEN: Soft, nontender, nondistended, normoactive bowel sounds. No palpable organomegaly. MUSCULOSKELETAL: No joint swelling or deformity. EXTREMITIES: Left foot dressing with kerlex in tact. NEUROLOGICAL: Gross neurological examination did not reveal any focal deficits. SKIN: No rashes. 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 Paroxysmal A. fib currently sinus rhythm Hypertension Hyperlipidemia History of valvular heart disease GI Prophylaxis DVT Prophylaxis Eliquis has been resumed today. Full Code PLAN Pain management, transition to oral pain medication today Continue with IV dilaudid for breakthrough pain. Follow up sodium level in the AM Continue on IV ceftriaxone Follow up cultures and ID recommendations Possible D/C home with homecare tomorrow The impression and plan of care has been dictated by Nurse Jovi Pra ctitioner as directed. Dr. Whit MD I have performed a history and physical examination and medical decision making of this patient, discussed the same with the dictator, and agree with the dictat ors assessment and plan as written, documented as a scribe. Based on total visit time, I have performed more than 50% of this visit. Objective - Vital Signs Vital signs: Vital Signs Temp 98.1 F 08/22/22 04:00 Pulse 82 08/22/22 04:00 Resp 15 08/22/22 04:00 BP 135/54 08/22/22 04:00 Pulse Ox 98 08/22/22 04:00 FiO2 Intake & Output 08/21/22 08/22/22 08/22/22 18:59 06:59 18:59 Intake Total 550 740 0 Output Total 302 575 Balance 248 165 0 Weight 65 kg Intake: IV 550 50 cefTRIAXone 1 gm In 50 Sodium Chloride 0.9% 50 ml @ 100 mls/hr IVPB Q12HR [facility] Rx#:[id number] Oral 690 0 Output: Urine 300 575 Estimated Blood Loss 2 Other: Voiding Method Bedside Commode Bedpan # Voids 1 3 1 - Labs CBC & Chem 7: 08/22/22 09:22 08/22/22 09:22 Labs: Abnormal Lab Results - Last 24 Hours (Table) 08/21/22 08/21/22 Range/Units 11:42 11:42 RBC 3.71 L (3.80-5.40) m/uL Lymphocytes # 0.8 L (1.0-4.8) k/uL Sodium 128 L (137-145) mmol/L Chloride 91 L (98-107) mmol/L Carbon Dioxide 32 H (22-30) mmol/L BUN 5 L (7-17) mg/dL Glucose 111 H (74-99) mg/dL Calcium 7.7 L (8.4-10.2) mg/dL Total Protein 5.9 L (6.3-8.2) g/dL Albumin 3.3 L (3.5-5.0) g/dL Microbiology - Last 24 Hours (Table) 08/21/22 08:40 Gram Stain - Preliminary Toe - Left Second Wound Culture - Preliminary 08/21/22 08:40 Anaerobic Culture - Preliminary Toe - Left Second 08/18/22 12:40 Blood Culture - Preliminary Blood No Growth after 72 hours Assessment and Plan Time with Patient: Less than 30
[2022-08-22] MEDS: ATORVASTATIN 10 MG TAB PO SCH (20:28)
[2022-08-22] MEDS: FAMOTIDINE 20 MG TAB PO SCH (20:28)
--- NOTE | 2022-08-22 23:51 | PN ---
PROGRESS NOTE SUBJECTIVE: The patient is an 87-year-old female, patient had intervention for hammertoe, left foot. The patient developed gangrene of the left foot 2nd toe and there is some scab formation noted on 3rd and 4th toe. The patient had second toe amputation. Today we have changed the dressing. Incision site is clean. No discharge or redness noted. The patient is on IV antibiotic under care of Infectious Disease, deep culture was sent, placement is pending. We will change the dressing on Monday. MMODL / IJN: [id number] /
[2022-08-23] MEDS: HYDROmorphone 0.5 MG/0.5 ML SYRINGE IVP PRN (05:11)
[2022-08-23] MEDS: APIXABAN 5 MG TAB PO SCH ×2 (08:17→20:14)
[2022-08-23] MEDS: CITALOPRAM HYDROBROMIDE 20 MG TAB PO SCH (08:17)
[2022-08-23] MEDS: FAMOTIDINE 20 MG TAB PO SCH ×2 (08:17→20:14)
[2022-08-23] MEDS: FERROUS SULFATE 325 MG TAB PO SCH (08:17)
[2022-08-23] MEDS: METOPROLOL TARTRATE 12.5 MG TAB PO SCH ×2 (08:17→20:14)
[2022-08-23] MEDS: LORATADINE 10 MG TAB PO SCH (08:17)
[2022-08-23] MEDS: amLODIPine 10 MG TAB PO SCH (08:17)
[2022-08-23] MEDS: ASPIRIN 325 MG TAB PO SCH (08:17)
[2022-08-23] MEDS: HYDROcodone/APAP 7.5-325MG 1 EACH TAB PO PRN ×3 (10:05→22:49)
[2022-08-23] MEDS: SODIUM CHLORIDE 0.9% 1,000 ML IV SCH (12:54)
--- NOTE | 2022-08-23 13:19 | P.PN ---
Subjective Progress Note Date: 08/23/22 Patient is pleasant 87-year-old female with history of paroxysmal A. fib, hypertension, hyperlipidemia, valvular heart disease and recent hammertoe surgery presented to [facility] with left foot/toe pain and shortness of breath. Patient did have hammer toe surgery performed about 3 weeks ago on the third and fourth digits in her left foot at [facility]. Patient did follow with her foot/ankle surgeon over the past few weeks. Patient says that the left second toe began to turn purple several days after the surgery was performed and began to get darker in color and about the last week she noticed the toe began to change to black in color. Patient describes the pain in the left total/foot as aching and rates it as 6/10 currently. Patient was worked up in the ER, x-ray of the foot showed erosion versus surgically absent fourth digit middle phalanx as well as erosive changes to the amputation site of the fourth digit proximal phalanx concerning for osteomyelitis. Chest x-ray showed pulmonary condition, CTA chest was negative for PE. Patient was started on IV antibiotics and IV diuretics and was admitted to hospitalist service 08/20. Patient seen and examined. Has some pain in left foot but states that it is tolerable. Denies any shortness of breath. Vital signs stable. Case discussed with nursing staff 08/21. Patient seen and examined. Status post second toe amputation. Currently laying comfortably in the bed. Denies any nausea or vomiting 08/22/2022 Patient doing well today, sitting up in chair. Does report pain 8/10 achy to the left foot. She is currently getting IV dilaudid every 4 hours, with tylenol. Goal today will be to transition to oral pain medication. Plan for possible DC home tomorrow. Patient continues to do well on oral lasix, no shortness of breath. Sodium today 127 which is about stable since admission. Patient was initially receiving IV diuretics, recommend holding lasix and repeat sodium level tomorrow. Losartan remains on hold, continues on amlodipine. Monitor diastolic pressure, consider decreasing dose of amlodipine to avoid falls as there is increased risk in elderly population with diastolic blood pressure less than 60. On room air. 08/23/2022 Patient ambulating in room today. Reports improvement in pain with oral medications. Receiving norco about every 8 hours and IV dilaudid about once per shift. Recommend alternating tramadol and norco prior to giving dilaudid. Lasix currently on hold, sodium 126 today. Patient will be gently hydrated and repeat sodium level tomorrow. Vascular services planning to change dressing again tomorrow. Remains on IV ceftriaxone, deep wound culture pending. Review of Systems Constitutional: Denied any fatigue denied any fever. Cardio vascular: denied any chest pain, palpitations Gastrointestinal: denied any nausea, vomiting, diarrhea Pulmonary: Denied any shortness of breath cough Neurologic denied any new focal deficits All inpatient medications were reviewed and appropriate changes in these medications as dictated in the interval history and assessment and plan. PHYSICAL EXAMINATION: GENERAL: The patient is alert and oriented x3, not in any acute distress. Well developed, well nourished. HEENT: Pupils are round and equally reacting to light. EOMI. No scleral icterus. No conjunctival pallor. Normocephalic, atraumatic. No pharyngeal erythema. No thyromegaly. CARDIOVASCULAR: S1 and S2 present. No murmurs, rubs, or gallops. PULMONARY: Chest is clear to auscultation, no wheezing or crackles. ABDOMEN: Soft, nontender, nondistended, normoactive bowel sounds. No palpable organomegaly. MUSCULOSKELETAL: No joint swelling or deformity. EXTREMITIES: Left foot dressing with kerlex/yuri in tact. NEUROLOGICAL: Gross neurological examination did not reveal any focal deficits. SKIN: No rashes. 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 fib currently sinus rhythm Hypertension Hyperlipidemia History of valvular heart disease GI Prophylaxis DVT Prophylaxis Eliquis has been resumed Full Code PLAN Pain management, continue with tramadol and norco. Continue with IV dilaudid for breakthrough pain. IV fluids Follow up sodium level in the AM Continue on IV ceftriaxone Follow up cultures and ID recommendations Home with homecare on discharge The impression and plan of care has been dictated by Fouzia Caldwell Nurse Practitioner as directed. Dr. Whit MD I have performed a history and physical examination and medical decision making of this patient, discussed the same with the dictator, and agree with the dictators assessment and plan as written, documented as a scribe. Based on total visit time, I have performed more than 50% of this visit. Objective - Vital Signs Vital signs: Vital Signs Temp 98.1 F 08/23/22 08:10 Pulse 78 08/23/22 08:10 Resp 16 08/23/22 08:10 BP 135/61 08/23/22 08:10 Pulse Ox 95 08/23/22 08:10 FiO2 Intake & Output 08/22/22 08/23/22 08/23/22 18:59 06:59 18:59 Intake Total 530 618 118 Output Total 650 Balance 530 -32 118 Intake: IV 50 cefTRIAXone 1 gm In 50 Sodium Chloride 0.9% 50 ml @ 100 mls/hr IVPB Q12HR [facility] Rx#:[id number] Intake, IV Titration 500 Amount Sodium Chloride 0.9% 100 500 ml @ 0 mls/hr IV .STK-MED ONE with ceFAZolin 2,000 mg Rx#:[id number] Oral 480 118 118 Output: Urine 650 Other: Voiding Method Bedpan Toilet # Voids 2 1 - Labs CBC & Chem 7: 08/22/22 09:22 08/23/22 07:54 Labs: Abnormal Lab Results - Last 24 Hours (Table) 08/22/22 08/22/22 08/23/22 Range/Units 09:22 09:22 07:54 RBC 3.69 L (3.80-5.40) m/uL Lymphocytes # 0.8 L (1.0-4.8) k/uL Sodium 127 L 126 L (137-145) mmol/L Chloride 90 L (98-107) mmol/L Carbon Dioxide 31 H (22-30) mmol/L BUN 6 L (7-17) mg/dL Glucose 103 H (74-99) mg/dL Calcium 7.8 L (8.4-10.2) mg/dL Total Protein 6.0 L (6.3-8.2) g/dL Albumin 3.3 L (3.5-5.0) g/dL Microbiology - Last 24 Hours (Table) 08/18/22 12:40 Blood Culture - Preliminary Blood No Growth after 96 hours 08/18/22 12:25 Blood Culture Gram Stain - Final Blood Blood Culture - Final Staph hominis sub sp. hominis 08/21/22 08:40 Gram Stain - Preliminary Toe - Left Second Wound Culture - Preliminary Assessment and Plan Time with Patient: Less than 30
[2022-08-23] MEDS: ATORVASTATIN 10 MG TAB PO SCH (20:14)
--- NOTE | 2022-08-23 23:16 | PN ---
PROGRESS NOTE HISTORY OF PRESENT ILLNESS: Edie is an 87-year-old lady who is admitted to hospital with gangrene of the left foot for which she underwent amputation. Has history of paroxysmal atrial fibrillation, hypertension, dyslipidemia, and valvular heart disease. She initially underwent surgery for a hammertoe and subsequently developed gangrene. This morning she is feeling better. Her congestive heart failure has resolved. She is free of any cardiac symptoms. Her pain is well controlled. CURRENT MEDICATIONS: 1. Norvasc. 2. Eliquis. 3. Lipitor. 4. Lopressor. PHYSICAL EXAMINATION: GENERAL: Comfortable at rest. VITAL SIGNS: Stable. CHEST: Reveals good air entry bilaterally. HEART: Reveals first and second heart sounds and an early diastolic murmur in the aortic area. ABDOMEN: Soft. EXTREMITIES: Did not reveal any edema. Left foot is status post surgery. ASSESSMENT AND PLAN: Congestive heart failure, paroxysmal atrial fibrillation, status post partial left toe amputation, hypertension, dyslipidemia. The patient is doing well. I will continue her on her current medications. Hopefully home tomorrow. MMODL / IJN: [id number] /
[2022-08-24] MEDS: SODIUM CHLORIDE 0.9% 1,000 ML IV SCH (04:09)
[2022-08-24] MEDS: HYDROcodone/APAP 7.5-325MG 1 EACH TAB PO PRN ×2 (04:54→11:25)
--- NOTE | 2022-08-24 06:30 | P.PN ---
Subjective Progress Note Date: 08/22/22 Principal diagnosis: Left 2nd necrotic toe Patient is a 87-year-old female who recently did have a left fourth toe hammertoes deformity surgery subsequently developing discoloration to the left second toe for the patient presented to the hospital. Patient is status post amputation of the left second toe completed by vascular surgery as of 08/21/2022 On today's evaluation that is 08/22/2022 patient remains to be afebrile, the patient pain to the left second toe amputation site is controlled, the patient denies having any chest pain or shortness of breath or cough no abdominal pain or diarrhea Objective - Vital Signs Vital signs: Vital Signs Temp 98.7 F 08/22/22 08:20 Pulse 80 08/22/22 08:20 Resp 16 08/22/22 08:20 BP 120/60 08/22/22 08:20 Pulse Ox 94 L 08/22/22 08:20 FiO2 Intake & Output 08/21/22 08/22/22 08/22/22 18:59 06:59 18:59 Intake Total 550 740 0 Output Total 302 575 Balance 248 165 0 Weight 65 kg Intake: IV 550 50 cefTRIAXone 1 gm In 50 Sodium Chloride 0.9% 50 ml @ 100 mls/hr IVPB Q12HR [facility] Rx#:[id number] Oral 690 0 Output: Urine 300 575 Estimated Blood Loss 2 Other: Voiding Method Bedside Commode Bedpan Bedpan # Voids 1 3 1 - Exam GENERAL DESCRIPTION elderly female lying in bed, no distress. No tachypnea or accessory muscle of respiration use. LUNGS: Unlabored breathing. Clear to auscultation anteriorly. No wheeze or crackle. HEART: S1, S2, regular rate and rhythm. No loud murmur ABDOMEN: Soft, no tenderness EXTREMITIES: Left wound is currently dressed in a wound dressing no drainage on the dressing - Labs CBC & Chem 7: 08/22/22 09:22 08/23/22 07:54 Labs: Abnormal Lab Results - Last 24 Hours (Table) 08/21/22 08/22/22 08/22/22 Range/Units 11:42 09:22 09:22 RBC 3.69 L (3.80-5.40) m/uL Lymphocytes # 0.8 L (1.0-4.8) k/uL Sodium 128 L 127 L (137-145) mmol/L Chloride 91 L 90 L (98-107) mmol/L Carbon Dioxide 32 H 31 H (22-30) mmol/L BUN 5 L 6 L (7-17) mg/dL Glucose 111 H 103 H (74-99) mg/dL Calcium 7.7 L 7.8 L (8.4-10.2) mg/dL Total Protein 5.9 L 6.0 L (6.3-8.2) g/dL Albumin 3.3 L 3.3 L (3.5-5.0) g/dL Microbiology - Last 24 Hours (Table) 08/21/22 08:40 Gram Stain - Preliminary Toe - Left Second Wound Culture - Preliminary 08/21/22 08:40 Anaerobic Culture - Preliminary Toe - Left Second 08/18/22 12:40 Blood Culture - Preliminary Blood No Growth after 72 hours Assessment and Plan (1) Necrosis of toe Current Visit: Yes Status: Acute Code(s): I96 - GANGRENE, NOT ELSEWHERE CLASSIFIED SNOMED Code(s): 072810654 Plan: 1patient with dry gangrene to the left second toe in this patient who did have a hammertoe deformity surgery completed about 3 weeks ago patient is currently afebrile white count is normal clinically doubt secondary infectious etiology. 2patient has been evaluated by vascular surgery and the patient is status post amputation of the left second toe completed on 08/21/2022 and local cultures which are currently pending 3-positive blood culture with staph epi likely skin contamination 3Patient to continue with Rocephin and monitor clinical course closely Time with Patient: Less than 30
--- NOTE | 2022-08-24 06:31 | P.PN ---
Subjective Progress Note Date: 08/23/22 Principal diagnosis: Left 2nd necrotic toe Patient is a 87-year-old female who recently did have a left fourth toe hammertoes deformity surgery subsequently developing discoloration to the left second toe for the patient presented to the hospital. Patient is status post amputation of the left second toe completed by vascular surgery as of 08/21/2022 On today's evaluation that is 08/23/2022 patient continues to be afebrile, the patient pain to the left second toe amputation site is controlled, the patient denies having any chest pain or shortness of breath or cough no abdominal pain or diarrhea, no new symptoms overall feeling better Objective - Vital Signs Vital signs: Vital Signs Temp 98.1 F 08/23/22 08:10 Pulse 78 08/23/22 08:10 Resp 16 08/23/22 08:10 BP 135/61 08/23/22 08:10 Pulse Ox 95 08/23/22 08:10 FiO2 Intake & Output 08/22/22 08/23/22 08/23/22 18:59 06:59 18:59 Intake Total 530 618 236 Output Total 650 Balance 530 -32 236 Intake: IV 50 cefTRIAXone 1 gm In 50 Sodium Chloride 0.9% 50 ml @ 100 mls/hr IVPB Q12HR [facility] Rx#:[id number] Intake, IV Titration 500 Amount Sodium Chloride 0.9% 100 500 ml @ 0 mls/hr IV .STK-MED ONE with ceFAZolin 2,000 mg Rx#:[id number] Oral 480 118 236 Output: Urine 650 Other: Voiding Method Bedpan Toilet Toilet # Voids 2 1 - Exam GENERAL DESCRIPTION elderly female lying in bed, no distress. No tachypnea or accessory muscle of respiration use. LUNGS: Unlabored breathing. Clear to auscultation anteriorly. No wheeze or crackle. HEART: S1, S2, regular rate and rhythm. No loud murmur ABDOMEN: Soft, no tenderness EXTREMITIES: Left wound is currently dressed in a wound dressing no drainage on the dressing - Labs CBC & Chem 7: 08/22/22 09:22 08/23/22 07:54 Labs: Abnormal Lab Results - Last 24 Hours (Table) 08/23/22 Range/Units 07:54 Sodium 126 L (137-145) mmol/L Microbiology - Last 24 Hours (Table) 08/21/22 08:40 Anaerobic Culture - Preliminary Toe - Left Second 08/21/22 08:40 Gram Stain - Final Toe - Left Second Wound Culture - Final 08/18/22 12:40 Blood Culture - Preliminary Blood No Growth after 96 hours 08/18/22 12:25 Blood Culture Gram Stain - Final Blood Blood Culture - Final Staph hominis sub sp. hominis Assessment and Plan (1) Necrosis of toe Current Visit: Yes Status: Acute Code(s): I96 - GANGRENE, NOT ELSEWHERE CLASSIFIED SNOMED Code(s): 270985679 Plan: 1patient with dry gangrene to the left second toe in this patient who did have a hammertoe deformity surgery completed about 3 weeks ago patient is currently afebrile white count is normal clinically doubt secondary infectious etiology. 2patient has been evaluated by vascular surgery and the patient is status post amputation of the left second toe completed on 08/21/2022 and local cultures which are currently pending 3-positive blood culture with staph epi likely skin contamination 3Patient is slowly clinically improving and will to continue with Rocephin while inpatient and a short course of Keflex on discharge Time with Patient: Less than 30
--- NOTE | 2022-08-24 07:46 | P.PN ---
Progress Note - Text 87-year-old pleasant female patient had a left foot second toe amputation for gangrene there is some scab formation noted and third and fourth toe incision site is healing good no discharge redness noted after changing the dressing today from surgical point of view patient can go home if his okay with infectious disease I was asked see her in my office on Monday with changing the dressing and then advised to have a nonweightbearing of the left foot
[2022-08-24] MEDS ORDERED: LOSARTAN 50 MG TAB PO STA (08:46)
[2022-08-24] MEDS: CITALOPRAM HYDROBROMIDE 20 MG TAB PO SCH (09:11)
[2022-08-24] MEDS: APIXABAN 5 MG TAB PO SCH (09:11)
[2022-08-24] MEDS: FAMOTIDINE 20 MG TAB PO SCH (09:11)
[2022-08-24] MEDS: METOPROLOL TARTRATE 12.5 MG TAB PO SCH (09:11)
[2022-08-24] MEDS: FERROUS SULFATE 325 MG TAB PO SCH (09:11)
[2022-08-24] MEDS: ASPIRIN 325 MG TAB PO SCH (09:11)
[2022-08-24] MEDS: amLODIPine 10 MG TAB PO SCH (09:11)
[2022-08-24] MEDS: LORATADINE 10 MG TAB PO SCH (09:11)
[2022-08-24 09:20] VITALS: RESP 18; TEMP 98.5
[2022-08-24 12:38] VITALS: BP 145/55; PULSE 71
[2022-08-24 13:23] LABS: African American GFR (CKD) >90 (>60 ml/min/1.73 sqM); Anion Gap 7 mmol/L; Blood Urea Nitrogen 8 mg/dL (7-17); Calcium 8.3 mg/dL (8.4-10.2); Carbon Dioxide 26 mmol/L (22-30); Chloride 96 mmol/L (98-107); Glucose 161 mg/dL (74-99); Non-African American GFR(CKD) 84 (>60 ml/min/1.73 sqM); Potassium 3.7 mmol/L (3.5-5.1); Sodium 129 mmol/L (137-145)
[2022-08-24] MEDS ORDERED: LOSARTAN 50 MG TAB PO SCH (21:00)
--- NOTE | 2022-08-24 23:01 | PN ---
PROGRESS NOTE SUBJECTIVE: An 87-year-old lady who underwent amputation involving left toe. Feeling better, clinically doing well. OBJECTIVE: VITAL SIGNS: Heart rate is 70 beats per minute, blood pressure is 145/50, respiratory rate is 18, and O2 saturation is 96% on room air. NECK: There is no jugular venous distention. CHEST: Reveals good air entry bilaterally. HEART: Reveals first and second heart sounds. No gallop. EXTREMITIES: Reveal left foot status post amputation. LABS: Show that the hemoglobin is 12.1, her sodium is still low at 126, creatinine is 0.6. ASSESSMENT: 1. Status post left partial toe amputation. 2. Hypertension. 3. Dyslipidemia. 4. Paroxysmal atrial fibrillation. 5. Chronic congestive heart failure. 6. Chronic diastolic heart failure. PLAN: I will continue her on her current medications, stable for discharge from cardiac standpoint. MMODL / IJN: [id number] /
--- NOTE | 2022-08-26 22:25 | P.DS ---
Providers Date of admission: 08/18/22 14:39 Attending physician: Benigno Ordaz MD Consults: 08/18/22 14:30 Consult Physician Urgent Consulting Provider: Rupal Elliott Consult Reason/Comments: necrotic toe Do you want consulting provider notified?: Yes 08/18/22 14:35 Consult Physician Urgent Consulting Provider: Tenzin Mendez Consult Reason/Comments: necrotic toe Do you want consulting provider notified?: Yes 08/18/22 14:37 Consult Physician Routine Consulting Provider: Randolph Gomez Consult Reason/Comments: chf Do you want consulting provider notified?: Yes 08/19/22 10:33 Consult Physician Routine Consulting Provider: Randolph Gomez Consult Reason/Comments: necrotic toe Do you want consulting provider notified?: Yes 08/19/22 23:59 Consult Physician Routine Consulting Provider: Darell Cruz Consult Reason/Comments: left 2nd toe gangrene Do you want consulting provider notified?: Yes Primary care physician: Grupo Tinoco [facility] Course: Final Diagnosis 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 fib currently sinus rhythm anticoagulated with eliquis Hypertension Hyperlipidemia History of valvular heart disease Full Code Discharge Disposition Patient is stable for discharge home with homecare services in place. Patient to keep left foot dressing in place and follow up with Dr. Cruz in the office on discharge. Patient is discharged on short course of oral keflex. Patient is recommended to discontinue chlorthalidone and also to hold lasix until follow up basic metabolic panel to monitor sodium level. Current sodium 129 today. Patient is recommended to follow up with nephrology for hyponatremia, follow up with cardiology, Dr. Elliott with infectious disease and also follow up with primary care Dr. Grupo Tinoco in 1 to 2 days. Hospital course This is a pleasant 87 year old female with medical history of hypertension, hyperlipidemia, valvular heart disease, paroxysmal atrial fibrillation, heart failure. Patient presents with concern for infection and increased pain to left foot/toe pain and shortness of breath. Patient did have hammer toe surgery performed about 3 weeks ago on the third and fourth digits in her left foot at [facility]. Patient did follow with her foot/ankle surgeon over the past few weeks. Patient says that the left second toe began to turn purple several days after the surgery was performed and began to get darker in color and about the last week she noticed the toe began to change to black in color. Patient describes the pain in the left total/foot as aching and rates it as 6/10 currently. Patient was worked up in the ER, x-ray of the foot showed erosion versus surgically absent fourth digit middle phalanx as well as erosive changes to the amputation site of the fourth digit proximal phalanx concerning for osteomyelitis. Chest x-ray showed pulmonary congestion, CTA chest was negative for PE. Patient was started on IV antibiotics and IV diuretics and was admitted to hospitalist service. Patient was evaluated by vascular services and underwent left second toe amputation secondary to dry gangrene on 08/21. She as also worked up by cardiology for possible acute CHF. Echocardiogram showing EF 55 to 60% with mild pulmonary hypertension, trace to mild mitral regurgitation, mild tricuspid regurgitation. Patient was diuresed with IV lasix and transitioned to oral lasix however sodium level dropped to 126. Patient was gently hydrated and lasix placed on hold. Sodium improved to 129. Lasix and chlorthalidone held on discharge until follow up labwork. Surgical cultures came back negative. Initial blood culture showing staph hominis however blood culture taken 15 min later was found to be negative. Patient was discharged on short course of oral keflex and will follow up with infectious disease on discharge. Pain has been managed with oral pain medication. Vascular surgery did dressing changed on Thursday 08/23 with no acute issues with surgical site and cleared for discharge. Patient will see Dr Cruz on 08/26/22 in the wound care center. Patient will be discharged home. 08/24/2022 Patient is evaluated today ambulating in room. Weight bearing status is nonweight bearing to left foot she may use heel to pivot. She is tolerating activity and reports pain improving down to a 3/10 dull ache and is being controlled with norco. She denies chest pain, denies shortness of breath. No numbness or tingling to left lower extremity. Lungs are clear, S1 S2 auscultated and there is no peripheral edema noted. Alert x 3, focal neurological exam is negative. Most recent labs showing sodium of 129, potassium 3.7, BUN 8, creatinine 0.59, glucose 161. proBNP 636. White blood cell count has remained normal this admission. Patient has remained afebrile, heart rate 71, blood pressure 145/55, 97% room air. Patient will be discharged with above mentioned recommendations. Total time taken in discharge planning greater than 35 minutes. Please see medication reconciliation for a list of current medication. Thank you for allowing us to participate in the care of this patient. The impression and plan of care has been dictated by Fouzia Caldwell, Nurse Practitioner as directed. Dr. Whit MD I have performed a history and physical examination and medical decision making of this patient, discussed the same with the dictator, and agree with the dictators assessment and plan as written, documented as a scribe. Based on total visit time, I have performed more than 50% of this visit. Patient Condition at Discharge: Stable Plan - Discharge Summary Discharge Rx Participant: No New Discharge Prescriptions: New Cephalexin [Keflex] 500 mg PO Q6HR 4 Days #16 cap Mag Hydrox/Al Hydrox/Simeth [Maalox] 15 ml PO Q6HR PRN ml PRN Reason: Indigestion Aspirin 325 mg PO DAILY tab HYDROcodone/APAP 7.5-325MG [Cornish 7.5-325] 1 each PO Q6HR PRN 3 Days #12 tab PRN Reason: Pain 7-10 Famotidine [Pepcid] 20 mg PO BID #20 tab traMADol HCl [Ultram] 50 mg PO QID PRN 3 Days #12 tab PRN Reason: Mild To Moderate Pain (1 - 6) Furosemide [Lasix] 40 mg PO DAILY #30 tablet Continue Loratadine [Claritin] 10 mg PO DAILY Calcium Carbonate/Vitamin D3 [Calcium 500-Vit D3 5 Mcg (200 Iu)] 1 tab PO BID Multivitamins, Thera [Multivitamin (formulary)] 1 tab PO DAILY Citalopram Hydrobromide [CeleXA] 20 mg PO DAILY Atorvastatin [Lipitor] 10 mg PO HS Vit C/E/Zn/Coppr/Lutein/Zeaxan [Preservision Areds 2 Softgel] 1 cap PO BID Ferrous Sulfate [Feosol] 325 mg PO DAILY #30 tab Apixaban [Eliquis] 5 mg PO BID #60 tab Losartan Potassium 100 mg PO HS amLODIPine [Norvasc] 10 mg PO DAILY #30 tab Metoprolol Tartrate [Lopressor] 12.5 mg PO BID #60 Acetaminophen-Codeine 300-30mg [Tylenol w/codeine #3] 1 tab PO Q6H PRN PRN Reason: Pain Discontinued Chlorthalidone 25 mg PO DAILY HYDROcodone/APAP 10-325MG [Cornish 10-325] 1 tab PO Q6HR PRN PRN Reason: Pain Amoxic-Pot Clav 500-125 mg [Augmentin 500-125 mg] 1 tab PO Q12HR Discharge Medication List Atorvastatin [Lipitor] 10 mg PO HS 07/10/18 [History] Calcium Carbonate/Vitamin D3 [Calcium 500-Vit D3 5 Mcg (200 Iu)] 1 tab PO BID 07/10/18 [History] Citalopram Hydrobromide [CeleXA] 20 mg PO DAILY 07/10/18 [History] Loratadine [Claritin] 10 mg PO DAILY 07/10/18 [History] Multivitamins, Thera [Multivitamin (formulary)] 1 tab PO DAILY 07/10/18 [History] Vit C/E/Zn/Coppr/Lutein/Zeaxan [Preservision Areds 2 Softgel] 1 cap PO BID 07/10/18 [History] Ferrous Sulfate [Feosol] 325 mg PO DAILY #30 tab 07/18/18 [Rx] Apixaban [Eliquis] 5 mg PO BID #60 tab 03/31/19 [Rx] Losartan Potassium 100 mg PO HS 06/19/22 [History] Metoprolol Tartrate [Lopressor] 12.5 mg PO BID #60 06/21/22 [Rx] amLODIPine [Norvasc] 10 mg PO DAILY #30 tab 06/21/22 [Rx] Acetaminophen-Codeine 300-30mg [Tylenol w/codeine #3] 1 tab PO Q6H PRN 08/18/22 [History] Aspirin 325 mg PO DAILY tab 08/24/22 [Rx] Cephalexin [Keflex] 500 mg PO Q6HR 4 Days #16 cap 08/24/22 [Rx] Famotidine [Pepcid] 20 mg PO BID #20 tab 08/24/22 [Rx] Furosemide [Lasix] 40 mg PO DAILY #30 tablet 08/24/22 [Rx] HYDROcodone/APAP 7.5-325MG [Cornish 7.5-325] 1 each PO Q6HR PRN 3 Days #12 tab 08/24/22 [Rx] Mag Hydrox/Al Hydrox/Simeth [Maalox] 15 ml PO Q6HR PRN ml 08/24/22 [Rx] traMADol HCl [Ultram] 50 mg PO QID PRN 3 Days #12 tab 08/24/22 [Rx] Follow up Appointment(s)/Referral(s): Sunshine Corea MD [STAFF PHYSICIAN] - 1 Week [facility], [NON-STAFF] - 1 Week Lucho Vallejo DO [STAFF PHYSICIAN] - 1 Week Darell Cruz MD [STAFF PHYSICIAN] - 08/26/22 9:45 am Rupal Elliott MD [STAFF PHYSICIAN] - 09/05/22 2:00 pm Grupo Tinoco MD [Primary Care Provider] - Ambulatory/Diagnostic Orders: Basic Metabolic Panel [LAB.AMB] Time Frame: 2 Days, Location: None Selected Patient Instructions/Handouts: Heart Failure (DC) Activity/Diet/Wound Care/Special Instructions: Patient needs follow up with Dr Cruz on Monday in office Non-weight bearing on left foot Follow up with Dr Cruz in the office on Monday for dressing change Continue oral keflex for a short course on discharge Recommend to follow up with primary care in 1 to 2 days Continue norco for pain management and can alternate with tramadol for breakthrough pain. Discontinue chlorthalidone, recommend to hold lasix until repeat lab work pending sodium level. Follow up with nephrology outpatient regarding low sodium. Discharge Disposition: HOME WITH HOME HEALTH SERVICES
== END 2022-08-24 15:01 | disposition home health service (06) | DRG 856 ==
LOC: EC 11:40 → 3SCARD 14:39
PROVIDERS: ADMIT Internal Medicine; ATTEND Internal Medicine
PROC: 0Y6S0Z0 Detachment at Left 2nd Toe, Complete, Open Approach (ICD-10-PCS; principal; 2022-08-21 08:00)
DX: T81.40XA Infection following a procedure, unspecified, initial encounter (principal); I50.33 Acute on chronic diastolic (congestive) heart failure; I96 Gangrene, not elsewhere classified; I38 Endocarditis, valve unspecified; E22.2 Syndrome of inappropriate secretion of antidiuretic hormone; T50.2X5A Adverse effect of carbonic-anhydrase inhibitors, benzothiadiazides and other diuretics, initial encounter; K90.0 Celiac disease; L89.899 Pressure ulcer of other site, unspecified stage; H35.30 Unspecified macular degeneration; H91.90 Unspecified hearing loss, unspecified ear; I11.0 Hypertensive heart disease with heart failure; E78.5 Hyperlipidemia, unspecified; E86.1 Hypovolemia; I48.0 Paroxysmal atrial fibrillation; Z79.01 Long term (current) use of anticoagulants; Z79.899 Other long term (current) drug therapy; Z85.828 Personal history of other malignant neoplasm of skin; Z87.891 Personal history of nicotine dependence; Z96.641 Presence of right artificial hip joint; Z97.4 Presence of external hearing-aid; Z96.652 Presence of left artificial knee joint; Z71.3 Dietary counseling and surveillance; Z20.822 Contact with and (suspected) exposure to COVID-19
CPT/HCPCS: 36415; 71046; 71275; 80048; 80053; 80202; 83605; 83880; 84295; 84484; 85025; 85027; 85610; 85730; 87040; 87070; 87075; 87077; 87186; 87205; 87502; 87635; 88305; 93005; 93306; 96374; 96375; 99285

== ENCOUNTER 2023-03-03 11:48 | Observation (INO) | payer MEDICARE ==
[2023-03-03] MEDS ORDERED: METOPROLOL TARTRATE 12.5 MG TAB PO STA (12:21)
[2023-03-03] MEDS ORDERED: SODIUM CHLORIDE 0.9% 500 ML 500 ML IV STA (12:21)
--- NOTE | 2023-03-03 12:28 | ED ---
General Adult HPI - General Chief complaint: Shortness of Breath Stated complaint: SOB Time Seen by Provider: 03/03/23 12:00 Source: patient, RN notes reviewed, old records reviewed Mode of arrival: ambulatory Limitations: no limitations - History of Present Illness Initial comments: This is an 87-year-old female presents emergency Department complaining that she lightheaded at home this morning and her pulse is 127 at home and so she figured her atrial fibrillation was acting up again. Patient states she took her metoprolol late today she only took the 10:00 and she was having symptoms at that time. Patient denies any chest pain or palpitations. Patient states she did feel somewhat short of breath at the time. Patient states she is feeling better at this time. Patient denies any recent fever chills or cough per patient denies any patient's numbness weakness. Patient has abdominal pain patient denies nausea vomiting diarrhea. - Related Data Home Medications Medication Instructions Recorded Confirmed Atorvastatin [Lipitor] 10 mg PO HS 07/10/18 03/03/23 Citalopram Hydrobromide [CeleXA] 20 mg PO DAILY 07/10/18 03/03/23 Loratadine [Claritin] 10 mg PO DAILY 07/10/18 03/03/23 Multivitamins, Thera [Multivitamin 1 tab PO DAILY 07/10/18 03/03/23 (formulary)] Vit C/E/Zn/Coppr/Lutein/Zeaxan 1 cap PO BID 07/10/18 03/03/23 [Preservision Areds 2 Softgel] Losartan Potassium 100 mg PO HS 06/19/22 03/03/23 Calcium Carbonate [Calcium] 600 mg PO BID 03/03/23 03/03/23 Famotidine [Pepcid] 20 mg PO HS 03/03/23 03/03/23 Furosemide [Lasix] 20 mg PO DAILY 03/03/23 03/03/23 Pancreatic Enzymes 1,000 mg PO TID 03/03/23 03/03/23 Previous Rx's Medication Instructions Recorded Ferrous Sulfate [Feosol] 325 mg PO DAILY #30 tab 07/18/18 Apixaban [Eliquis] 5 mg PO BID #60 tab 03/31/19 Metoprolol Tartrate [Lopressor] 12.5 mg PO BID #60 06/21/22 amLODIPine [Norvasc] 10 mg PO DAILY #30 tab 06/21/22 Allergies Allergy/AdvReac Type Severity Reaction Status Date / Time gluten Allergy Celiac Verified 03/03/23 13:21 Disease Review of Systems ROS Statement: Those systems with pertinent positive or pertinent negative responses have been documented in the HPI. ROS Other: All systems not noted in ROS Statement are negative. 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 History of Any Multi-Drug Resistant Organisms: None Reported Past Surgical History: Joint Replacement, Orthopedic Surgery Additional Past Surgical History / Comment(s): left knee replacements, left femur fx repair with hardware, BILATERAL CATARACTS, BILATERAL EYELID SURGERY, COLONOSCOPY, right hip replacement, hammer toe fixed on left foot. Past Anesthesia/Blood Transfusion Reactions: Previous Problems w/ Anesthesia, Motion Sickness Additional Past Anesthesia/Blood Transfusion Reaction / Comment(s): Hard time waking from anesthesia. Past Psychological History: No Psychological Hx Reported Smoking Status: Former smoker Past Alcohol Use History: Occasional Past Drug Use History: None Reported - Past Family History Mother History Unknown: Yes Additional Family Medical History / Comment(s): myasthenia gravis Sister(s) History Unknown: Yes Additional Family Medical History / Comment(s): phlebitis Brother(s) Family Medical History: Cancer Daughter(s) Family Medical History: Osteoarthritis (OA) Son(s) Family Medical History: Unable to Obtain General Exam - General Exam Comments Initial Comments: GENERAL: Patient is well-developed and well-nourished. Patient is nontoxic and well- hydrated and is in mild distress. ENT: Neck is soft and supple. No significant lymphadenopathy is noted. Oropharynx is clear. Moist mucous membranes. Neck has full range of motion without elici ting any pain. EYES: The sclera were anicteric and conjunctiva were pink and moist. Extraocular m ovements were intact and pupils were equal round and reactive to light. Eyelids were unremarkable. PULMONARY: Unlabored respirations. Good breath sounds bilaterally. No audible rales rhonchi or wheezing was noted. CARDIOVASCULAR: Patient has an irregularly irregular heartbeat at about 110 beats a minute ABDOMEN: Soft and nontender with normal bowel sounds. SKIN: Skin is clear with no lesions or rashes and otherwise unremarkable. NEUROLOGIC: Patient is alert and oriented x3. Cranial nerves II through XII are grossly intact. Motor and sensory are also intact. Normal speech, volume and content. Symmetrical smile. MUSCULOSKELETAL: Normal extremities with adequate strength and full range of motion. LYMPHATICS: No significant lymphadenopathy is noted PSYCHIATRIC: Normal psychiatric evaluation. Limitations: no limitations Course Vital Signs 03/03/23 03/03/23 03/03/23 11:53 12:38 13:38 Temperature 98 F Pulse Rate 116 H 114 H 116 H Respiratory 24 18 18 Rate Blood Pressure 113/76 135/77 112/73 O2 Sat by Pulse 100 99 98 Oximetry Medical Decision Making - Medical Decision Making EKG as interpreted by myself shows atrial fibrillation at 92 bpm QRS 105 Q-T intervals 53 QTC is 402. Patient's EKG shows no ST segment elevation or depression. Was pt. sent in by a medical professional or institution (, PA, PARALEGAL LEGAL SECRETARY, urgent care, hospital, or shelter...) When possible be specific @ -[No] Did you speak to anyone other than the patient for history (EMS, parent, family, police, friend...)? What history was obtained from this source @ -[No] Did you review nursing and triage notes (agree or disagree)? Why? @ -[I reviewed and agree with nursing and triage notes] Were old charts reviewed (outside hosp., previous admission, EMS record, old EKG, old radiological studies, urgent care reports/EKG's, shelter records)? Report findings @ -[No old charts were reviewed] Differential Diagnosis (chest pain, altered mental status, abdominal pain women, abdominal pain men, vaginal bleeding, weakness, fever, dyspnea, syncope, headache, dizziness, GI bleed, back pain, seizure, CVA, palpatations, mental health, musculoskeletal)? @ -Differential Dizziness: Benign paroxysmal positional Vertigo, Menieres disease, otitis media, acoustic neuroma, vertebrobasilar insufficiency, cerebellar stroke, encephalitis, hypovolemic, arrhythmia, coronary artery syndrome, anemia, this is not meant to be an all-inclusive list EKG interpreted by me (3pts min.). @ -[As above] X-rays interpreted by me (1pt min.). @ -Chest x-ray shows no acute abnormality CT interpreted by me (1pt min.). @ -[None done] U/S interpreted by me (1pt. min.). @ -[None done] What testing was considered but not performed or refused? (CT, X-rays, U/S, labs)? Why? @ -[None] What meds were considered but not given or refused? Why? @ -[None] Did you discuss the management of the patient with other professionals (arnulfo morales i.e. , PA, PARALEGAL LEGAL SECRETARY, lab, RT, psych nurse, social worker school, knife setter grinder machine, teacher, aircraft electronics technical officer, rehabilitation caseworker)? Give summary @ -I spoke with [facility] hospice agreed to admit the patient and the patient wrote admitting orders. Was smoking cessation discussed for >3mins.? @ -[No] Was critical care preformed (if so, how long)? @ -5 minutes Were there social determinants of health that impacted care today? How? (Homelessness, low income, unemployed, alcoholism, drug addiction, t ransportation, low edu. Level, literacy, decrease access to med. care, senior care, rehab)? @ -[No] Was there de-escalation of care discussed even if they declined (Discuss DNR or withdrawal of care, Hospice)? DNR status @ -[No] What co-morbidities impacted this encounter? (DM, HTN, Smoking, COPD, CAD, Cancer, CVA, ARF, Chemo, Hep., AIDS, mental health diagnosis, sleep apnea, morbid obesity)? @ -[None] Was patient admitted / discharged? Hospital course, mention meds given and route, prescriptions, significant lab abnormalities, going to OR and other pertinent info. @ -Patient's heart rate was between 10[birth year]29 upon arrival. Patient took her medications late today and so I gave her another dose of her metoprolol however that was unsuccessful bring her heart rate down at all and she still was feeling lightheaded so started on a Cardizem drip and spoke with [facility] hospitalist and admitted the patient. Undiagnosed new problem with uncertain prognosis? @ -[No] Drug Therapy requiring intensive monitoring for toxicity (Heparin, Nitro, Insulin, Cardizem)? @ -[No] Were any procedures done? @ -[No] Diagnosis/symptom? @ -A. fib with rapid ventricular response Acute, or Chronic, or Acute on Chronic? @ -Acute Uncomplicated (without systemic symptoms) or Complicated (systemic symptoms)? @ -Complicated Side effects of treatment? @ -[No] Exacerbation, Progression, or Severe Exacerbation? @ -[No] Poses a threat to life or bodily function? How? (Chest pain, USA, MD, pneumonia, PE, COPD, DKA, ARF, appy, cholecystitis, CVA, Diverticulitis, Homicidal, Suicidal, threat to staff... and all critical care pts) @ -Yes this could lead to end organ dysfunction secondary to poor perfusion - Lab Data Result diagrams: 03/03/23 12:21 03/03/23 12:21 Lab Results 03/03/23 03/03/23 03/03/23 Range/Units 12:21 12:21 12:21 WBC 5.6 (3.8-10.6) k/uL RBC 4.31 (3.80-5.40) m/uL Hgb 13.8 (11.4-16.0) gm/dL Hct 40.8 (34.0-46.0) % MCV 94.8 (80.0-100.0) fL MCH 32.0 (25.0-35.0) pg MCHC 33.8 (31.0-37.0) g/dL RDW 13.5 (11.5-15.5) % Plt Count 260 (150-450) k/uL MPV 8.2 Neutrophils % 63 % Lymphocytes % 24 % Monocytes % 7 % Eosinophils % 3 % Basophils % 0 % Neutrophils # 3.5 (1.3-7.7) k/uL Lymphocytes # 1.3 (1.0-4.8) k/uL Monocytes # 0.4 (0-1.0) k/uL Eosinophils # 0.2 (0-0.7) k/uL Basophils # 0.0 (0-0.2) k/uL PT 10.4 (9.0-12.0) sec INR 1.0 (<1.2) APTT 25.1 (22.0-30.0) sec Sodium 134 L (137-145) mmol/L Potassium 4.6 (3.5-5.1) mmol/L Chloride 96 L (98-107) mmol/L Carbon Dioxide 29 (22-30) mmol/L Anion Gap 9 mmol/L BUN 24 H (7-17) mg/dL Creatinine 0.82 (0.52-1.04) mg/dL Est GFR (CKD-EPI)AfAm 76 (>60 ml/min/1.73 sqM) Est GFR (CKD-EPI)NonAf 66 (>60 ml/min/1.73 sqM) Glucose 89 (74-99) mg/dL Calcium 9.1 (8.4-10.2) mg/dL Magnesium 2.1 (1.6-2.3) mg/dL Total Bilirubin 0.7 (0.2-1.3) mg/dL AST 44 H (14-36) U/L ALT 32 (4-34) U/L Alkaline Phosphatase 79 (38-126) U/L Troponin I (0.000-0.034) ng/mL Total Protein 7.4 (6.3-8.2) g/dL Albumin 4.1 (3.5-5.0) g/dL 03/03/23 Range/Units 12:21 WBC (3.8-10.6) k/uL RBC (3.80-5.40) m/uL Hgb (11.4-16.0) gm/dL Hct (34.0-46.0) % MCV (80.0-100.0) fL MCH (25.0-35.0) pg MCHC (31.0-37.0) g/dL RDW (11.5-15.5) % Plt Count (150-450) k/uL MPV Neutrophils % % Lymphocytes % % Monocytes % % Eosinophils % % Basophils % % Neutrophils # (1.3-7.7) k/uL Lymphocytes # (1.0-4.8) k/uL Monocytes # (0-1.0) k/uL Eosinophils # (0-0.7) k/uL Basophils # (0-0.2) k/uL PT (9.0-12.0) sec INR (<1.2) APTT (22.0-30.0) sec Sodium (137-145) mmol/L Potassium (3.5-5.1) mmol/L Chloride (98-107) mmol/L Carbon Dioxide (22-30) mmol/L Anion Gap mmol/L BUN (7-17) mg/dL Creatinine (0.52-1.04) mg/dL Est GFR (CKD-EPI)AfAm (>60 ml/min/1.73 sqM) Est GFR (CKD-EPI)NonAf (>60 ml/min/1.73 sqM) Glucose (74-99) mg/dL Calcium (8.4-10.2) mg/dL Magnesium (1.6-2.3) mg/dL Total Bilirubin (0.2-1.3) mg/dL AST (14-36) U/L ALT (4-34) U/L Alkaline Phosphatase (38-126) U/L Troponin I <0.012 (0.000-0.034) ng/mL Total Protein (6.3-8.2) g/dL Albumin (3.5-5.0) g/dL Critical Care Time Critical Care Time: Yes Total Critical Care Time: 35 Disposition Clinical Impression: Atrial fibrillation with rapid ventricular response Disposition: ADMITTED IP TO THIS HOSP Referrals: Grupo Tinoco MD [Primary Care Provider] - 1-2 days Time of Disposition: 14:34
[2023-03-03 12:51] LABS: Basophils % (A) 0 %; Eosinophils # (A) 0.2 k/uL (0-0.7); Eosinophils % (A) 3 %; HCT 40.8 % (34.0-46.0); HGB 13.8 gm/dL (11.4-16.0); Lymphocytes # (A) 1.3 k/uL (1.0-4.8); Lymphocytes % (A) 24 %; MCHC 33.8 g/dL (31.0-37.0); MCV 94.8 fL (80.0-100.0); Mean Platelet Volume 8.2; Monocytes # (A) 0.4 k/uL (0-1.0); Monocytes % (A) 7 %; Neutrophils # (A) 3.5 k/uL (1.3-7.7); Neutrophils % (A) 63 %; Platelet Count 260 k/uL (150-450); RBC 4.31 m/uL (3.80-5.40); RDW 13.5 % (11.5-15.5); WBC 5.6 k/uL (3.8-10.6)
[2023-03-03 12:53] LABS: Partial Thromboplastin Time 25.1 sec (22.0-30.0); Prothrombin Time 10.4 sec (9.0-12.0)
--- NOTE | 2023-03-03 13:02 | XR ---
EXAMINATION TYPE: XR chest 2V DATE OF EXAM: 03/03/2023 COMPARISON: 08/18/2022 HISTORY: Dysrhythmia TECHNIQUE: Frontal and lateral views of the chest are obtained. FINDINGS: The lungs are clear of consolidative opacity. There is mild interstitial prominence which could refle ct mild chronic interstitial changes versus mild vascular congestion. Heart size is mildly prominent. There is no pleural effusion or pneumothorax. The pleural fusions seen on the prior study has resolve d in the interval. There are multiple healed left rib fractures otherwise the osseous structures are intact. IMPRESSION: 1. Mild cardiomegaly with mildly prominent interstitial markings reflecting mild vascular congestion versus chronic interstitial change. Clinical correlation recommended. 2. No airspace consolidation, pneumothorax or pleural effusion. IMPRESSION: No acute cardiopulmonary process.
[2023-03-03 13:13] LABS: ALT 32 U/L (4-34); AST 44 U/L (14-36); African American GFR (CKD) 76 (>60 ml/min/1.73 sqM); Albumin 4.1 g/dL (3.5-5.0); Alkaline Phosphatase 79 U/L (38-126); Anion Gap 9 mmol/L; Blood Urea Nitrogen 24 mg/dL (7-17); Calcium 9.1 mg/dL (8.4-10.2); Carbon Dioxide 29 mmol/L (22-30); Chloride 96 mmol/L (98-107); Glucose 89 mg/dL (74-99); Magnesium 2.1 mg/dL (1.6-2.3); Non-African American GFR(CKD) 66 (>60 ml/min/1.73 sqM); Potassium 4.6 mmol/L (3.5-5.1); Sodium 134 mmol/L (137-145); Total Bilirubin 0.7 mg/dL (0.2-1.3); Total Protein 7.4 g/dL (6.3-8.2)
[2023-03-03] MEDS: DILTIAZEM 125 MG in SODIUM CHLORIDE 0.9% 100 ML IV SCH (14:22)
[2023-03-03] MEDS ORDERED: NITROGLYCERIN SL TABS 0.4 MG TAB SUBLINGUAL PRN (14:34)
--- NOTE | 2023-03-03 16:29 | P.HPIM ---
History of Present Illness H&P Date: 03/03/23 Chief Complaint: Shortness of breath 87-year-old female presents emergency Department complaining that she lightheaded at home this morning and her pulse is 127 at home and so she figured her atrial fibrillation was acting up again. Patient states she took her metoprolol late today she only took the 10:00 and she was having symptoms at that time. Patient denies any chest pain or palpitations. Patient states she did feel somewhat short of breath at the time. Patient states she is feeling better at this time. Patient denies any recent fever chills or cough per patie nt denies any patient's numbness weakness. Patient has abdominal pain patient denies nausea vomiting diarrhea. Workup in the ED revealed a WBC of 5.6, hemoglobin of 13.8 and platelet count of 260, sodium 134, potassium 4.6, BUN/creatinine 24/0.8, EKG reveals atrial fibrillation with RVR with heart rate between 120 to 130 Patient is placed on IV Cardizem infusion and is admitted for further cardiac evaluation Review of Systems REVIEW OF SYSTEMS: CONSTITUTIONAL: No fever, no malaise, no fatigue. HEENT: No recent visual problems or hearing problems. Denied any sore throat. CARDIOVASCULAR: No chest pain, orthopnea, PND, no palpitations, no syncope. PULMONARY: No shortness of breath, no cough, no hemoptysis. GASTROINTESTINAL: No diarrhea, no nausea, no vomiting, no abdominal pain. NEUROLOGICAL: No headaches, no weakness, no numbness. HEMATOLOGICAL: Denies any bleeding or petechiae. GENITOURINARY: Denies any burning micturition, frequency, or urgency. MUSCULOSKELETAL/RHEUMATOLOGICAL: Denies any joint pain, swelling, or any muscle pain. ENDOCRINE: Denies any polyuria or polydipsia. The rest of the 14-point review of systems is negative. 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 History of Any Multi-Drug Resistant Organisms: None Reported Past Surgical History: Joint Replacement, Orthopedic Surgery Additional Past Surgical History / Comment(s): left knee replacements, left femur fx repair with hardware, BILATERAL CATARACTS, BILATERAL EYELID SURGERY, COLONOSCOPY, right hip replacement, hammer toe fixed on left foot. Past Anesthesia/Blood Transfusion Reactions: Previous Problems w/ Anesthesia, Motion Sickness Additional Past Anesthesia/Blood Transfusion Reaction / Comment(s): Hard time waking from anesthesia. Past Psychological History: No Psychological Hx Reported Smoking Status: Former smoker Past Alcohol Use History: Occasional Past Drug Use History: None Reported - Past Family History Mother History Unknown: Yes Additional Family Medical History / Comment(s): myasthenia gravis Sister(s) History Unknown: Yes Additional Family Medical History / Comment(s): phlebitis Brother(s) Family Medical History: Cancer Daughter(s) Family Medical History: Osteoarthritis (OA) Son(s) Family Medical History: Unable to Obtain Medications and Allergies Home Medications Medication Instructions Recorded Confirmed Type Atorvastatin [Lipitor] 10 mg PO HS 07/10/18 03/03/23 History Citalopram Hydrobromide [CeleXA] 20 mg PO DAILY 07/10/18 03/03/23 History Loratadine [Claritin] 10 mg PO DAILY 07/10/18 03/03/23 History Multivitamins, Thera [Multivitamin 1 tab PO DAILY 07/10/18 03/03/23 History (formulary)] Vit C/E/Zn/Coppr/Lutein/Zeaxan 1 cap PO BID 07/10/18 03/03/23 History [Preservision Areds 2 Softgel] Ferrous Sulfate [Feosol] 325 mg PO DAILY #30 tab 07/18/18 03/03/23 Rx Apixaban [Eliquis] 5 mg PO BID #60 tab 03/31/19 03/03/23 Rx Losartan Potassium 100 mg PO HS 06/19/22 03/03/23 History Metoprolol Tartrate [Lopressor] 12.5 mg PO BID #60 06/21/22 03/03/23 Rx amLODIPine [Norvasc] 10 mg PO DAILY #30 tab 06/21/22 03/03/23 Rx Calcium Carbonate [Calcium] 600 mg PO BID 03/03/23 03/03/23 History Famotidine [Pepcid] 20 mg PO HS 03/03/23 03/03/23 History Furosemide [Lasix] 20 mg PO DAILY 03/03/23 03/03/23 History Pancreatic Enzymes 1,000 mg PO TID 03/03/23 03/03/23 History Allergies Allergy/AdvReac Type Severity Reaction Status Date / Time gluten Allergy Celiac Verified 03/03/23 13:21 Disease Physical Exam Vitals: Vital Signs Temp Pulse Resp BP Pulse Ox 03/03/23 13:38 116 H 18 112/73 98 03/03/23 12:38 114 H 18 135/77 99 03/03/23 11:53 98 F 116 H 24 113/76 100 Intake and Output 03/02/23 03/03/23 03/03/23 22:59 06:59 14:59 Other: Weight 65.317 kg PHYSICAL EXAMINATION: GENERAL: The patient is alert and oriented x3, not in any acute distress. Well developed, well nourished. HEENT: Pupils are round and equally reacting to light. EOMI. No scleral icterus. No conjunctival pallor. Normocephalic, atraumatic. No pharyngeal erythema. No thyromegaly. CARDIOVASCULAR: S1 and S2 present. No murmurs, rubs, or gallops. PULMONARY: Chest is clear to auscultation, no wheezing or crackles. ABDOMEN: Soft, nontender, nondistended, normoactive bowel sounds. No palpable organomegaly. MUSCULOSKELETAL: No joint swelling or deformity. EXTREMITIES: No cyanosis, clubbing, or pedal edema. NEUROLOGICAL: Gross neurological examination did not reveal any focal deficits. SKIN: No rashes. Results CBC & Chem 7: 03/03/23 12:21 03/03/23 12:21 Labs: Abnormal Lab Results - Last 24 Hours (Table) 03/03/23 Range/Units 12:21 Sodium 134 L (137-145) mmol/L Chloride 96 L (98-107) mmol/L BUN 24 H (7-17) mg/dL AST 44 H (14-36) U/L Assessment and Plan Assessment: 1. Atrial fibrillation with RVR; continue with IV Cardizem infusion and titrate to keep heart rate less than 110; we will continue with anticoagulation therapy; continue home dose of metoprolol 12.5 mg twice a day 2. Mild renal injury; slow IV fluid hydration with normal saline at a rate of 75 mL an hour 3. Mild transaminitis; likely related to statin therapy; we will monitor liver enzymes closely 4. Hypertension; patient is currently on IV Cardizem infusion; losartan 100 mg by mouth daily at bedtime; Norvasc 10 mg daily 5. Hyperlipidemia; Lipitor 10 mg by mouth daily at bedtime; we will monitor liver enzymes closely and hold off on Lipitor if transaminases continue to trend up 6. Depression; patient remains on Celexa 20 mg daily DVT prophylaxis; SCDs CODE STATUS;
[2023-03-03] MEDS: APIXABAN 5 MG TAB PO SCH (20:04)
[2023-03-03] MEDS: VIT A,C & E-LUTEIN-MINERALS 1 EACH TAB PO SCH (20:04)
[2023-03-03] MEDS: CALCIUM CARBONATE 500 MG CHEWABLE PO SCH (20:04)
[2023-03-03] MEDS: METOPROLOL TARTRATE 12.5 MG TAB PO SCH (20:04)
[2023-03-03] MEDS ORDERED: LOSARTAN 50 MG TAB PO SCH (21:00)
[2023-03-03] MEDS ORDERED: FAMOTIDINE 20 MG TAB PO SCH (21:00)
[2023-03-03] MEDS ORDERED: ATORVASTATIN 10 MG TAB PO SCH (21:00)
[2023-03-03] MEDS ORDERED: PANCREATIC ENZYMES PO SCH (22:00)
[2023-03-04] MEDS: APIXABAN 5 MG TAB PO SCH (08:41)
[2023-03-04] MEDS: METOPROLOL TARTRATE 12.5 MG TAB PO SCH (08:41)
[2023-03-04] MEDS: CALCIUM CARBONATE 500 MG CHEWABLE PO SCH (08:41)
[2023-03-04] MEDS: VIT A,C & E-LUTEIN-MINERALS 1 EACH TAB PO SCH (08:41)
[2023-03-04] MEDS ORDERED: ASPIRIN 325 MG TAB PO SCH (09:00)
[2023-03-04] MEDS ORDERED: MULTIVITAMINS, THERA 1 EACH TAB PO SCH (09:00)
[2023-03-04] MEDS ORDERED: CITALOPRAM HYDROBROMIDE 20 MG TAB PO SCH (09:00)
[2023-03-04] MEDS ORDERED: LORATADINE 10 MG TAB PO SCH (09:00)
[2023-03-04] MEDS ORDERED: FUROSEMIDE 20 MG TAB PO SCH (09:00)
[2023-03-04] MEDS ORDERED: FERROUS SULFATE 325 MG TAB PO SCH (09:00)
[2023-03-04 09:40] LABS: Basophils % (A) 0 %; Eosinophils # (A) 0.2 k/uL (0-0.7); Eosinophils % (A) 3 %; HGB 12.1 gm/dL (11.4-16.0); Lymphocytes % (A) 21 %; MCHC 32.6 g/dL (31.0-37.0); MCV 98.3 fL (80.0-100.0); Mean Platelet Volume 7.8; Monocytes # (A) 0.3 k/uL (0-1.0); Monocytes % (A) 6 %; Neutrophils # (A) 3.2 k/uL (1.3-7.7); Neutrophils % (A) 66 %; Platelet Count 214 k/uL (150-450); RBC 3.77 m/uL (3.80-5.40); RDW 13.5 % (11.5-15.5); WBC 4.9 k/uL (3.8-10.6)
[2023-03-04 09:44] VITALS: RESP 18
[2023-03-04 09:55] LABS: African American GFR (CKD) 64 (>60 ml/min/1.73 sqM); Anion Gap 7 mmol/L; Blood Urea Nitrogen 17 mg/dL (7-17); Calcium 8.7 mg/dL (8.4-10.2); Carbon Dioxide 29 mmol/L (22-30); Chloride 97 mmol/L (98-107); Glucose 139 mg/dL (74-99); Non-African American GFR(CKD) 56 (>60 ml/min/1.73 sqM); Potassium 4.2 mmol/L (3.5-5.1); Sodium 133 mmol/L (137-145)
[2023-03-04] MEDS: DILTIAZEM 125 MG in SODIUM CHLORIDE 0.9% 100 ML IV SCH (13:12)
[2023-03-04 16:06] VITALS: BP 138/62; PULSE 60; TEMP 97.9
--- NOTE | 2023-03-04 16:51 | P.CRDCN ---
History of Present Illness Consult date: 03/04/23 Consult reason: atrial fibrillation History of present illness: History of present illness: Patient is a pleasant 87-year-old female with significant past medical history of paroxysmal atrial fibrillation, hypertension, hyperlipidemia presented to the emergency department with complaints of shortness of breath and dizziness. She follows with Dr. Peng in the office. She states that yesterday she woke up in the morning and felt., She then ate her breakfast and lightheadedness worse. At that time she checked her blood pressure in her heart rate was noted to be 127. She was having shortness of breath and some chest pressure so she came to the emergency department. EKG did show atrial fibrillation, 92 bpm. She was started on IV Cardizem drip. Chest x-ray is negative for any acute findings. Labs reviewed: Troponin negative 3, creatinine 0.94, sodium 133, potassium 4.2. She did have a previous echo in 07/2022 with ejection fraction 5560 percent, RVSP 39, mild aortic regurgitation and mild tricuspid regurgitation. She did convert to normal sinus rhythm overnight and Cardizem drip was stopped. She reports she is feeling better this morning at her baseline. She denies any chest pain or pressure. Denies any shortness of breath, palpitations, dizziness, syncope. REVIEW OF SYSTEMS: No fever or chills. No cough or expectoration. No diaphoresis. Patient denies headache, dizziness, blurred vision, double vision. Patient denies any stomach discomfort. No nausea, vomiting. No hematochezia. No hematemesis. Denies any black stools or blood in his stools. Denies dysuria or hematuria. No muscle weakness or numbness. No chest pain or pressure. PHYSICAL EXAMINATION: This is a 87-year-old femle in no apparent distress at the time of my examination. HEENT: Head is atraumatic, normocephalic. Pupils are equal, round. Sclerae anicteric. Conjunctivae are clear. Mucous membranes of the mouth are moist. Neck is supple. There is no jugular venous distention. No carotid bruit is heard. CHEST EXAMINATION: Lungs are clear to auscultation. No chest wall tenderness is noted on palpation or with deep breathing. HEART EXAMINATION: Heart regular rate and rhythm. S1, S2 heard. No murmurs, gallops or rub. ABDOMEN: Soft, nontender. Bowel sounds are heard. EXTREMITIES: 2+ peripheral pulses with no evidence of peripheral edema and no calf tenderness noted. NEUROLOGIC EXAMINATION: Patient is awake, alert and oriented x3. IMPRESSION AND PLAN: Paroxysmal A. fib, currently in sinus rhythm Hypertension Hyperlipidemia PLAN: Patient is feeling at her baseline and has converted back into normal sinus rhythm. She has had infrequent episodes of atrial fibrillation, therefore, we'll continue current medications for now. Continue Eliquis for stroke prevention. Check TSH. Okay for discharge to home from cardiology standpoint. Follow-up with Dr. Peng in the office in 1 week. I am dictating on behalf of Dr. Lucho Vallejo's history/physical and assessment/plan. 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 History of Any Multi-Drug Resistant Organisms: None Reported Past Surgical History: Joint Replacement, Orthopedic Surgery Additional Past Surgical History / Comment(s): left knee replacements, left femur fx repair with hardware, BILATERAL CATARACTS, BILATERAL EYELID SURGERY, COLONOSCOPY, right hip replacement, hammer toe fixed on left foot. Past Anesthesia/Blood Transfusion Reactions: Previous Problems w/ Anesthesia, Motion Sickness Additional Past Anesthesia/Blood Transfusion Reaction / Comment(s): Hard time waking from anesthesia. Past Psychological History: No Psychological Hx Reported Smoking Status: Former smoker Past Alcohol Use History: Occasional Past Drug Use History: None Reported - Past Family History Mother History Unknown: Yes Additional Family Medical History / Comment(s): myasthenia gravis Sister(s) History Unknown: Yes Additional Family Medical History / Comment(s): phlebitis Brother(s) Family Medical History: Cancer Daughter(s) Family Medical History: Osteoarthritis (OA) Son(s) Family Medical History: Unable to Obtain Medications and Allergies Home Medications Medication Instructions Recorded Confirmed Type Atorvastatin [Lipitor] 10 mg PO HS 07/10/18 03/03/23 History Citalopram Hydrobromide [CeleXA] 20 mg PO DAILY 07/10/18 03/03/23 History Loratadine [Claritin] 10 mg PO DAILY 07/10/18 03/03/23 History Multivitamins, Thera [Multivitamin 1 tab PO DAILY 07/10/18 03/03/23 History (formulary)] Vit C/E/Zn/Coppr/Lutein/Zeaxan 1 cap PO BID 07/10/18 03/03/23 History [Preservision Areds 2 Softgel] Ferrous Sulfate [Feosol] 325 mg PO DAILY #30 tab 07/18/18 03/03/23 Rx Apixaban [Eliquis] 5 mg PO BID #60 tab 03/31/19 03/03/23 Rx Losartan Potassium 100 mg PO HS 06/19/22 03/03/23 History Metoprolol Tartrate [Lopressor] 12.5 mg PO BID #60 06/21/22 03/03/23 Rx amLODIPine [Norvasc] 10 mg PO DAILY #30 tab 06/21/22 03/03/23 Rx Calcium Carbonate [Calcium] 600 mg PO BID 03/03/23 03/03/23 History Famotidine [Pepcid] 20 mg PO HS 03/03/23 03/03/23 History Furosemide [Lasix] 20 mg PO DAILY 03/03/23 03/03/23 History Pancreatic Enzymes 1,000 mg PO TID 03/03/23 03/03/23 History Allergies Allergy/AdvReac Type Severity Reaction Status Date / Time gluten Allergy Celiac Verified 03/03/23 13:21 Disease Physical Exam Vitals: Vital Signs Temp Pulse Pulse Resp BP BP Pulse Ox 03/04/23 09:02 96 03/04/23 08:30 97.9 F 65 18 129/63 96 03/04/23 04:00 97.9 F 66 19 107/56 96 03/04/23 00:00 97.9 F 81 18 121/77 97 03/03/23 20:00 98.2 F 93 19 110/52 96 03/03/23 16:25 97.6 F 111 H 18 136/80 95 03/03/23 16:08 93 18 117/64 99 03/03/23 14:24 118 H 18 127/79 99 03/03/23 13:38 116 H 18 112/73 98 03/03/23 12:38 114 H 18 135/77 99 03/03/23 11:53 98 F 116 H 24 113/76 100 FiO2 03/04/23 09:02 21 03/04/23 08:30 03/04/23 04:00 03/04/23 00:00 03/03/23 20:00 03/03/23 16:25 03/03/23 16:08 03/03/23 14:24 03/03/23 13:38 03/03/23 12:38 03/03/23 11:53 Intake and Output 03/03/23 03/04/23 03/04/23 22:59 06:59 14:59 Intake Total 240 180 Output Total 600 Balance 240 -600 180 Intake: Oral 240 180 Output: Urine 600 Other: Voiding Method Toilet Toilet # Voids 1 Weight 65.317 kg 64.8 kg Results 03/04/23 08:52 03/04/23 08:52 Cardiac Enzymes 03/03/23 03/03/23 03/03/23 Range/Units 12:21 12:21 15:13 AST 44 H (14-36) U/L Troponin I <0.012 <0.012 (0.000-0.034) ng/mL 03/03/23 Range/Units 18:00 AST (14-36) U/L Troponin I <0.012 (0.000-0.034) ng/mL Coagulation 03/03/23 Range/Units 12:21 PT 10.4 (9.0-12.0) sec APTT 25.1 (22.0-30.0) sec CBC 03/03/23 03/04/23 Range/Units 12:21 08:52 WBC 5.6 4.9 (3.8-10.6) k/uL RBC 4.31 3.77 L (3.80-5.40) m/uL Hgb 13.8 12.1 (11.4-16.0) gm/dL Hct 40.8 37.0 (34.0-46.0) % Plt Count 260 214 (150-450) k/uL Comprehensive Metabolic Panel 03/03/23 03/04/23 Range/Units 12:21 08:52 Sodium 134 L 133 L (137-145) mmol/L Potassium 4.6 4.2 (3.5-5.1) mmol/L Chloride 96 L 97 L (98-107) mmol/L Carbon Dioxide 29 29 (22-30) mmol/L BUN 24 H 17 (7-17) mg/dL Creatinine 0.82 0.94 (0.52-1.04) mg/dL Glucose 89 139 H (74-99) mg/dL Calcium 9.1 8.7 (8.4-10.2) mg/dL AST 44 H (14-36) U/L ALT 32 (4-34) U/L Alkaline Phosphatase 79 (38-126) U/L Total Protein 7.4 (6.3-8.2) g/dL Albumin 4.1 (3.5-5.0) g/dL Current Medications Generic Name Dose Route Start Last Admin Trade Name Freq PRN Reason Stop Dose Admin Apixaban 5 mg 03/03/23 21:00 03/04/23 08:41 Apixaban 5 Mg Tab PO 5 mg BID CRISSY Administration Protocol Aspirin 325 mg 03/04/23 09:00 03/04/23 08:41 Aspirin 325 Mg Tab PO 325 mg DAILY CRISSY Administration Atorvastatin Calcium 10 mg 03/03/23 21:00 03/03/23 20:04 Atorvastatin 10 Mg Tab PO 10 mg HS CRISSY Administration Calcium Carbonate/Glycine 500 mg 03/03/23 21:00 03/04/23 08:41 Calcium Carbonate 500 Mg Chewable PO 500 mg BID CRISSY Administration Citalopram Hydrobromide 20 mg 03/04/23 09:00 03/04/23 08:41 Citalopram Hydrobromide 20 Mg Tab PO 20 mg DAILY CRISSY Administration Famotidine 20 mg 03/03/23 21:00 03/03/23 20:04 Famotidine 20 Mg Tab PO 20 mg HS CRISSY Administration Ferrous Sulfate 325 mg 03/04/23 09:00 03/04/23 08:41 Ferrous Sulfate 325 Mg Tab PO 325 mg DAILY CRISSY Administration Furosemide 20 mg 03/04/23 09:00 03/04/23 08:41 Furosemide 20 Mg Tab PO 20 mg DAILY CRISSY Administration Diltiazem HCl 125 mg/ Sodium 125 mls @ 5 mls/hr 03/03/23 14:15 03/03/23 14:22 Chloride IV 5 mg/hr .Q24H CRISSY 5 mls/hr Administration 5 MG/HR Loratadine 10 mg 03/04/23 09:00 03/04/23 08:41 Loratadine 10 Mg Tab PO 10 mg DAILY CRISSY Administration Losartan Potassium 100 mg 03/03/23 21:00 03/03/23 20:04 Losartan 50 Mg Tab PO 100 mg HS CRISSY Administration Metoprolol Tartrate 12.5 mg 03/03/23 21:00 03/04/23 08:41 Metoprolol Tartrate 12.5 Mg Tab PO 12.5 mg BID CRISSY Administration Multivitamins 1 each 03/04/23 09:00 03/04/23 08:41 Multivitamins, Thera 1 Each Tab PO 1 each DAILY CRSISY Administration Multivitamins/Minerals 1 each 03/03/23 21:00 03/04/23 08:41 Vit A,C & J-[id number]-[id number] 1 Each Tab PO 1 each BID CRISSY Administration Nitroglycerin 0.4 mg 03/03/23 14:34 Nitroglycerin Sl Tabs 0.4 Mg Tab SUBLINGUAL Q5M PRN Chest Pain Intake and Output 03/03/23 03/04/23 03/04/23 22:59 06:59 14:59 Intake Total 240 180 Output Total 600 Balance 240 -600 180 Intake: Oral 240 180 Output: Urine 600 Other: Voiding Method Toilet Toilet # Voids 1 Weight 65.317 kg 64.8 kg 03/04/23 08:52 03/04/23 08:52
[2023-03-05 09:09] LABS: Chol/HDL Ratio 2.96 Ratio; LDL Cholesterol,Calculated 101.8 mg/dL (0.0-131.0); VLDL Calculation 17.42 mg/dL (5.00-40.00)
--- NOTE | 2023-03-25 17:59 | P.DS ---
Providers Date of admission: 03/03/23 14:35 Expected date of discharge: 03/04/23 Attending physician: Ranulfo Dc Consults: 03/03/23 14:35 Consult Physician Urgent Consulting Provider: [facility] Consult Reason/Comments: Jeanette ceja with rapid ventricular response Do you want consulting provider notified?: Yes Primary care physician: [facility] Course: 87-year-old female presents emergency Department complaining that she lightheaded at home this morning and her pulse is 127 at home and so she figured her atrial fibrillation was acting up again. Patient states she took her metoprolol late today she only took the 10:00 and she was having symptoms at that time. Patient denies any chest pain or palpitations. Patient states she did feel somewhat short of breath at the time. Patient states she is feeling better at this time. Patient denies any recent fever chills or cough per patient denies any patient's numbness weakness. Patient has abdominal pain patient denies nausea vomiting diarrhea. Workup in the ED revealed a WBC of 5.6, hemoglobin of 13.8 and platelet count of 260, sodium 134, potassium 4.6, BUN/creatinine 24/0.8, EKG reveals atrial fibrillation with RVR with heart rate between 120 to 130 Patient is placed on IV Cardizem infusion and is admitted for further cardiac evaluation Paroxysmal A. brenna, currently in sinus rhythm Hypertension Hyperlipidemia PLAN: Patient is feeling at her baseline and has converted back into normal sinus rhythm. She has had infrequent episodes of atrial fibrillation, therefore, we'll continue current medications for now. Continue Eliquis for stroke prevention. Check TSH. Okay for discharge to home from cardiology standpoint. Follow-up with Dr. Peng in the office in 1 week. Plan - Discharge Summary Discharge Rx Participant: Yes New Discharge Prescriptions: Continue Loratadine [Claritin] 10 mg PO DAILY Multivitamins, Thera [Multivitamin (formulary)] 1 tab PO DAILY Citalopram Hydrobromide [CeleXA] 20 mg PO DAILY Atorvastatin [Lipitor] 10 mg PO HS Vit C/E/Zn/Coppr/Lutein/Zeaxan [Preservision Areds 2 Softgel] 1 cap PO BID Ferrous Sulfate [Feosol] 325 mg PO DAILY #30 tab Apixaban [Eliquis] 5 mg PO BID #60 tab Losartan Potassium 100 mg PO HS Famotidine [Pepcid] 20 mg PO HS Calcium Carbonate [Calcium] 600 mg PO BID Furosemide [Lasix] 20 mg PO DAILY Pancreatic Enzymes 1,000 mg PO TID amLODIPine [Norvasc] 10 mg PO DAILY #30 tab Metoprolol Tartrate [Lopressor] 12.5 mg PO BID #60 Discharge Medication List Atorvastatin [Lipitor] 10 mg PO HS 07/10/18 [History] Citalopram Hydrobromide [CeleXA] 20 mg PO DAILY 07/10/18 [History] Loratadine [Claritin] 10 mg PO DAILY 07/10/18 [History] Multivitamins, Thera [Multivitamin (formulary)] 1 tab PO DAILY 07/10/18 [History] Vit C/E/Zn/Coppr/Lutein/Zeaxan [Preservision Areds 2 Softgel] 1 cap PO BID 07/10/18 [History] Ferrous Sulfate [Feosol] 325 mg PO DAILY #30 tab 07/18/18 [Rx] Apixaban [Eliquis] 5 mg PO BID #60 tab 03/31/19 [Rx] Losartan Potassium 100 mg PO HS 06/19/22 [History] Metoprolol Tartrate [Lopressor] 12.5 mg PO BID #60 06/21/22 [Rx] amLODIPine [Norvasc] 10 mg PO DAILY #30 tab 06/21/22 [Rx] Calcium Carbonate [Calcium] 600 mg PO BID 03/03/23 [History] Famotidine [Pepcid] 20 mg PO HS 03/03/23 [History] Furosemide [Lasix] 20 mg PO DAILY 03/03/23 [History] Pancreatic Enzymes 1,000 mg PO TID 03/03/23 [History] Follow up Appointment(s)/Referral(s): Caitlin Peng MD [STAFF PHYSICIAN] - 1 Week Grupo Tinoco MD [Primary Care Provider] - 1-2 days Patient Instructions/Handouts: A-fib (Atrial Fibrillation) (DC) Discharge Disposition: HOME SELF-CARE
== END 2023-03-04 17:36 | disposition home or self-care (01) ==
LOC: EC 11:48 → 3SCARD 14:35 → INTOOBSV 14:35 → 3SCARD 15:02 → UNDODISIN 03-04 17:36
PROVIDERS: ADMIT Hospitalist; ATTEND Hospitalist
DX: I48.0 Paroxysmal atrial fibrillation (principal); N17.9 Acute kidney failure, unspecified; R74.01 Elevation of levels of liver transaminase levels; H91.90 Unspecified hearing loss, unspecified ear; E78.5 Hyperlipidemia, unspecified; K90.0 Celiac disease; F32.A Depression, unspecified; I11.9 Hypertensive heart disease without heart failure; H35.30 Unspecified macular degeneration; Z79.01 Long term (current) use of anticoagulants; Z79.899 Other long term (current) drug therapy; Z85.828 Personal history of other malignant neoplasm of skin; Z96.652 Presence of left artificial knee joint; Z96.641 Presence of right artificial hip joint; Z98.42 Cataract extraction status, left eye; Z98.41 Cataract extraction status, right eye; Z87.891 Personal history of nicotine dependence; Z80.9 Family history of malignant neoplasm, unspecified; Z82.61 Family history of arthritis
CPT/HCPCS: 99291; 36415; 93005; 80061; 80053; 80048; 84443; 83735; 84484; 85025 ×2; 85610; 85730; 71046; G0378 ×2

== ENCOUNTER 2023-03-22 16:39 | Emergency (ER) | payer MEDICARE ==
[2023-03-22 16:43] VITALS: RESP 16; TEMP 98
[2023-03-22] MEDS ORDERED: ACETAMINOPHEN TAB 500 MG TAB PO STA (18:14)
--- NOTE | 2023-03-22 19:03 | US ---
EXAMINATION TYPE: US venous doppler duplex LE LT DATE OF EXAM: 03/22/2023 6:49 PM COMPARISON: NONE CLINICAL INDICATION: Female, 87 years old with history of swelling; left lower leg swelling x 1 day SIDE PERFORMED: Left TECHNIQUE: The lower extremity deep venous system is examined utilizing real time linear array sonog arianna with graded compression, doppler sonography and color-flow sonography. VESSELS IMAGED: Common Femoral Vein Deep Femoral Vein Greater Saphenous Vein * Femoral Vein Popliteal Vein Small Saphenous Vein * Proximal Calf Veins (* superficial vessels) Left Leg: No evidence for DVT IMPRESSION: Grayscale, color doppler, spectral doppler imaging performed of the deep veins of the lo wer extremities. There is normal flow, compressibility, vascular waveforms.
--- NOTE | 2023-03-22 19:14 | ED ---
Extremity Problem HPI - General Chief complaint: Extremity Problem,Nontraumatic Stated complaint: left leg swollen Time Seen by Provider: 03/22/23 17:49 Source: patient Mode of arrival: wheelchair - History of Present Illness Initial comments: She denies injury. Denies calf pain Patient is an 87-year-old female presents to the emergency department for left lower leg swelling. She noticed it this morning. Denies injury. Denies calf pain. Denies fever, chills, nausea, vomiting. Denies history of DVT and PE. Denies chest pain and shortness of breath. Patient is on Eliquis for atrial fibrillation which she has been taking as directed. - Related Data Home Medications Medication Instructions Recorded Confirmed Atorvastatin [Lipitor] 10 mg PO HS 07/10/18 03/22/23 Citalopram Hydrobromide [CeleXA] 20 mg PO DAILY 07/10/18 03/22/23 Loratadine [Claritin] 10 mg PO DAILY 07/10/18 03/22/23 Multivitamins, Thera [Multivitamin 1 tab PO DAILY 07/10/18 03/22/23 (formulary)] Vit C/E/Zn/Coppr/Lutein/Zeaxan 1 cap PO BID 07/10/18 03/22/23 [Preservision Areds 2 Softgel] Losartan Potassium 100 mg PO HS 06/19/22 03/22/23 Calcium Carbonate [Calcium] 600 mg PO BID 03/03/23 03/22/23 Famotidine [Pepcid] 20 mg PO HS 03/03/23 03/22/23 Furosemide [Lasix] 20 mg PO DAILY 03/03/23 03/22/23 Pancreatic Enzymes 1,000 mg PO TID 03/03/23 03/22/23 Previous Rx's Medication Instructions Recorded Ferrous Sulfate [Feosol] 325 mg PO DAILY #30 tab 07/18/18 Apixaban [Eliquis] 5 mg PO BID #60 tab 03/31/19 Metoprolol Tartrate [Lopressor] 12.5 mg PO BID #60 06/21/22 amLODIPine [Norvasc] 10 mg PO DAILY #30 tab 06/21/22 Allergies Allergy/AdvReac Type Severity Reaction Status Date / Time gluten Allergy Celiac Verified 03/22/23 17:51 Disease Review of Systems ROS Statement: Those systems with pertinent positive or pertinent negative responses have been documented in the HPI. ROS Other: All systems not noted in ROS Statement are negative. 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 History of Any Multi-Drug Resistant Organisms: None Reported Past Surgical History: Joint Replacement, Orthopedic Surgery Additional Past Surgical History / Comment(s): left knee replacements, left femur fx repair with hardware, BILATERAL CATARACTS, BILATERAL EYELID SURGERY, COLONOSCOPY, right hip replacement, hammer toe fixed on left foot. Past Anesthesia/Blood Transfusion Reactions: Previous Problems w/ Anesthesia, Motion Sickness Additional Past Anesthesia/Blood Transfusion Reaction / Comment(s): Hard time waking from anesthesia. Past Psychological History: No Psychological Hx Reported Smoking Status: Former smoker Past Alcohol Use History: Occasional Past Drug Use History: None Reported - Past Family History Mother History Unknown: Yes Additional Family Medical History / Comment(s): myasthenia gravis Sister(s) History Unknown: Yes Additional Family Medical History / Comment(s): phlebitis Brother(s) Family Medical History: Cancer Daughter(s) Family Medical History: Osteoarthritis (OA) Son(s) Family Medical History: Unable to Obtain General Exam General appearance: alert, in no apparent distress Head exam: Present: atraumatic, normocephalic, normal inspection Respiratory exam: Present: normal lung sounds bilaterally. Absent: respiratory distress, wheezes, rales, rhonchi, stridor Cardiovascular Exam: Present: regular rate, normal rhythm, normal heart sounds. Absent: systolic murmur, diastolic murmur, rubs, gallop, clicks Extremities exam: Present: other (Mild nonpitting edema around left ankle and foot without erythema, blanching, warmth. No calf pain. Neurovascularly intact. Full range of motion) Neurological exam: Present: alert, oriented X3, CN II-XII intact Psychiatric exam: Present: normal affect, normal mood Skin exam: Present: warm, dry, intact, normal color. Absent: rash Course Vital Signs 03/22/23 03/22/23 16:40 19:22 Temperature 98.0 F Pulse Rate 74 77 Respiratory 16 16 Rate Blood Pressure 149/66 166/68 O2 Sat by Pulse 97 98 Oximetry Medical Decision Making - Medical Decision Making Was pt. sent in by a medical professional or institution (JOANA Ren, NETWOR[employer] SOFTWARE CONSULTANT, urgent care, hospital, or correction...) When possible be specific @ -No Did you speak to anyone other than the patient for history (EMS, parent, family, police, friend...)? What history was obtained from this source @ -No Did you review nursing and triage notes (agree or disagree)? Why? @ -I reviewed and agree with nursing and triage notes Were old charts reviewed (outside hosp., previous admission, EMS record, old EKG, old radiological studies, urgent care reports/EKG's, correction records)? Report findings @ -No old charts were reviewed Differential Diagnosis (chest pain, altered mental status, abdominal pain women, abdominal pain men, vaginal bleeding, weakness, fever, dyspnea, syncope, headache, dizziness, GI bleed, back pain, seizure, CVA, palpatations, mental health)? @ -DVT, PE, cellulitis, abscess, dependent edema, heart failure. This list is not meant to be all-inclusive EKG interpreted by me (3pts min.). @ -None X-rays interpreted by me (1pt min.). @ -None done CT interpreted by me (1pt min.). @ -None done U/S interpreted by me (1pt. min.). @ -No. Report shows no DVT What testing was considered but not performed or refused? (CT, X-rays, U/S, labs)? Why? @ -None What meds were considered but not given or refused? Why? @ -None Did you discuss the management of the patient with other professionals (professionals i.e. JOANA Ren, [employer] SOFTWARE CONSULTANT, lab, RT, psych nurse, social work associate, armature winder repairer, teacher, promotions officer, complex case manager)? Give summary @ -No Was smoking cessation discussed for >3mins.? @ -No Was critical care preformed (if so, how long)? @ -No Were there social determinants of health that impacted care today? How? (Homelessness, low income, unemployed, alcoholism, drug addiction, transportation, low edu. Level, literacy, decrease access to med. care, custodial, rehab)? @ -No Was there de-escalation of care discussed even if they declined (Discuss DNR or withdrawal of care, Hospice)? DNR status @ -No What co-morbidities impacted this encounter? (DM, HTN, Smoking, COPD, CAD, Cancer, CVA, ARF, Chemo, Hep., AIDS, mental health diagnosis, sleep apnea, morbid obesity)? @ -None Was patient admitted / discharged? Hospital course, mention meds given and route, prescriptions, significant lab abnormalities, going to OR and other pertinent info. @ -Discharged. No evidence of infection or DVT. Patient to elevate and compress the leg at home and follow-up with primary care provider. Undiagnosed new problem with uncertain prognosis? @ -No Drug Therapy requiring intensive monitoring for toxicity (Heparin, Nitro, Insulin, Cardizem)? @ -No Were any procedures done? @ -No Diagnosis/symptom? @ - left lower extremity swelling Acute, or Chronic, or Acute on Chronic? @ -Acute Uncomplicated (without systemic symptoms) or Complicated (systemic symptoms)? @ -uncomplicated Side effects of treatment? @ -No Exacerbation, Progression, or Severe Exacerbation? @ -No Poses a threat to life or bodily function? How? (Chest pain, [place], [place], pneumonia, PE, COPD, DKA, ARF, appy, cholecystitis, CVA, Diverticulitis, Homicidal, Suicidal, threat to staff... and all critical care pts) @ -No Dr. Marrero is my attending Disposition Clinical Impression: Swelling of left lower extremity Disposition: HOME SELF-CARE Condition: Good Instructions (If sedation given, give patient instructions): Leg Edema (ED) Additional Instructions: Elevate the leg. Compression stockings will also help with swelling. Please follow-up with your primary care provider in 1-2 days. Return to the emergency department if you experience new, concerning, or worsening symptoms. Is patient prescribed a controlled substance at d/c from ED?: No Referrals: Grupo Tinoco MD [Primary Care Provider] - 1-2 days
[2023-03-22 19:25] VITALS: BP 166/68; PULSE 77
== END 2023-03-22 19:24 | disposition home or self-care (01) ==
LOC: EC 16:39
DX: R22.42 Localized swelling, mass and lump, left lower limb (principal); I48.91 Unspecified atrial fibrillation; E78.5 Hyperlipidemia, unspecified; I10 Essential (primary) hypertension; M19.90 Unspecified osteoarthritis, unspecified site; Z87.891 Personal history of nicotine dependence; Z88.8 Allergy status to other drugs, medicaments and biological substances; Z79.899 Other long term (current) drug therapy
CPT/HCPCS: 99283